=== PATIENT | female | born 1955 | race Caucasian/White ===

== ENCOUNTER → 2017-03-09 | Outpatient (CLI) | payer OTHER ==
--- NOTE | 2017-03-13 09:18 | MM ---
Reason for exam: screening (asymptomatic). Last mammogram was performed 8 years and 9 months ago. History: Patient is postmenopausal and has history of other cancer at age 49. Took estrogen for 2 years 2 months. Physical Findings: A clinical breast exam by your physician is recommended on an annual basis and results should be correlated with mammographic findings. MG Screening Mammo w CAD Bilateral CC and MLO view(s) were taken. Prior study comparison: May 29, 2008, bilateral digital screening mammogram. October 10, 2003, bilateral screening mammogram. There are scattered fibroglandular densities. Asymmetric breast tissue right inner lower quadrant, stable. There is no discrete abnormality. ASSESSMENT: Benign, BI-RAD 2 RECOMMENDATION: Routine screening mammogram of both breasts in 1 year.
== END | disposition home or self-care (01) ==
LOC: RADMAMWWP 15:31
PROVIDERS: ATTEND Family Medicine
DX: Z12.31 Encounter for screening mammogram for malignant neoplasm of breast (principal)

== ENCOUNTER 2017-03-13 09:16 | Day surgery (SDC) | payer OTHER ==
[2017-03-11 16:26] VITALS: BMI 28.2
[~2017-03-13 09:16] MED LIST: LACTATED RINGERS 1,000 ML IV SCH
[2017-03-13 09:38] VITALS: TEMP 98
[2017-03-13] MEDS ORDERED: LACTATED RINGERS 1,000 ML IV ONE (09:38)
[2017-03-13] MEDS ORDERED: LIDOCAINE 1% 20 ML VIAL (10MG/ML) FOR IV START INTRADERMA ONE (09:39)
[2017-03-13 09:48] LABS: Glucose,Whole Blood 92 mg/dL (75-99)
[2017-03-13] MEDS ORDERED: PROPOFOL 10 MG/ML 20 ML VIAL IV ONE (09:53)
[2017-03-13] MEDS ORDERED: LIDOCAINE 1% INJ 10MG/ML (20 ML MDV) ONE (09:53)
[2017-03-13 10:17] VITALS: RESP 16
--- NOTE | 2017-03-13 10:31 | P.OP ---
Date of Procedure: 03/13/17 Preoperative Diagnosis: History of Crohn's disease Surveillance colonoscopy Postoperative Diagnosis: Sigmoid diverticulosis Internal hemorrhoids Procedure(s) Performed: Colonoscopy Implants: NA Anesthesia: MAC Surgeon: Natasha Clifford Pathology: none sent Condition: stable Disposition: PACU Indications for Procedure: 61 years old female presents for screening colonoscopy. Known history of Crohn' s disease for more than 10 years. Her Crohn's is well controlled. On consent obtained and she elected to undergo colonoscopy with possible biopsy Operative Findings: Sigmoid diverticulosis Internal hemorrhoids Description of Procedure: The patient was brought to the endoscopy suite and placed in lateral decubitus position. IV sedation was given as per anesthesia team. Patient was on continuous vitals and pulse oximetry monitoring throughout the procedure. A timeout was performed to verify correct patient and correct procedure. Perianal examination did not show any external hemorrhoids. Digital rectal examination was performed. No masses or gross blood. A well-lubricated Olympus colonoscope was passed per rectally and was gradually advanced beyond the sigmoid colon, splenic flexure, transverse colon, hepatic flexure and cecum. The ileocecal valve was visualized as well as the appendiceal orifice . The colonoscope was gradually withdrawn inspecting all the mucosal surfaces. Bowel prep was good. No polyps, masses, AV malformations noted. Sigmoid diverticulosis noted without any evidence of acute diverticulitis. The scope was gradually withdrawn and retroflexed in the rectum . Grade 1 internal hemorrhoids seen. Total withdrawal time was greater than 6 minutes . Patient tolerated the procedure well and was taken to post anesthesia care unit in stable condition. Recommend repeat colonoscopy in 10 years .
[2017-03-13 10:32] VITALS: BP 145/91; PULSE 59
== END 2017-03-13 10:51 | disposition home or self-care (01) ==
LOC: ORWHC2ENDO 09:16
PROVIDERS: ATTEND Surgery
DX: Z12.11 Encounter for screening for malignant neoplasm of colon (principal); K57.30 Diverticulosis of large intestine without perforation or abscess without bleeding; K64.8 Other hemorrhoids; K50.90 Crohn's disease, unspecified, without complications; Z90.49 Acquired absence of other specified parts of digestive tract; K21.9 Gastro-esophageal reflux disease without esophagitis; Z79.52 Long term (current) use of systemic steroids; Z79.899 Other long term (current) drug therapy; F17.200 Nicotine dependence, unspecified, uncomplicated
CPT/HCPCS: J2001; J2704; G0105

== ENCOUNTER 2017-08-31 15:09 | Inpatient (IN) | payer OTHER ==
[2017-08-31] MEDS ORDERED: PANTOPRAZOLE 40 MG/10 ML VIAL IVP STA (16:42)
[2017-08-31 17:01] LABS: Anisocytosis Slight; Hypochromasia Marked; MCH 16.5 pg (25.0-35.0); MCHC 24.8 g/dL (31.0-37.0); MCV 66.6 fL (80.0-100.0); Mean Platelet Volume 6.4; Microcytosis Marked; Platelet Count 676 k/uL (150-450); Poikilocytosis Slight; RBC 2.43 m/uL (3.80-5.40); RDW 17.4 % (11.5-15.5); WBC 4.2 k/uL (3.8-10.6)
--- NOTE | 2017-08-31 17:01 | ED ---
Recheck HPI - General Chief Complaint: Recheck/Abnormal Lab/Rx Stated Complaint: SOB Time Seen by Provider: 08/31/17 16:15 Source: patient, RN notes reviewed Mode of arrival: ambulatory Limitations: no limitations - History of Present Illness Initial Comments: This is a 62-year-old female with a history of Crohn's disease who states she has had for the past week some dark brown colored stools some shortness of breath and some weakness. She also states she's had burning mid epigastric pain that she thought was her reflux. She had labs done in her doctor's office and she was told her hemoglobin was low and she needed to come the emergency department. She currently denies any fevers chills nausea vomiting sweats she has some mild right lower quadrant pain she states no dysuria no hematuria. She has no prior history of GI bleed. She has not had a colonoscopy for some period of time. MD Complaint: abnormal lab - Related Data Home Medications Medication Instructions Recorded Confirmed Cefuroxime Axetil [Ceftin] 500 mg PO Q12H 08/31/17 08/31/17 Meclizine [Antivert] 25 mg PO TID PRN 08/31/17 08/31/17 Ondansetron [Zofran] 4 mg PO Q8HR PRN 08/31/17 08/31/17 Allergies Allergy/AdvReac Type Severity Reaction Status Date / Time No Known Allergies Allergy Verified 08/31/17 16:29 Review of Systems ROS Statement: Those systems with pertinent positive or pertinent negative responses have been documented in the HPI. ROS Other: All systems not noted in ROS Statement are negative. Past Medical History Additional Past Medical History / Comment(s): CROHNS History of Any Multi-Drug Resistant Organisms: None Reported Past Surgical History: Bowel Resection, Cholecystectomy, Hernia Repair, Hysterectomy, Tonsillectomy Additional Past Surgical History / Comment(s): COLONOSCOPY Past Anesthesia/Blood Transfusion Reactions: No Reported Reaction Past Psychological History: No Psychological Hx Reported Smoking Status: Former smoker Past Alcohol Use History: None Reported Past Drug Use History: None Reported - Past Family History Father Family Medical History: Cancer Additional Family Medical History / Comment(s): lung Mother Family Medical History: Cancer Additional Family Medical History / Comment(s): brain General Exam - General Exam Comments Initial Comments: This is a well-developed well-nourished awake alert oriented 3 female she does appear pale Limitations: no limitations General appearance: alert, in no apparent distress Head exam: Present: atraumatic, normocephalic, normal inspection Eye exam: Present: PERRL, EOMI, other (Pale conjunctiva). Absent: scleral icterus, conjunctival injection, periorbital swelling ENT exam: Present: mucous membranes moist, other (Pale oral mucosa) Neck exam: Present: normal inspection. Absent: tenderness, meningismus, lymphadenopathy Respiratory exam: Present: normal lung sounds bilaterally. Absent: respiratory distress, wheezes, rales, rhonchi, stridor Cardiovascular Exam: Present: regular rate, normal rhythm, normal heart sounds. Absent: systolic murmur, diastolic murmur, rubs, gallop, clicks GI/Abdominal exam: Present: soft, tenderness (Very mild right lower quadrant discomfort to palpation no guarding or rebound), normal bowel sounds. Absent: distended, guarding, rebound, rigid Rectal exam: Present: normal inspection Extremities exam: Present: normal inspection, full ROM, normal capillary refill. Absent: tenderness, pedal edema, joint swelling, calf tenderness Back exam: Present: normal inspection Neurological exam: Present: alert, oriented X3, CN II-XII intact Psychiatric exam: Present: normal affect, normal mood Skin exam: Present: warm, dry, intact, pallor. Absent: rash Course Vital Signs 08/31/17 15:21 Temperature 99.0 F Pulse Rate 97 Respiratory 18 Rate Blood Pressure 144/64 O2 Sat by Pulse 100 Oximetry - Reevaluation(s) Reevaluation #1: 08/31/17 17:34 Reevaluation patient reveals no change in her status. She maintains her vital signs. No symptoms at rest. I did discuss findings with the patient and her . Patient be admitted I also did discuss the case with Dr. Narayanan. Patient will be admitted for units of blood will be ordered GI consultation. Medical Decision Making - Lab Data Result diagrams: 08/31/17 16:10 08/31/17 16:10 Lab Results 08/31/17 08/31/17 08/31/17 Range/Units 16:10 16:10 16:10 WBC 4.2 (3.8-10.6) k/uL RBC 2.43 L (3.80-5.40) m/uL Hgb 4.0 L* (11.4-16.0) gm/dL Hct 16.2 L* (34.0-46.0) % MCV 66.6 L (80.0-100.0) fL MCH 16.5 L (25.0-35.0) pg MCHC 24.8 L (31.0-37.0) g/dL RDW 17.4 H (11.5-15.5) % Plt Count 676 H (150-450) k/uL PT (9.0-12.0) sec INR (<1.2) APTT (22.0-30.0) sec Sodium 141 (137-145) mmol/L Potassium 4.2 (3.5-5.1) mmol/L Chloride 105 (98-107) mmol/L Carbon Dioxide 26 (22-30) mmol/L Anion Gap 10 mmol/L BUN 14 (7-17) mg/dL Creatinine 0.82 (0.52-1.04) mg/dL Est GFR (MDRD) Af Amer >60 (>60 ml/min/1.73 sqM) Est GFR (MDRD) Non-Af >60 (>60 ml/min/1.73 sqM) Glucose 84 (74-99) mg/dL Calcium 9.7 (8.4-10.2) mg/dL Magnesium 2.2 (1.6-2.3) mg/dL Total Bilirubin 0.3 (0.2-1.3) mg/dL AST 24 (14-36) U/L ALT 18 (9-52) U/L Alkaline Phosphatase 108 (38-126) U/L Total Creatine Kinase 53 (30-135) U/L CK-MB (CK-2) 0.5 (0.0-2.4) ng/mL CK-MB (CK-2) Rel Index 0.9 Troponin I <0.012 (0.000-0.034) ng/mL Total Protein 6.5 (6.3-8.2) g/dL Albumin 3.8 (3.5-5.0) g/dL Stool Occult Blood (Negative) Blood Type Blood Type Recheck Antibody Screen Spec Expiration Date 08/31/17 08/31/17 08/31/17 Range/Units 16:10 16:10 16:10 WBC (3.8-10.6) k/uL RBC (3.80-5.40) m/uL Hgb (11.4-16.0) gm/dL Hct (34.0-46.0) % MCV (80.0-100.0) fL MCH (25.0-35.0) pg MCHC (31.0-37.0) g/dL RDW (11.5-15.5) % Plt Count (150-450) k/uL PT 9.6 (9.0-12.0) sec INR 1.0 (<1.2) APTT 18.7 L (22.0-30.0) sec Sodium (137-145) mmol/L Potassium (3.5-5.1) mmol/L Chloride (98-107) mmol/L Carbon Dioxide (22-30) mmol/L Anion Gap mmol/L BUN (7-17) mg/dL Creatinine (0.52-1.04) mg/dL Est GFR (MDRD) Af Amer (>60 ml/min/1.73 sqM) Est GFR (MDRD) Non-Af (>60 ml/min/1.73 sqM) Glucose (74-99) mg/dL Calcium (8.4-10.2) mg/dL Magnesium (1.6-2.3) mg/dL Total Bilirubin (0.2-1.3) mg/dL AST (14-36) U/L ALT (9-52) U/L Alkaline Phosphatase (38-126) U/L Total Creatine Kinase (30-135) U/L CK-MB (CK-2) (0.0-2.4) ng/mL CK-MB (CK-2) Rel Index Troponin I (0.000-0.034) ng/mL Total Protein (6.3-8.2) g/dL Albumin (3.5-5.0) g/dL Stool Occult Blood Negative (Negative) Blood Type A Positive Blood Type Recheck CABO Indicated Antibody Screen NEGATIVE Spec Expiration Date 09/03/2017 - 2309 - EKG Data -: EKG Interpreted by Tx EKG shows normal: sinus rhythm (Sinus rhythm rate of 85 CT interval 174 QRS 94 QT since QTC 380/452 this is a normal-appearing EKG.) Critical Care Time Critical Care Time: Yes Critical Care Time: 31 minutes of critical care time which includes initial presentation with history physical labs x-rays several reevaluation the patient. Discussion with the patient family regarding findings discussion with the admitting physician documentation of the above. Disposition Clinical Impression: Symptomatic anemia, GI bleed Disposition: ADMITTED IP TO THIS [facility] Condition: Stable Referrals: Avelino Mendoza MD [Primary Care Provider] - 1-2 days
[2017-08-31 17:07] LABS: ALT 18 U/L (9-52); AST 24 U/L (14-36); Albumin 3.8 g/dL (3.5-5.0); Alkaline Phosphatase 108 U/L (38-126); Anion Gap 10 mmol/L; Blood Urea Nitrogen 14 mg/dL (7-17); Calcium 9.7 mg/dL (8.4-10.2); Carbon Dioxide 26 mmol/L (22-30); Chloride 105 mmol/L (98-107); Glucose 84 mg/dL (74-99); Magnesium 2.2 mg/dL (1.6-2.3); Potassium 4.2 mmol/L (3.5-5.1); Sodium 141 mmol/L (137-145); Total Bilirubin 0.3 mg/dL (0.2-1.3); Total Protein 6.5 g/dL (6.3-8.2)
[2017-08-31 17:08] LABS: Prothrombin Time 9.6 sec (9.0-12.0)
[2017-08-31 17:15] LABS: HCT 16.2 % (34.0-46.0)
[2017-08-31 17:18] LABS: Creatine Kinase 53 U/L (30-135)
[2017-08-31 17:26] LABS: Partial Thromboplastin Time 18.7 sec (22.0-30.0)
[2017-08-31 17:31] LABS: Creatine Kinase MB 0.5 ng/mL (0.0-2.4); Troponin I <0.012 ng/mL (0.000-0.034)
[2017-08-31] MEDS ORDERED: NALOXONE 0.4 MG/ML 1 ML VIAL IV PRN (17:36)
[2017-08-31] MEDS ORDERED: ONDANSETRON 4 MG TAB PO PRN (17:39)
[2017-08-31] MEDS ORDERED: MECLIZINE 25 MG TAB PO PRN (17:39)
[2017-08-31 17:44] LABS: Eosinophils # (M) 0.13 k/uL (0-0.7); Lymphocytes # (M) 1.05 k/uL (1.0-4.8); Monocytes # (M) 0.38 k/uL (0-1.0); Neutrophils # (M) 2.65 k/uL (1.3-7.7); Neutrophils % (M) 63 %; Nucleated Red Blood Cells 0 /100 WBC (0-0); Total Cells Counted 100
[2017-08-31 17:45] LABS: Polychromasia Present; RBC Fragments Present
--- NOTE | 2017-08-31 18:27 | XR ---
EXAMINATION TYPE: XR abdomen acute w cxr DATE OF EXAM: 08/31/2017 COMPARISON: NONE HISTORY: Follow-up obstruction. Abdominal pain. TECHNIQUE: 3 views FINDINGS: Heart is normal. Lungs are clear of consolidation. There are no hilar masses. There is a hiatal herni a. Thoracic aorta is atheromatous. There are chest leads. The bowel gas pattern is normal. There is no sign of intestinal obstruction or pneumoperitoneum. Feca l pattern is normal. There are no pathologic calcifications over the right kidney. There are several calcifications over the left kidney that measure up to 1 cm. The bony structures are intact. There is no evidence of a mass. IMPRESSION: Hiatal hernia. No active cardiopulmonary disease. There are probably left renal calculi. Nonacute abd omen. No evidence of bowel obstruction.
[2017-08-31] MEDS: SODIUM CHLORIDE 0.9% 1,000 ML IV SCH (18:34)
[2017-08-31] MEDS: CEFUROXIME 250 MG TAB PO SCH (21:05)
[2017-08-31] MEDS: PANTOPRAZOLE 40 MG/10 ML VIAL IV SCH (21:05)
--- NOTE | 2017-09-01 05:35 | HP ---
HISTORY AND PHYSICAL DATE OF SERVICE: 08/31/2017 Chief complaints are shortness of breath and as well as anemia. HISTORY OF PRESENT ILLNESS: This 62-year-old woman with a past medical history of multiple medical problems including history of Crohn's, history of GERD, history of adenoidectomy, bowel resection being followed by Dr. Mendoza in the outpatient setting progressively becoming shortness of breath and as well as weak. The patient has some dark brown stools and the patient also has some epigastric pain also. Patient thought the patient was having reflux and hemoglobin was checked in the doctor's office and subsequent hemoglobin was found to be very low and the patient taken to [facility] and admitted for further evaluation and treatment. Hemoglobin was found to be 4. Multiple transfusions are at this time. There is no history of any fever or rigors. No history of headache, loss of consciousness, seizures. PAST MEDICAL HISTORY: History of GERD, Crohn's disease, adenoidectomy, bowel resection. MEDICATIONS: Medications prior to admission include: 1. Zofran 4 mg q.8 p.r.n. 2. Antivert 25 mg t.i.d. p.r.n. 3. Ceftin 500 mg p.o. b.i.d. ALLERGIES: Allergies are none. FAMILY HISTORY: History of lung cancer in the family. SOCIAL HISTORY: Previous history of smoking. No history of current smoking. No alcohol intake. REVIEW OF SYSTEMS: ENT: No diminished hearing or diminished vision. CARDIOVASCULAR: No angina. RESPIRATORY: No cough or hemoptysis. GI: As mentioned earlier. : No dysuria. NERVOUS SYSTEM: No numbness or weakness. ALLERGY/IMMUNOLOGY: No history of asthma. MUSCULOSKELETAL: As mentioned earlier. HEMATOLOGY/ONCOLOGY: As mentioned earlier. ENDOCRINE: No history of diabetes or hypothyroidism. CONSTITUTIONAL: As mentioned earlier. DERMATOLOGY: Negative. RHEUMATOLOGY: Negative. PSYCHIATRY: As mentioned earlier. PHYSICAL EXAMINATION: The patient is alert and oriented x3. Pulse is 75, blood pressure is 133/69, respirations 16, temperature 97.9, pulse ox 97% on room air. HEENT: Conjunctivae pale. Oral mucosa moist. Neck is no jugular venous distention. No carotid bruit. No lymph node enlargement. CARDIOVASCULAR: S1 and S2 muffled. No S3 or S4. Ejection systolic murmur. RESPIRATORY: Breath sounds diminished at the bases. A few scattered rhonchi. No crackles. ABDOMEN: Soft, nontender. No mass palpable. LEGS: Minimal bilateral leg edema. NERVOUS SYSTEM: Higher functions as mentioned earlier. Moves all 4 limbs. No focal motor or sensory deficits LYMPHATICS: No lymphadenopathy of the neck, axillae or groin. SKIN: No ulcer, rash or bleeding. LABS: Labs are at this time shows WBC 4.2, hemoglobin is 4, MCV 66.6. ASSESSMENT: 1. Acute on chronic microcytic anemia possibly acute on chronic blood-loss anemia. 2. History of Crohn disease. 3. History of gastroesophageal reflux disease. 4. Rule out peptic ulcer disease. 5. History of bowel resection. 6. History of hernia surgery. RECOMMENDATIONS AND DISCUSSION: In this 62-year-old woman who presented with multiple complex medical issues, will monitor the patient closely, continue the current medications and symptomatic treatment. Recommend proton pump inhibitors, transfusions cautiously. Otherwise resume the home medications. Gastroenterology evaluation. The patient may need full endoscopy workup including possibly upper and lower endoscopic studies. The prognosis guarded because of multiple complex medical issues and will arrange for repeat labs tomorrow. Discussed with the patient. The patient understands and agrees. Further recommendations to follow. A copy of dictation being forwarded to Dr. Mendoza who is the primary physician. MMODL / IJN: [id number] / MTDD
[2017-09-01] MEDS ORDERED: FUROSEMIDE 10 MG/ML 2 ML VIAL IV ONE (07:34)
[2017-09-01] MEDS: CEFUROXIME 250 MG TAB PO SCH ×2 (07:55→20:46)
--- NOTE | 2017-09-01 10:44 | P.CONS ---
History of Present Illness - Reason for Consult Consult date: 09/01/17 Anemia Requesting physician: [place] Narayanan - History of Present Illness 62-year-old female patient Dr. Mendoza past medical history of Crohn's disease diagnosed at 16 years of age with no maintenance therapy, ileocecectomy, bowel resection for diverticulitis complications, GERD, and cholecystectomy. Admitted with fatigue 1 month without chest pain or shortness of breath. Denies overt bleeding such as hematemesis hematochezia melena hematuria or vaginal bleeding. Admission hemoglobin 4. MCV 66. Platelets 676. INR 1.0. White count 4.2. BUN 14. Creatinine 0.8. Received 3 units of blood with additional unit pending. Last colonoscopy several years ago. No EGD. She's been experiencing increased indigestion without relief from over-the- counter antacids for more than 6 months. Denies aspirin or NSAID usage. No alcohol. History of anemia during her pregnancies. Takes vitamin B and occasional multivitamin daily as needed. Denies abdominal pain or weight loss. Acute abdominal series no evidence of bowel obstruction. Review of Systems Constitutional: Denies fever, chills, sweats, weight gain, or loss. HEENT: Negative for migraines, blurred vision or loss, earaches, drainage, tinnitus, oral mucosal lesions, dysphagia, or odynophagia. CARDIAC: Negative for chest pain, arrhythmias, or palpitation. RESPIRATORY: Negative for shortness of breath, hemoptysis, cough, or sputum production. GI: See HPI for pertinent findings. : Negative for hematuria, urgency, frequency, polyuria, or dysuria. GYNc: Negative vaginal discharge. MUSCULOSKELETAL: Negative for muscle aches, swelling, arthritis, and arthralgias. NEUROLOGIC: Negative for stroke or TIA. ENDOCRINE: Negative for thyroid problems. SKIN: Negative for rash or itching. PSYCHIATRIC: Negative history for depression and anxiety Past Medical History Past Medical History: Cancer, GERD/Reflux Additional Past Medical History / Comment(s): CROHNS ,past sbo-no sx,abd hernia( sx), past cluster headaches, bronchitis,sinus pbs, diverticulitis, skin cancer. History of Any Multi-Drug Resistant Organisms: None Reported Past Surgical History: Adenoidectomy, Bowel Resection, Cholecystectomy, Hernia Repair, Hysterectomy, Tonsillectomy Additional Past Surgical History / Comment(s): COLONOSCOPY,per mph "cecum repair " done 20 years ago Past Anesthesia/Blood Transfusion Reactions: Motion Sickness Smoking Status: Former smoker - Past Family History Father Family Medical History: Cancer Additional Family Medical History / Comment(s): lung Mother Family Medical History: Cancer Additional Family Medical History / Comment(s): brain Medications and Allergies Home Medications Medication Instructions Recorded Confirmed Type Cefuroxime Axetil [Ceftin] 500 mg PO Q12H 08/31/17 08/31/17 History Meclizine [Antivert] 25 mg PO TID PRN 08/31/17 08/31/17 History Ondansetron [Zofran] 4 mg PO Q8HR PRN 08/31/17 08/31/17 History Allergies Allergy/AdvReac Type Severity Reaction Status Date / Time No Known Allergies Allergy Verified 08/31/17 16:29 Physical Exam Vitals: Vital Signs Temp Pulse Pulse Resp BP BP Pulse Ox 09/01/17 07:47 98.5 F 87 18 143/77 98 09/01/17 07:17 98.1 F 72 18 137/75 95 09/01/17 07:07 98.9 F 74 18 141/67 95 09/01/17 05:49 98.4 F 78 16 136/82 09/01/17 03:38 98.4 F 84 16 139/51 96 09/01/17 03:37 98.4 F 84 18 139/51 96 09/01/17 03:08 98.5 F 75 16 141/70 94 L 09/01/17 02:58 98.1 F 75 18 138/73 98 09/01/17 01:07 98.5 F 75 16 141/70 94 L 09/01/17 00:00 98.0 F 78 16 134/68 98 08/31/17 23:32 98.0 F 78 16 134/68 98 08/31/17 23:02 97.9 F 75 16 133/69 97 08/31/17 22:52 97.8 F 77 16 137/80 96 08/31/17 22:23 97.8 F 77 18 137/80 08/31/17 20:33 98.1 F 86 16 131/79 96 08/31/17 20:03 98.0 F 85 16 128/68 98 08/31/17 20:00 98.0 F 85 16 128/68 98 08/31/17 19:53 97.7 F 93 16 153/71 99 08/31/17 18:34 97 F L 87 18 161/69 100 08/31/17 18:00 98.1 F 97 20 125/60 98 08/31/17 15:21 99.0 F 97 18 144/64 100 Intake and Output 08/31/17 09/01/17 09/01/17 22:59 06:59 14:59 Intake Total 310 870 480 Balance 310 870 480 Intake: Intake, IV Titration 100 Amount Sodium Chloride 0.9% 1, 100 000 ml @ 20 mls/hr IV . Q24H [facility] Rx#:[id number] Oral 150 480 Blood Product 310 620 0 Rc As-1 Unit 0 310 [id number] Rc As-3 Unit 310 [id number] Rc As-3 Unit 0 [id number] Rc As-3 Unit 310 [id number] Other: Voiding Method Toilet Toilet Toilet # Voids 3 1 Weight 81.647 kg 84.7 kg General appearance: The patient is alert, oriented, in no acute distress. HET: Head is normocephalic and atraumatic. Pupils are equal and reactive. Oropharynx is clear without lesions. Neck: Supple without lymphadenopathy. Trachea midline. Heart: S1 S2. Regular rate and rhythm. Lungs: No crackles or wheezes are heard. Abdomen: Soft, nontender, nondistended with bowel sounds. No peritoneal signs. No palpable organomegaly or masses. Extremities: Normal skin color and turgor. No cyanosis, rash, ulceration, clubbing, or edema. Radial and pedal pulses are 2/4 bilaterally. Neurological: No focal deficits. Strength and sensation are grossly intact. Results CBC & Chem 7: 08/31/17 16:10 08/31/17 16:10 Labs: Abnormal Lab Results - Last 24 Hours (Table) 08/31/17 08/31/17 08/31/17 Range/Units 16:10 16:10 16:10 RBC 2.43 L (3.80-5.40) m/uL Hgb 4.0 L* (11.4-16.0) gm/dL Hct 16.2 L* (34.0-46.0) % MCV 66.6 L (80.0-100.0) fL MCH 16.5 L (25.0-35.0) pg MCHC 24.8 L (31.0-37.0) g/dL RDW 17.4 H (11.5-15.5) % Plt Count 676 H (150-450) k/uL APTT 18.7 L (22.0-30.0) sec Crossmatch See Detail Abdominal x-ray: report reviewed (Dr. Trejo) Assessment and Plan (1) Symptomatic anemia Narrative/Plan: 62-year-old female admitted with symptomatic anemia with a history of Crohn's disease, ileocecectomy, diagnosed at 16 years of age without overt bleeding such as hematemesis hematochezia melena. Possible anemia of chronic disease possible occult GI loss. Current Visit: Yes Status: Acute Code(s): D64.9 - ANEMIA, UNSPECIFIED SNOMED Code(s): 941025324 (2) History of Crohn's disease Current Visit: Yes Status: Chronic Code(s): Z87.19 - PERSONAL HISTORY OF OTHER DISEASES OF THE DIGESTIVE SYSTEM SNOMED Code(s): 401343683899788 (3) GERD (gastroesophageal reflux disease) Current Visit: Yes Status: Chronic Code(s): K21.9 - GASTRO-ESOPHAGEAL REFLUX DISEASE WITHOUT ESOPHAGITIS SNOMED Code(s): 238301740 Plan: 1. Iron indices. MVI daily. 2. Blood transfusions. CBC monitoring. 3. EGD colonoscopy evaluation scheduled tomorrow afternoon. The as400 consultant has discussed the risks, benefits and alternative therapies for the above-mentioned procedure and for both sedation/analgesia as well as necessary blood product administration, if indicated, as they pertain to this patient. The patient has indicated understanding and acceptance of the risks and procedures discussed. Thank you for this kind referral and the opportunity to participate in the care of your patient. This consultation was discussed with Dr. Trejo. The impression and plan of care have been directed as dictated.
[2017-09-01] MEDS: PANTOPRAZOLE 40 MG/10 ML VIAL IV SCH ×2 (10:52→20:46)
[2017-09-01] MEDS: SODIUM CHLORIDE 0.9% 1,000 ML IV SCH (10:53)
[2017-09-01] MEDS: MULTIVITAMINS, THERA 1 EACH TAB PO SCH (11:25)
[2017-09-01] MEDS ORDERED: FOLIC ACID 1 MG TAB PO SCH (12:00)
[2017-09-01 13:36] LABS: Anisocytosis Slight; Basophils % (A) 0 %; Eosinophils # (A) 0.2 k/uL (0-0.7); Eosinophils % (A) 5 %; HCT 30.2 % (34.0-46.0); Hypochromasia Marked; Lymphocytes % (A) 22 %; MCH 22.9 pg (25.0-35.0); MCHC 29.7 g/dL (31.0-37.0); Mean Platelet Volume 6.1; Microcytosis Moderate; Monocytes # (A) 0.3 k/uL (0-1.0); Monocytes % (A) 7 %; Neutrophils # (A) 2.8 k/uL (1.3-7.7); Neutrophils % (A) 64 %; Platelet Count 565 k/uL (150-450); Poikilocytosis Marked; RBC 3.92 m/uL (3.80-5.40); RDW 19.6 % (11.5-15.5); WBC 4.4 k/uL (3.8-10.6)
[2017-09-01 13:46] LABS: Anion Gap 12 mmol/L; Blood Urea Nitrogen 9 mg/dL (7-17); Calcium 9.4 mg/dL (8.4-10.2); Carbon Dioxide 26 mmol/L (22-30); Chloride 104 mmol/L (98-107); Glucose 144 mg/dL (74-99); Potassium 4.2 mmol/L (3.5-5.1); Sodium 142 mmol/L (137-145)
[2017-09-01] MEDS ORDERED: PEG 3350-NA SULF,BICARB,CL/KCL 4,000 ML BOTTLE PO ONE (16:00)
--- NOTE | 2017-09-01 18:12 | PN ---
PROGRESS NOTE DATE OF SERVICE: 09/01/2017 This 62-year-old woman who was admitted with significant anemia, possibly acute on chronic GI bleed, had a hemoglobin of 4. After 4 units of transfusion, hemoglobin is 9 at this time. No chest pain. No palpitations. No fever. Gastroenterology is following the patient and recommended EGD and colonoscopy tomorrow. On exam, alert and oriented x3. Pulse 79, blood pressure 144/73, respiration 18, temperature 98.8, pulse ox 99% on room air. HEENT: Conjunctivae normal. Oral mucosa moist. NECK: No jugular venous distention. No carotid bruit. No lymph node enlargement. CARDIOVASCULAR SYSTEM: S1, S2 muffled. Ejection systolic murmur. No S3. No S4. RESPIRATORY SYSTEM: Breath sounds diminished at the bases. No rhonchi. No crackles. ABDOMEN: Soft, nontender. No mass palpable. LEGS: Minimal edema. NERVOUS SYSTEM: No focal deficit. LABS: WBC 4.5. Hemoglobin is 9. MCV is 77. ASSESSMENT: 1. Acute on chronic microcytic anemia, possibly acute on chronic gastrointestinal blood loss anemia. 2. History of Crohn's disease. 3. History of gastroesophageal reflux disease. 4. Rule out peptic ulcer disease. 5. History of bowel resection. 6. History of hernia surgery. RECOMMENDATIONS AND DISCUSSION: I recommend to continue current medication, continue symptomatic treatment. Hemoglobin is improved after transfusion; however, we will proceed with EGD and colonoscopy as recommended by Gastroenterology. Possibility of peptic ulcer disease needs to be ruled out because the patient had upper GI symptoms also. The prognosis is guarded because of the multiple complex medical issues. Further recommendations to follow. MMODL / IJN: [id number] /
[2017-09-01 19:37] LABS: Iron Saturation 8.66 (12.00-45.00)
[2017-09-01] MEDS ORDERED: ACETAMINOPHEN TAB 325 MG TAB PO PRN (20:38)
[2017-09-01 22:42] VITALS: RESP 16
[2017-09-02 06:11] LABS: Anisocytosis Moderate; Basophils % (A) 1 %; Eosinophils # (A) 0.3 k/uL (0-0.7); Eosinophils % (A) 7 %; HCT 29.3 % (34.0-46.0); HGB 8.7 gm/dL (11.4-16.0); Hypochromasia Marked; Lymphocytes # (A) 1.3 k/uL (1.0-4.8); Lymphocytes % (A) 28 %; MCHC 29.8 g/dL (31.0-37.0); MCV 77.1 fL (80.0-100.0); Mean Platelet Volume 6.6; Microcytosis Moderate; Monocytes # (A) 0.3 k/uL (0-1.0); Monocytes % (A) 7 %; Neutrophils # (A) 2.6 k/uL (1.3-7.7); Neutrophils % (A) 55 %; Platelet Count 553 k/uL (150-450); Poikilocytosis Marked; RDW 20.2 % (11.5-15.5); WBC 4.7 k/uL (3.8-10.6)
[2017-09-02 06:21] LABS: Anion Gap 8 mmol/L; Blood Urea Nitrogen 7 mg/dL (7-17); Calcium 9.4 mg/dL (8.4-10.2); Carbon Dioxide 28 mmol/L (22-30); Chloride 103 mmol/L (98-107); Glucose 85 mg/dL (74-99); Potassium 4.2 mmol/L (3.5-5.1); Sodium 139 mmol/L (137-145)
[2017-09-02] MEDS ORDERED: LACTATED RINGERS 1,000 ML IV SCH (07:21)
[2017-09-02] MEDS: CEFUROXIME 250 MG TAB PO SCH (09:33)
[2017-09-02] MEDS: PANTOPRAZOLE 40 MG/10 ML VIAL IV SCH (09:33)
[2017-09-02] MEDS: MULTIVITAMINS, THERA 1 EACH TAB PO SCH (11:27)
[2017-09-02 11:39] VITALS: TEMP 97.6
[2017-09-02] MEDS ORDERED: PROPOFOL 10 MG/ML 20 ML VIAL IV ONE (13:03)
[2017-09-02] MEDS ORDERED: LIDOCAINE 1% INJ 10MG/ML (20 ML MDV) ONE (13:03)
[2017-09-02] MEDS ORDERED: IV FLUID CONTINUATION 900 ML IV ONE (13:07)
--- NOTE | 2017-09-02 14:01 | P.PCN ---
Date of Procedure: 09/02/17 Procedure(s) Performed: Procedures: 1. Esophagogastroduodenoscopy and biopsy. 2. Colonoscopy and biopsy. Preoperative diagnosis: Symptomatic iron deficiency anemia and history of Crohn' s disease. Postoperative diagnosis: 1. Hiatal hernia with no obvious esophagitis or complicated reflux disease. 2. Mild antral gastritis. 3. Colon diverticulosis with no evidence of inflammatory bowel disease. 4. Biopsies obtained from the duodenum, antrum, esophagus and random colon. Preparation: GoLYTELY prep. Sedation: Was provided by anesthesia. Brief clinical history: The patient is a 62-year-old female with past medical history of Crohn's disease diagnosed at age 16 years on no maintenance therapy, with prior ileocecectomy, bowel resection for diverticulitis complications, GERD , and cholecystectomy, was admitted with fatigue 1 month without chest pain or shortness of breath. Denies overt bleeding. Admission hemoglobin 4. MCV 66. Platelets 676. INR 1.0. White count 4.2. BUN 14. Creatinine 0.8. Received 4 units of packed cells. Her last colonoscopy was several years ago, no prior EGD. She's been experiencing increased indigestion without relief from over-the- counter antacids for more than 6 months. Denies aspirin or NSAID usage. No alcohol. History of anemia during her pregnancies. Takes vitamin B and occasional multivitamin daily as needed. Denies abdominal pain or weight loss. Acute abdominal series no evidence of bowel obstruction. The details are summarized in the history and physical and dictated consultations and progress notes. This evaluation is to assess for a possible source of GI bleeding and anemia. Procedure: With the patient on her left lateral decubitus position and after informed consent and adequate sedation, I passed the Olympus-GIF 160 video upper endoscope through the cricopharyngeus down the esophagus. GE junction was around 33 cm from the incisors and there was a moderately sized hiatal hernia but no obvious esophagitis or complicated reflux disease. The endoscope was then passed into the stomach which was insufflated with air and inspected in detail including the retroflex view in the cardia. There was minimal mottling and erythema in the antrum but no ulcers or erosions. Pyloric channel , duodenal bulb, post bulbar area and descending duodenum appeared within normal limits. Because of her history, I obtained biopsies from the duodenum, antrum and esophagus then the endoscope was withdrawn and I proceeded with the colonoscopy. Perianal area did not show any fissures or fistulas. There were no masses felt on digital rectal examination. The Olympus CFQ 160L video colonoscope was then inserted in the rectum in the usual fashion and advanced to the right colon and what appeared to be the last compartment on the right side, but I could not see an anastomosis with the small bowel and I was not able to identify and intubate the small intestine. In the areas examined, the mucosa appeared healthy. Multiple diverticular orifices were seen scattered mostly on the left side with no evidence of acute diverticulitis or strictures. No polyps or tumors were seen. Because of her history, I obtained biopsies randomly from the colon then I retroflexed the endoscope in the rectum before the endoscope was withdrawn. The patient tolerated the procedure well. Plan: I summarized the findings to the patient. Because of her profound anemia , consideration will be given for a small bowel study based on her course and biopsy results. We will continue to follow with you with interest.
[2017-09-02 15:47] VITALS: BP 148/77; PULSE 74
--- NOTE | 2017-09-03 07:02 | DS ---
DISCHARGE SUMMARY DATE OF SERVICE: 09/02/2017 FINAL DIAGNOSES: 1. Acute on chronic microcytic anemia possibly acute on chronic gastrointestinal blood loss secondary to Crohn disease. 2. Status post EGD and colonoscopy showing hiatal hernia with no esophagitis or reflux disease; mild antral gastritis and diverticulosis with no evidence of inflammatory bowel disease. 3. History of Crohn disease. 4. History of gastroesophageal reflux disease. 5. History of bowel resection. 6. History of hernia surgery. DISCHARGE DISPOSITION: The patient will be discharged in stable condition with guarded prognosis. HISTORY OF PRESENT ILLNESS: This 62-year-old woman with a past medical history of multiple medical problems admitted with symptomatic anemia. Hemoglobin was 4. Four units of transfusion were given. Hemoglobin improved to 8.7, stable. Patient is feeling much better. Dr. Trejo performed endoscopies as mentioned earlier. Biopsies are pending at this time. On exam, vitals are stable. CARDIOVASCULAR: S1 and S2 muffled. ABDOMEN: Soft. NERVOUS SYSTEM: No focal deficits. DISCHARGE ADVICE: 1. Diet is cardiac. 2. Activity limited until followup. 3. Follow up with Dr. Mendoza in 2 to 3 days. 4. Follow up with Dr. Trejo as advised. Medications will be: 1. Ceftin 500 mg p.o. b.i.d. for 6 days. 2. Antivert 25 mg t.i.d. p.r.n. 3. Multivitamins 1 p.o. daily. 4. Zofran 4 mg q.8 p.r.n. 5. Protonix 40 mg p.o. b.i.d. Follow-up labs on a periodic basis in the outpatient setting. Ceftin to finish the home dose. MMODL / IJN: [id number] /
== END 2017-09-02 16:49 | disposition home or self-care (01) | DRG 386 ==
LOC: EC 15:09 → 6SEL 17:36
PROVIDERS: ADMIT Hospitalist; ATTEND Hospitalist
PROC: 30233N1 Transfusion of Nonautologous Red Blood Cells into Peripheral Vein, Percutaneous Approach (ICD-10-PCS; 2017-08-31)
PROC: 0DB58ZX Excision of Esophagus, Via Natural or Artificial Opening Endoscopic, Diagnostic (ICD-10-PCS; 2017-09-02)
PROC: 0DBE8ZX Excision of Large Intestine, Via Natural or Artificial Opening Endoscopic, Diagnostic (ICD-10-PCS; 2017-09-02)
PROC: 0DB98ZX Excision of Duodenum, Via Natural or Artificial Opening Endoscopic, Diagnostic (ICD-10-PCS; principal; 2017-09-02 13:00)
PROC: 0DB68ZX Excision of Stomach, Via Natural or Artificial Opening Endoscopic, Diagnostic (ICD-10-PCS; 2017-09-02 13:00)
DX: K50.918 Crohn's disease, unspecified, with other complication (principal); D62 Acute posthemorrhagic anemia; K92.2 Gastrointestinal hemorrhage, unspecified; K21.9 Gastro-esophageal reflux disease without esophagitis; K29.60 Other gastritis without bleeding; K44.9 Diaphragmatic hernia without obstruction or gangrene; K57.30 Diverticulosis of large intestine without perforation or abscess without bleeding; R01.1 Cardiac murmur, unspecified; Z87.891 Personal history of nicotine dependence; Z90.710 Acquired absence of both cervix and uterus; Z90.49 Acquired absence of other specified parts of digestive tract
CPT/HCPCS: 36415; 43239; 45380; 74022; 80048; 80053; 82272; 82550; 82553; 82728; 83540; 83550; 83735; 84484; 85025; 85610; 85730; 86850; 86900; 86901; 86920; 88305; 93005; 96374; 99291

== ENCOUNTER → 2017-11-19 | Outpatient (CLI) | payer OTHER ==
[2017-11-19 17:34] LABS: Appearance,Urine Clear (Clear); Bilirubin,Urine Negative (Negative); Blood,Urine Moderate (Negative); Calcium Oxalate Crystals,Urine Occasional /hpf; Color,Urine Yellow; Glucose,Urine (UA) Negative (Negative); Hyaline Casts,Urine 1 /lpf (0-2); Ketones,Urine Negative (Negative); Leukocyte Esterase,Urine Moderate (Negative); Mucus,Urine Rare /hpf; Nitrite,Urine Negative (Negative); PH, Urine 6.5 (5.0-8.0); Protein,Urine Negative (Negative); RBC,Urine >182 /hpf (0-5); Specific Gravity,Urine 1.014 (1.001-1.035); Squamous Epithelial Cell,Urine <1 /hpf (0-4); Urobilinogen,Urine <2.0 mg/dL (<2.0); WBC,Urine 10 /hpf (0-5)
--- NOTE | 2017-11-20 08:54 | CT ---
EXAMINATION TYPE: CT abdomen pelvis wo/w con DATE OF EXAM: 11/19/2017 HISTORY: LLQ abd pain. CT DLP: 2180mGycm Automated Exposure Control for Dose Reduction was Utilized. CONTRAST: CT scan of the abdomen and pelvis is performed without and with IV Contrast, patient injected with 10 0ml mL of Isovue M300. COMPARISON: 12/21/2015. FINDINGS: LUNG BASES: No significant abnormality is appreciated. LIVER/GB: Gallbladder surgically absent. Too small to accurately characterize segment 7 5 mm hypoatte nuated hepatic lesion is identified.. PANCREAS: No significant abnormality is seen. SPLEEN: No significant abnormality is seen. ADRENALS: There is slight thickening of the left adrenal gland although it maintains a normal adrenif orm shape without discrete measurable nodule. Right adrenal gland is unremarkable. KIDNEYS: Right lower pole hyperdense 1.6 x 1.4 cm lesion is not appreciated on the prior exam of 2015 . This could represent a hyperdense hemorrhagic/proteinaceous renal cyst as there is no enhancement o n delayed imaging although ultrasound is recommended to ensure some increased through transmission. O ther right midpole renal cysts measure up to 1.4 cm. Within the left kidney there are 2 partial obstr ucting left renal pelvic calculi measuring 7 mm and 5 mm with blunting of the superior calyces and pe ripelvic subtle fat stranding. Additional nonobstructing calculi within the left mid pole and lower p ole are seen (3 in number) measuring up to 5 mm. There is a exophytic 8mm left renal cyst BOWEL: There is a moderate hiatal hernia containing residual or reflux contrast. There is long segmen t thickening of the distal ileum and terminal ileum extending from the pelvis on series 3 image 65 op portunity terminal ileum on series 3 image 46. Valvulae conniventes a are poorly defined within the d istal ileum. Scattered prominent right lower quadrant lymph nodes are also seen although nonenlarged. Additionally there is diffuse thickening of the sigmoid colon with surrounding vasa recta engorgement although no pericolonic fat stranding is seen. Other scattered colonic diverticula are noted. Mild b owel wall thickening is also appreciated of the hepatic flexure and transverse colon. Note is made of a fat filled small right inguinal hernia. Subcentimeter tiny fat filled umbilical hernia is also see n. LYMPH NODES: No greater than 1cm abdominal or pelvic lymph nodes are appreciated. OSSEOUS STRUCTURES: Mild multilevel degenerative changes of the visualized thoracolumbar spine are no anuel. IMPRESSION: 1. Findings suggesting chronic a recently resolved sigmoid diverticulitis as there is bowel wall thic kening and vasa recta engorgement without pericolonic fat stranding. 2. Multifocal bowel wall thickening within the hepatic flexure, transverse colon, and distal ileum in cluding the terminal ileum. Findings raise suspicion for inflammatory bowel disease although these fi ndings could also be infectious in etiology. 3. Moderate hiatal hernia with residual contrast that could relate to delayed propulsion or gastroeso phageal reflux. 4. Hyperdense right renal lesion with no appreciable enhancement although this was not present on the prior exam of 2016 and renal ultrasound is recommended to ensure some increased through transmission as this may represent a hemorrhagic/proteinaceous renal cyst or renal mass. 5. Partially obstructing left renal sinus calculi creating surrounding inflammatory fat stranding and minimal left-sided hydronephrosis. Additional nonobstructing calculi are seen on the left.
== END | disposition home or self-care (01) ==
LOC: RADCTMAIN 16:00
PROVIDERS: ATTEND Surgery
DX: N13.2 Hydronephrosis with renal and ureteral calculous obstruction (principal); K44.9 Diaphragmatic hernia without obstruction or gangrene; K21.9 Gastro-esophageal reflux disease without esophagitis; N28.9 Disorder of kidney and ureter, unspecified
CPT/HCPCS: 81001; 74178; Q9967

== ENCOUNTER → 2018-03-23 | Outpatient (CLI) | payer OTHER ==
[2018-03-23 09:52] LABS: Appearance,Urine Cloudy (Clear); Bilirubin,Urine Negative (Negative); Blood,Urine Small (Negative); Color,Urine Yellow; Glucose,Urine (UA) Negative (Negative); Ketones,Urine Negative (Negative); Leukocyte Esterase,Urine Large (Negative); Mucus,Urine Moderate /hpf; Nitrite,Urine Negative (Negative); PH, Urine 6.5 (5.0-8.0); Protein,Urine 1+ (Negative); RBC,Urine 25 /hpf (0-5); Specific Gravity,Urine 1.017 (1.001-1.035); Squamous Epithelial Cell,Urine 2 /hpf (0-4); Urobilinogen,Urine <2.0 mg/dL (<2.0); WBC,Urine 60 /hpf (0-5)
[2018-03-23 10:03] LABS: Anion Gap 5 mmol/L; Blood Urea Nitrogen 18 mg/dL (7-17); Calcium 9.5 mg/dL (8.4-10.2); Carbon Dioxide 29 mmol/L (22-30); Chloride 108 mmol/L (98-107); Glucose 90 mg/dL (74-99); Sodium 142 mmol/L (137-145)
[2018-03-23 10:15] LABS: Basophils % (A) 1 %; Eosinophils # (A) 0.2 k/uL (0-0.7); Eosinophils % (A) 5 %; HCT 39.1 % (34.0-46.0); HGB 12.1 gm/dL (11.4-16.0); Hypochromasia Slight; Lymphocytes % (A) 30 %; MCH 28.7 pg (25.0-35.0); MCV 92.4 fL (80.0-100.0); Mean Platelet Volume 6.3; Monocytes # (A) 0.3 k/uL (0-1.0); Monocytes % (A) 8 %; Neutrophils # (A) 1.8 k/uL (1.3-7.7); Neutrophils % (A) 55 %; Platelet Count 262 k/uL (150-450); RBC 4.23 m/uL (3.80-5.40); RDW 14.1 % (11.5-15.5); WBC 3.3 k/uL (3.8-10.6)
== END | disposition home or self-care (01) ==
LOC: LABPAT 09:06
PROVIDERS: ATTEND Urology
DX: Z01.812 Encounter for preprocedural laboratory examination (principal); N20.0 Calculus of kidney; R35.0 Frequency of micturition; R31.29 Other microscopic hematuria; Z51.81 Encounter for therapeutic drug level monitoring; Z79.01 Long term (current) use of anticoagulants
CPT/HCPCS: 36415; 80048; 81001; 85025; 86850; 86900; 86901; 87086

== ENCOUNTER 2018-03-31 06:19 | Observation (INO) | payer OTHER ==
[2018-03-25 13:16] VITALS: BMI 28.3
--- NOTE | 2018-03-30 19:31 | P.GSHP ---
History of Present Illness H&P Date: 03/30/18 The patient is a pleasant 62 yo female that comes for a pcnl left due to a large volume of kidney stones THe alternatives have been discussed. The risks and complications of a PCNL including infection, bleeding , pain , injury to the kidney or adjacent organs, transfusion, loss of kidney among others have been explained understood and accepted. - Constitutional Constitutional: Denies chills, Denies fever - Genitourinary (Female) Genitourinary: Reports as per HPI Past Medical History Past Medical History: Cancer, GERD/Reflux Additional Past Medical History / Comment(s): CROHNS, past cluster headaches, bronchitis,sinus, diverticulitis, skin cancer History of Any Multi-Drug Resistant Organisms: None Reported Past Surgical History: Adenoidectomy, Bowel Resection, Cholecystectomy, Hernia Repair, Hysterectomy, Tonsillectomy Additional Past Surgical History / Comment(s): COLONOSCOPY,per mph "cecum repair " done 20 years ago, abd. hernia repair with mesh Past Anesthesia/Blood Transfusion Reactions: Motion Sickness Smoking Status: Former smoker - Past Family History Father Family Medical History: Cancer Additional Family Medical History / Comment(s): lung Mother Family Medical History: Cancer Additional Family Medical History / Comment(s): brain Medications and Allergies Home Medications Medication Instructions Recorded Confirmed Type Multivitamins, Thera [Multivitamin 1 each PO DAILY@1200 #30 tab 09/02/17 Rx (formulary)] Acetaminophen [Tylenol Extra 500 mg PO DAILY PRN 03/25/18 03/25/18 History Strength] Ferrous Sulfate [Feosol] 325 mg PO DAILY 03/25/18 03/25/18 History Omeprazole [PriLOSEC] 20 mg PO AC-BRKFST 03/25/18 03/25/18 History Allergies Allergy/AdvReac Type Severity Reaction Status Date / Time No Known Allergies Allergy Verified 03/25/18 13:07 Surgical - Exam - General well developed, well nourished, no distress - Eyes PERRL - ENT no hearing loss - Neck trachea midline - Respiratory normal expansion, normal respiratory effort - Cardiovascular Rhythm: regular - Abdomen Abdomen: soft, non tender - Neurologic normal coordination, normal sensation - Musculoskeletal normal gait, normal posture - Psychiatric oriented to time, oriented to person, oriented to place, speech is normal, memory intact Results - Imaging CT scan - abdomen: report reviewed, image reviewed CT scan - pelvis: report reviewed, image reviewed Assessment and Plan Assessment: Impression: Left renal calculi large. Plan: PCNL left
[~2018-03-31 06:19] MED LIST changes: -LACTATED RINGERS 1,000 ML IV SCH; +ceFAZolin 1,000 MG in DEXTROSE/WATER 1 50ML.BAG IVPB ONE
[2018-03-31] MEDS ORDERED: MIDAZOLAM 2 MG/2 ML VIAL IV PRN (06:26)
[2018-03-31] MEDS ORDERED: ONDANSETRON 4 MG/2 ML VIAL IVP ONE (06:26)
[2018-03-31] MEDS ORDERED: SCOPOLAMINE 1.5MG/72HR PATCH TRANSDERM ONE (06:26)
[2018-03-31] MEDS ORDERED: LIDOCAINE 1% 20 ML VIAL (10MG/ML) FOR IV START INTRADERMA PRN (06:26)
[2018-03-31] MEDS ORDERED: DEXAMETHASONE SOD PHOSPHATE 10 MG/ML 1 ML VIAL IV ONE (06:26)
[2018-03-31] MEDS ORDERED: LIDOCAINE 1% 20 ML VIAL (10MG/ML) FOR IV START INTRADERMA ONE (07:10)
[2018-03-31] MEDS: LACTATED RINGERS 1,000 ML IV SCH (07:19)
--- NOTE | 2018-03-31 07:49 | XR ---
EXAMINATION TYPE: XR KUB DATE OF EXAM: 03/31/2018 6:43 AM CLINICAL HISTORY: Left-sided kidney stones. TECHNIQUE: Single supine KUB image of the abdomen is obtained. COMPARISON: CT abdomen and pelvis November 19, 2017 FINDINGS: There is redemonstration of 5-6 left-sided renal calculi with largest measuring 13 mm long axis centrally likely in the renal pelvis. This is perhaps slightly changed position from CT as is no w most superior position calculus. There is punctate 3 mm calculus lower pole level right kidney felt identified on radiograph correlating with CT. There are few pelvic phleboliths and left-sided vascul ar pelvic calcifications. Oval density right pelvis is presumed overlying or ingested nonbroken down pill. Cholecystectomy clips are redemonstrated. There is overall nonobstructive bowel gas pattern. Visualiz ed osseous structures are intact. IMPRESSION: Stable significant left-sided renal nephrolithiasis.
[2018-03-31] MEDS ORDERED: MIDAZOLAM 2 MG/2 ML VIAL ONE (08:26)
[2018-03-31] MEDS ORDERED: PROPOFOL 10 MG/ML 20 ML VIAL IV ONE (08:26)
[2018-03-31] MEDS ORDERED: fentaNYL (PF) 50 MCG/ML 2 ML AMP ONE (08:26)
[2018-03-31] MEDS ORDERED: ePHEDrine SULFATE/0.9% NACL/PF 50 MG/5 ML SYRINGE IV ONE (08:26)
[2018-03-31] MEDS ORDERED: SUCCINYLCHOLINE CHLORIDE 100 MG/5 ML SYR IV ONE (08:26)
[2018-03-31] MEDS ORDERED: LIDOCAINE 1% INJ 10MG/ML (20 ML MDV) ONE (08:26)
[2018-03-31] MEDS ORDERED: SODIUM CHLORIDE 0.9% IRRIGATION ONE ×2 (09:02)
[2018-03-31] MEDS ORDERED: IOHEXOL IRRIGATION ONE ×2 (09:02)
[2018-03-31] MEDS ORDERED: LACTATED RINGERS 1,000 ML IV ONE (09:53)
[2018-03-31] MEDS: HYDROmorphone 0.5 MG/0.5 ML SYRINGE IVP PRN ×4 (10:16→10:33)
[2018-03-31] MEDS ORDERED: ONDANSETRON 4 MG/2 ML VIAL IVP PRN (10:20)
[2018-03-31] MEDS ORDERED: ACETAMINOPHEN TAB 500 MG TAB PO PRN (10:20)
[2018-03-31] MEDS ORDERED: MAG HYDROX/AL HYDROX/SIMETH 30 ML CUP PO PRN (10:20)
[2018-03-31] MEDS ORDERED: HYDROmorphone PCA 5 MG/25 ML SYRINGE IV PRN (10:22)
[2018-03-31] MEDS ORDERED: NALOXONE 0.4 MG/ML 1 ML VIAL IV PRN (10:22)
--- NOTE | 2018-03-31 10:26 | P.OP ---
Date of Procedure: 03/31/18 Preoperative Diagnosis: Left renal stone, large Postoperative Diagnosis: Same Procedure(s) Performed: Cystoscopy, placement of occluding balloon catheter left, 5-Dutch, percutaneous nephrostomy (Dr. Wilson) percutaneous nephrostolithotomy at ultrasound, placement of 10 J nephrostomy Anesthesia: ROBERTH Surgeon: Timur Cohen Estimated Blood Loss (ml): 200 Pathology: other (Stone) Condition: stable Disposition: PACU Indications for Procedure: The patient is 62. She has large left renal calculi that are painful. She comes for percutaneous nephrostolithotomy. The stone volumes greater than 2 cm Description of Procedure: The patient is brought to the operating suite. She is given a successful general endotracheal anesthesia. She's placed in a frog position on the transport gurney with a sterile prep and drape. Cystoscopy with a Foroblique lens and 22-Dutch sheath identifies normal ureteral orifice. The left ureteral orifice is identified and intubated with a 5-Dutch occluding balloon catheter. It is secured to a 16-Dutch Thao. The patient's placed in prone position with care to airways and extremities. Dr. Maldonado of radiology performed percutaneous nephrostomy access to the left lower pole calyx. I then dilate the tract to 30-Dutch. Introduced the rigid scope into the collecting system and remove clot. We first identify lower pole calyceal stone which is removed with graspers it is about a centimeter. We then identify a large left renal pelvic stone that is origin requires ultrasonic lithotripsy. I then grasped the larger segments. Looked throughout the collecting system and do an intraoperative nephrostogram see no remaining calyceal stones. An Dutch J nephrostomy tube was placed. The patient is awake and returned recovery room good condition. Blood loss about 200 mL. She' ll be placed in the hospital postoperatively.
[2018-03-31] MEDS: KETOROLAC 30 MG/ML 1 ML VIAL IVP PRN ×3 (10:33→21:46)
[2018-03-31] MEDS ORDERED: fentaNYL (PF) 50 MCG/ML 2 ML AMP IVP ONE (10:35)
[2018-03-31] MEDS: DEXTROSE 5%-0.45% NACL 1,000 ML IV SCH ×2 (11:45→20:10)
[2018-03-31] MEDS: ACETAMINOPHEN TAB 325 MG TAB PO PRN ×2 (13:30→23:10)
--- NOTE | 2018-03-31 14:24 | FL ---
EXAMINATION TYPE: FL Perc Nephrostomy New Access DATE OF EXAM: 03/31/2018 COMPARISON: NONE HISTORY: Left renal stone. PROCEDURE: Maximal barrier technique was utilized. The skin overlying the left kidney was localized using fluor oscopy and the overlying skin prepped and draped. Lidocaine used for local anesthesia. Skin angel wa s made with a scalpel. Access was gained under fluoroscopy, following placement of a ureteral occlus ion balloon by the referring clinician and instillation of air in the renal collecting system with a 21-gauge needle to the kidney. A suitable posterior calyx was chosen. A 0.018 inch wire was advanc ed. The access site was dilated and subsequently a sheath was advanced into the renal pelvis followi ng dilation with balloon along the tract. Urine returned in the hub of the catheter. The patient unde rwent nephrolithotomy by the referring clinician. The patient remained in stable condition without complication. The patient was discharged to observation. 11 minutes 1 second fluoroscopy time, 1 int raoperative image obtained. IMPRESSION: STATUS POST NEPHROSTOMY PLACEMENT FOR NEPHROLITHOTOMY WITH FLUOROSCOPIC GUIDANCE. THIS PROCEDURE PER FORMED BY THE UNDERSIGNED.
[2018-04-01] MEDS: KETOROLAC 30 MG/ML 1 ML VIAL IVP PRN (04:09)
--- NOTE | 2018-04-01 06:27 | P.DS ---
Providers Date of admission: 04/01/18 00:15 Attending physician: Timur Cohen Primary care physician: [facility] Course: The patient was admitted to the hospital yesterday 03/31/2018 for a left percutaneous nephrostolithotomy of a large volume of kidney stones. These were removed using percutaneous access and ultrasound technique. She did well overnight. Her urine is cleared. Her nephrostomy urine is clear. She is not having pain other than what is required by Toradol. Her abdomen is soft. She is tolerating a regular diet. She'll be discharged home this morning. She'll go home with a nephrostomy tube. She will follow-up Thursday to have her nephrostomy tube removal. Postoperative instructions been given. She's given a prescription for Toradol. She will resume her home medications. She's been instructed and nephrostomy tube care. If she has any problem she'll contact us. Condition is good. Patient Condition at Discharge: Good Plan - Discharge Summary New Discharge Prescriptions: New Ketorolac [Toradol] 10 mg PO Q6HR PRN #20 tab PRN Reason: Pain No Action RX: Multivitamins, Thera [Multivitamin (formulary)] 1 each PO DAILY@1200 #30 tab Ferrous Sulfate [Feosol] 325 mg PO DAILY Omeprazole [PriLOSEC] 20 mg PO AC-BRKFST Acetaminophen [Tylenol Extra Strength] 500 mg PO DAILY PRN PRN Reason: Pain Discharge Medication List RX: Multivitamins, Thera [Multivitamin (formulary)] 1 each PO DAILY@1200 #30 tab 09/02/17 [Rx] Acetaminophen [Tylenol Extra Strength] 500 mg PO DAILY PRN 03/25/18 [History] Ferrous Sulfate [Feosol] 325 mg PO DAILY 03/25/18 [History] Omeprazole [PriLOSEC] 20 mg PO AC-BRKFST 03/25/18 [History] Ketorolac [Toradol] 10 mg PO Q6HR PRN #20 tab 04/01/18 [Rx] Follow up Appointment(s)/Referral(s): Timur Cohen MD [STAFF PHYSICIAN] - 04/05/18 Activity/Diet/Wound Care/Special Instructions: With nephrostomy tube, instructed may shower if she covers or changes the dressing
[2018-04-01] MEDS: DEXTROSE 5%-0.45% NACL 1,000 ML IV SCH (07:19)
[2018-04-01] MEDS ORDERED: PANTOPRAZOLE 40 MG TABLET PO SCH (07:30)
[2018-04-01] MEDS: LACTATED RINGERS 1,000 ML IV SCH (08:32)
[2018-04-01 09:09] VITALS: BP 147/68; PULSE 67; RESP 20; TEMP 97.6
== END 2018-04-01 10:16 | disposition home or self-care (01) ==
LOC: OR 06:19 → 6PED 11:19 → OR 04-01 00:14 → 6PED 04-01 00:15
PROVIDERS: ADMIT Urology; ATTEND Urology
DX: N20.0 Calculus of kidney (principal); K21.9 Gastro-esophageal reflux disease without esophagitis; K50.90 Crohn's disease, unspecified, without complications; Z85.828 Personal history of other malignant neoplasm of skin; Z90.49 Acquired absence of other specified parts of digestive tract; Z90.710 Acquired absence of both cervix and uterus; F17.210 Nicotine dependence, cigarettes, uncomplicated; Z79.899 Other long term (current) drug therapy
CPT/HCPCS: 96374; 96375; 82365; 50432; 74018; G0378; C1769 ×4; C2628; C1894; C1729; J2250; J1100; J2405; J2001; J3010; J1885 ×2; J0690; J0330; J2704; Q9967; J1170

== ENCOUNTER 2018-09-02 06:09 | Inpatient (IN) | payer OTHER ==
[2018-09-02] MEDS ORDERED: SODIUM CHLORIDE 0.9% 500 ML 500 ML IV STA (06:24)
[2018-09-02] MEDS ORDERED: MORPHINE SULFATE 4 MG/ML SYRINGE IV STA (06:24)
[2018-09-02 06:39] LABS: Basophils % (A) 0 %; Eosinophils # (A) 0.2 k/uL (0-0.7); Eosinophils % (A) 2 %; HCT 39.8 % (34.0-46.0); HGB 12.5 gm/dL (11.4-16.0); Hypochromasia Slight; Lymphocytes # (A) 0.4 k/uL (1.0-4.8); Lymphocytes % (A) 3 %; MCH 27.8 pg (25.0-35.0); MCHC 31.3 g/dL (31.0-37.0); MCV 88.7 fL (80.0-100.0); Mean Platelet Volume 6.7; Monocytes # (A) 0.2 k/uL (0-1.0); Monocytes % (A) 2 %; Neutrophils # (A) 9.9 k/uL (1.3-7.7); Neutrophils % (A) 93 %; Platelet Count 322 k/uL (150-450); RBC 4.48 m/uL (3.80-5.40); WBC 10.7 k/uL (3.8-10.6)
[2018-09-02 06:47] LABS: Amorphous Sediment,Urine Rare /hpf; Appearance,Urine Cloudy (Clear); Bacteria,Urine Rare /hpf; Bilirubin,Urine Negative (Negative); Blood,Urine Trace (Negative); Color,Urine Yellow; Glucose,Urine (UA) Negative (Negative); Ketones,Urine 1+ (Negative); Leukocyte Esterase,Urine Small (Negative); Mucus,Urine Many /hpf; Nitrite,Urine Negative (Negative); Protein,Urine 1+ (Negative); RBC,Urine 12 /hpf (0-5); Specific Gravity,Urine 1.017 (1.001-1.035); Urobilinogen,Urine <2.0 mg/dL (<2.0); WBC,Urine 5 /hpf (0-5)
[2018-09-02 06:48] LABS: ALT 29 U/L (9-52); AST 28 U/L (14-36); Albumin 4.3 g/dL (3.5-5.0); Alkaline Phosphatase 122 U/L (38-126); Amylase 61 U/L (30-110); Anion Gap 8 mmol/L; Blood Urea Nitrogen 22 mg/dL (7-17); Calcium 9.9 mg/dL (8.4-10.2); Carbon Dioxide 23 mmol/L (22-30); Chloride 109 mmol/L (98-107); Glucose 159 mg/dL (74-99); Lipase 96 U/L (23-300); Potassium 4.3 mmol/L (3.5-5.1); Sodium 140 mmol/L (137-145); Total Bilirubin 0.6 mg/dL (0.2-1.3); Total Protein 7.3 g/dL (6.3-8.2)
[2018-09-02] MEDS ORDERED: HYDROmorphone 1 MG/ML 1 ML SYRINGE IVP STA (07:11)
[2018-09-02] MEDS ORDERED: ONDANSETRON 4 MG/2 ML VIAL IVP STA (07:11)
[2018-09-02 07:13] LABS: C Reactive Protein 11.3 mg/L (<10.0)
--- NOTE | 2018-09-02 07:15 | ED ---
General Adult HPI - General Chief complaint: Abdominal Pain Stated complaint: Abdominal Pain Time Seen by Provider: 09/02/18 07:00 Source: patient, EMS, RN notes reviewed Mode of arrival: EMS Limitations: no limitations - History of Present Illness Initial comments: This is a 63-year-old female presents emergency Department with a past medical history significant for Crohn's disease acid reflux and a cholecystectomy appendectomy hysterectomy. Patient states she started having abdominal pain this afternoon is worsening epigastric region. Patient states she's been nauseated and vomiting. Patient states she's also had diarrhea. Patient states this does not feel typical of her Crohn's pain. Patient denies any fever chills per patient denies any chest pain difficulty breathing shortness of breath. Patient denies any black or bloody stools or any black or bloody vomitus. Patient denies any back pain. Patient denies any dysuria hematuria urinary frequency. Patient denies any leg swelling or calf tenderness. - Related Data Home Medications Medication Instructions Recorded Confirmed Omeprazole [PriLOSEC] 20 mg PO BID PRN 03/25/18 09/02/18 Multivitamins, Thera [Multivitamin 1 tab PO DAILY 09/02/18 09/02/18 (formulary)] Vitamin B Complex 1 cap PO DAILY 09/02/18 09/02/18 Allergies Allergy/AdvReac Type Severity Reaction Status Date / Time No Known Allergies Allergy Verified 09/02/18 06:51 Review of Systems ROS Statement: Those systems with pertinent positive or pertinent negative responses have been documented in the HPI. ROS Other: All systems not noted in ROS Statement are negative. Past Medical History Past Medical History: Cancer, GERD/Reflux Additional Past Medical History / Comment(s): CROHNS, past cluster headaches, bronchitis,sinus, diverticulitis, skin cancer History of Any Multi-Drug Resistant Organisms: None Reported Past Surgical History: Adenoidectomy, Bowel Resection, Cholecystectomy, Hernia Repair, Hysterectomy, Tonsillectomy Additional Past Surgical History / Comment(s): COLONOSCOPY,per mph "cecum repair " done 20 years ago, abd. hernia repair with mesh Past Anesthesia/Blood Transfusion Reactions: Motion Sickness Past Psychological History: No Psychological Hx Reported Smoking Status: Current every day smoker - Past Family History Father Family Medical History: Cancer Additional Family Medical History / Comment(s): lung Mother Family Medical History: Cancer Additional Family Medical History / Comment(s): brain General Exam - General Exam Comments Initial Comments: nGENERAL: Patient is well-developed and well-nourished. Patient is nontoxic and well- hydrated and is in moderate distress. ENT: Neck is soft and supple. No significant lymphadenopathy is noted. Oropharynx is clear. Moist mucous membranes. Neck has full range of motion without eliciting any pain. EYES: The sclera were anicteric and conjunctiva were pink and moist. Extraocular movements were intact and pupils were equal round and reactive to light. Eyelids were unremarkable. PULMONARY: Unlabored respirations. Good breath sounds bilaterally. No audible rales rhonchi or wheezing was noted. CARDIOVASCULAR: There is a regular rate and rhythm without any murmurs gallops or rubs. ABDOMEN: Patient has diffuse abdominal pain. Patient has some rebound tenderness in the left side. SKIN: Skin is clear with no lesions or rashes and otherwise unremarkable. NEUROLOGIC: Patient is alert and oriented x3. Cranial nerves II through XII are grossly intact. Motor and sensory are also intact. Normal speech, volume and content. Symmetrical smile. MUSCULOSKELETAL: Normal extremities with adequate strength and full range of motion. No lower extremity swelling or edema. No calf tenderness. LYMPHATICS: No significant lymphadenopathy is noted PSYCHIATRIC: Normal psychiatric evaluation. Limitations: no limitations Course Vital Signs 09/02/18 09/02/18 09/02/18 06:10 07:24 07:25 Temperature 99.4 F Pulse Rate 91 72 72 Respiratory 16 16 19 Rate Blood Pressure 149/76 134/76 134/76 O2 Sat by Pulse 95 99 99 Oximetry 09/02/18 07:28 Temperature 97.8 F Pulse Rate Respiratory Rate Blood Pressure O2 Sat by Pulse Oximetry Medical Decision Making - Medical Decision Making Computed tomography scan shows ileitis or possible Crohn's. Patient states she was diagnosed Crohn's for years ago but hasn't taken anything in decades. I spoke with [facility] hospitalist agreed to admit the patient admitted the patient I consulted GI. - Lab Data Result diagrams: 09/02/18 06:25 09/02/18 06:25 Lab Results 09/02/18 09/02/18 09/02/18 Range/Units 06:25 06:25 06:36 WBC 10.7 H (3.8-10.6) k/uL RBC 4.48 (3.80-5.40) m/uL Hgb 12.5 (11.4-16.0) gm/dL Hct 39.8 (34.0-46.0) % MCV 88.7 (80.0-100.0) fL MCH 27.8 (25.0-35.0) pg MCHC 31.3 (31.0-37.0) g/dL RDW 14.0 (11.5-15.5) % Plt Count 322 (150-450) k/uL Neutrophils % 93 % Lymphocytes % 3 % Monocytes % 2 % Eosinophils % 2 % Basophils % 0 % Neutrophils # 9.9 H (1.3-7.7) k/uL Lymphocytes # 0.4 L (1.0-4.8) k/uL Monocytes # 0.2 (0-1.0) k/uL Eosinophils # 0.2 (0-0.7) k/uL Basophils # 0.0 (0-0.2) k/uL Hypochromasia Slight Sodium 140 (137-145) mmol/L Potassium 4.3 (3.5-5.1) mmol/L Chloride 109 H (98-107) mmol/L Carbon Dioxide 23 (22-30) mmol/L Anion Gap 8 mmol/L BUN 22 H (7-17) mg/dL Creatinine 0.79 (0.52-1.04) mg/dL Est GFR (CKD-EPI)AfAm >90 (>60 ml/min/1.73 sqM) Est GFR (CKD-EPI)NonAf 81 (>60 ml/min/1.73 sqM) Glucose 159 H (74-99) mg/dL Calcium 9.9 (8.4-10.2) mg/dL Total Bilirubin 0.6 (0.2-1.3) mg/dL AST 28 (14-36) U/L ALT 29 (9-52) U/L Alkaline Phosphatase 122 (38-126) U/L C-Reactive Protein 11.3 H (<10.0) mg/L Total Protein 7.3 (6.3-8.2) g/dL Albumin 4.3 (3.5-5.0) g/dL Amylase 61 (30-110) U/L Lipase 96 (23-300) U/L Urine Color Yellow Urine Appearance Cloudy H (Clear) Urine pH 7.0 (5.0-8.0) Ur Specific [place] 1.017 (1.001-1.035) Urine Protein 1+ H (Negative) Urine Glucose (UA) Negative (Negative) Urine Ketones 1+ H (Negative) Urine Blood Trace H (Negative) Urine Nitrite Negative (Negative) Urine Bilirubin Negative (Negative) Urine Urobilinogen <2.0 (<2.0) mg/dL Ur Leukocyte Esterase Small H (Negative) Urine RBC 12 H (0-5) /hpf Urine WBC 5 (0-5) /hpf Amorphous Sediment Rare H (None) /hpf Urine Bacteria Rare H (None) /hpf Urine Mucus Many H (None) /hpf Disposition Clinical Impression: Ileitis, History of Crohn's disease Disposition: ADMITTED IP TO THIS [facility] Referrals: Avelino Mendoza MD [Primary Care Provider] - 1-2 days Time of Disposition: 08:45
--- NOTE | 2018-09-02 08:33 | CT ---
EXAMINATION TYPE: CT abdomen pelvis w con DATE OF EXAM: 09/02/2018 COMPARISON: 11/19/2017 HISTORY: Abdominal pain CT DLP: 1143 mGycm CONTRAST: CT scan of the abdomen and pelvis is performed without Oral Contrast and with IV Contrast, patient in jected with 100 mL of Isovue 300. FINDINGS: LUNG BASES-: No visible nodule. No infiltrate. Moderate fixed hiatal hernia. LIVER/GB: Cholecystectomy clips noted. No space occupying hepatic lesion. Biliary tree is of sincere l caliber. PANCREAS: No inflammation. No distinct mass. SPLEEN: No splenic enlargement. No lesion seen. ADRENALS: No nodule. No thickening. KIDNEYS/BLADDER: No hydronephrosis. Nonobstructing left-sided nephrolithiasis. Renal cystic changes noted. No distinct solid renal mass. Urinary bladder grossly unremarkable. BOWEL: Dilated small bowel measuring up to 3.3 cm with caliber change noted within the distal ileum. Distal ileum demonstrates wall thickening which may reflect ileitis or Crohn's disease. GENITAL ORGANS: No gross abnormality. LYMPH NODES: No greater than 1cm abdominal or pelvic lymph nodes are appreciated. AORTA: No significant abnormality. OSSEOUS STRUCTURES: No significant abnormality is seen. OTHER: No significant additional abnormality is seen. IMPRESSION: 1. Dilated small bowel measuring up to 3.3 cm with caliber change noted within the distal ileum. Dist al ileum demonstrates wall thickening which may reflect ileitis or Crohn's disease.
[2018-09-02] MEDS ORDERED: SODIUM CHLORIDE 0.9% 1,000 ML IV ONE (08:45)
[2018-09-02] MEDS: HYDROmorphone 0.5 MG/0.5 ML SYRINGE IVP PRN ×2 (08:57→12:51)
[2018-09-02] MEDS: ONDANSETRON 4 MG/2 ML VIAL IVP PRN ×3 (08:57→22:08)
[2018-09-02 10:35] VITALS: BMI 30.9
[2018-09-02] MEDS ORDERED: HYDROmorphone 0.5 MG/0.5 ML SYRINGE IVP STA ×3 (13:30→16:02)
--- NOTE | 2018-09-02 16:11 | P.HPIM ---
History of Present Illness This is a pleasant 63 years old female with past medical history of GERD, Crohn' s disease, diverticulitis, cluster headache, kidney stones, who presents because of abdominal pain in the right middle abdomen close to the umbilicus., Feels like burning, dull quite severe of 1-2 days's duration, associated with frequent nausea vomiting, patient vomited about 10 times. She had loose bowel movement twice last night last one was earlier this morning at 5:00. Since then she is passing gases. Vitas looks stable, mild leukocytosis at 10.7 K. Rest of CBC and CMP were unremarkable. Liver enzymes not elevated. She has CT of the abdomen and pelvis with contrast: Dilated small bowel, with caliber change within the ileum , and there is distal ileum wall thickening suspicious for ileitis or Crohn's disease. Review of Systems CONSTITUTIONAL: No fever, no malaise, no fatigue. HEENT: No recent visual problems or hearing problems. Denied any sore throat. CARDIOVASCULAR: No orthopnea, PND, no palpitations, no syncope. PULMONARY: No shortness of breath, no cough, no hemoptysis. GASTROINTESTINAL: No diarrhea, no nausea, no vomiting, no abdominal pain. Normoactive bowel sounds. NEUROLOGICAL: No headaches, no weakness, no numbness. HEMATOLOGICAL: Denies any bleeding or petechiae. GENITOURINARY: Denies any burning micturition, frequency, or urgency. MUSCULOSKELETAL/RHEUMATOLOGICAL: Denies any joint pain, swelling, or any muscle pain. ENDOCRINE: Denies any polyuria or polydipsia. Past Medical History Past Medical History: Cancer, GERD/Reflux, Renal Disease Additional Past Medical History / Comment(s): Chron's, diverticulitis, cluster headaches, bronchitis, sinus problems, nephrolithiasis with surgery, skin cancer with removal, anemia. History of Any Multi-Drug Resistant Organisms: None Reported Past Surgical History: Adenoidectomy, Appendectomy, Bowel Resection, Cholecystectomy, Heart Catheterization, Hernia Repair, Hysterectomy, Tonsillectomy Additional Past Surgical History / Comment(s): Colonoscopies, EGD, cecum repair , L percutaneous nephrostolithotomy/cystoscopy, abdominal hernia repair with mesh, R foot fracture d/t fracture, skin cancer removals. Past Anesthesia/Blood Transfusion Reactions: Motion Sickness Additional Past Anesthesia/Blood Transfusion Reaction / Comment(s): Pt has received blood in past without reaction. Past Psychological History: No Psychological Hx Reported Additional Psychological History / Comment(s): Pt resides with her spouse. She is independent. She states she recently retired. Smoking Status: Current some day smoker Past Alcohol Use History: Occasional Additional Past Alcohol Use History / Comment(s): Pt states she has smoked on and off since 1982. When she smokes it is not frequent and it is very lightly. She last smoked 3 months ago. Past Drug Use History: None Reported - Past Family History Father Family Medical History: Cancer Additional Family Medical History / Comment(s): lung Mother Family Medical History: Cancer Additional Family Medical History / Comment(s): brain Medications and Allergies Home Medications Medication Instructions Recorded Confirmed Type Omeprazole [PriLOSEC] 20 mg PO BID PRN 03/25/18 09/02/18 History Multivitamins, Thera [Multivitamin 1 tab PO DAILY 09/02/18 09/02/18 History (formulary)] Vitamin B Complex 1 cap PO DAILY 09/02/18 09/02/18 History Allergies Allergy/AdvReac Type Severity Reaction Status Date / Time No Known Allergies Allergy Verified 09/02/18 06:51 Physical Exam Vitals: Vital Signs Temp Pulse Pulse Resp BP BP Pulse Ox 09/02/18 12:52 98.1 F 96 18 166/94 96 09/02/18 09:55 98.1 F 96 24 166/90 96 09/02/18 09:17 97.9 F 85 16 168/85 95 09/02/18 07:28 97.8 F 09/02/18 07:25 72 19 134/76 99 09/02/18 07:24 72 16 134/76 99 09/02/18 06:10 99.4 F 91 16 149/76 95 Intake and Output 09/02/18 09/02/18 09/02/18 06:59 14:59 22:59 Output Total 250 Balance -250 Output: Urine 200 Emesis 50 Other: Weight 79.379 kg GENERAL: The patient is alert and oriented x3, not in any acute distress. Well developed, well nourished. HEENT: Pupils are round and equally reacting to light. EOMI. No scleral icterus. No conjunctival pallor. Normocephalic, atraumatic. No pharyngeal erythema. No thyromegaly. CARDIOVASCULAR: S1 and S2 present. No murmurs, rubs, or gallops. PULMONARY: Chest is clear to auscultation, no wheezing or crackles. -ABDOMEN: Soft, right periumbilical tenderness, no rebound tenderness or guarding nondistended, normoactive bowel sounds. No palpable organomegaly. MUSCULOSKELETAL: No joint swelling or deformity. EXTREMITIES: No cyanosis, clubbing, or pedal edema. NEUROLOGICAL: Gross neurological examination did not reveal any focal deficits. SKIN: No rashes. Results CBC & Chem 7: 09/02/18 06:25 09/02/18 06:25 Labs: Abnormal Lab Results - Last 24 Hours (Table) 09/02/18 09/02/18 09/02/18 Range/Units 06:25 06:25 06:36 WBC 10.7 H (3.8-10.6) k/uL Neutrophils # 9.9 H (1.3-7.7) k/uL Lymphocytes # 0.4 L (1.0-4.8) k/uL Chloride 109 H (98-107) mmol/L BUN 22 H (7-17) mg/dL Glucose 159 H (74-99) mg/dL C-Reactive Protein 11.3 H (<10.0) mg/L Urine Appearance Cloudy H (Clear) Urine Protein 1+ H (Negative) Urine Ketones 1+ H (Negative) Urine Blood Trace H (Negative) Ur Leukocyte Esterase Small H (Negative) Urine RBC 12 H (0-5) /hpf Amorphous Sediment Rare H (None) /hpf Urine Bacteria Rare H (None) /hpf Urine Mucus Many H (None) /hpf Thrombosis Risk Factor Assmnt - Choose All That Apply Each Factor Represents 1 point: Obesity (BMI >25) Other Risk Factors: Yes Each Risk Factor Represents 2 Points: Age 61-74 years Other congenital or acquired thrombophilia - If yes, enter type in comment: No Thrombosis Risk Factor Assessment Total Risk Factor Score: 3 Thrombosis Risk Factor Assessment Level: Moderate Risk Assessment and Plan Assessment: Neurologic small bowel, rule out bowel obstruction ileitis versus acute Crohn's disease exacerbation History of GERD History of diverticulitis History of cluster headache History of nephrolithiasis Plan: This is a pleasant 63 years old female who presents with ileitis and dilated small bowel. We'll continue with IV hydration, keep nothing by mouth, start antibiotics. Also consult gastroenterology and general surgery. Start pt on zosyn , GI and DVT prophylaxis, we'll keep monitoring the patient. Further recommendation based on the clinical course of her disease. DVT prophylaxis: Heparin GI prophylaxis Protonix Prognosis is guarded
[2018-09-02] MEDS: PANTOPRAZOLE 40 MG/10 ML VIAL IVP SCH (16:28)
[2018-09-02] MEDS: DEXTROSE 5%-0.9% NACL 1,000 ML IV SCH (16:29)
[2018-09-02] MEDS: PIPERACILLIN-TAZOBACTAM 3.375 GM in SODIUM CHLORIDE 0.9% 100 ML IVPB SCH (17:46)
--- NOTE | 2018-09-02 18:13 | P.GSCN ---
History of Present Illness Consult date: 09/02/18 Reason for Consult: Abdominal pain History of present illness: The patient is a 63-year-old female that presented to the emergency this morning with abdominal pain. The pain started yesterday. She noticed a lot of bloating in the abdomen yesterday evening. She went to get dressed for a on the clothing was very tight across drain abdomen. Today the pain worsened and she had frequent vomiting along with diarrhea and a couple of episodes of fecal incontinence. She does have known Crohn's disease. Currently not on any medication for the Crohn's. Denies blood in the stool or dark tarry stool. Denies weight loss. Denies fevers, she may have had some chills. Feeling better this evening. Last colonoscopy was done in August 2017. At that time the terminal ileum was not intubated. In 2016 a colonoscopy also was performed, the terminal ileum was not intubated at that time. Review of Systems All systems: negative Past Medical History Past Medical History: Cancer, GERD/Reflux, Renal Disease Additional Past Medical History / Comment(s): Chron's, diverticulitis, cluster headaches, bronchitis, sinus problems, nephrolithiasis with surgery, skin cancer with removal, anemia. History of Any Multi-Drug Resistant Organisms: None Reported Past Surgical History: Adenoidectomy, Appendectomy, Bowel Resection, Cholecystectomy, Heart Catheterization, Hernia Repair, Hysterectomy, Tonsillectomy Additional Past Surgical History / Comment(s): Colonoscopies, EGD, cecum repair , L percutaneous nephrostolithotomy/cystoscopy, abdominal hernia repair with mesh, R foot fracture d/t fracture, skin cancer removals. Past Anesthesia/Blood Transfusion Reactions: Motion Sickness Additional Past Anesthesia/Blood Transfusion Reaction / Comm: Pt has received blood in past without reaction. Past Psychological History: No Psychological Hx Reported Additional Psychological History / Comment(s): Pt resides with her spouse. She is independent. She states she recently retired. Smoking Status: Current some day smoker Past Alcohol Use History: Occasional Additional Past Alcohol Use History / Comment(s): Pt states she has smoked on and off since 1982. When she smokes it is not frequent and it is very lightly. She last smoked 3 months ago. Past Drug Use History: None Reported - Past Family History Father Family Medical History: Cancer Additional Family Medical History / Comment(s): lung Mother Family Medical History: Cancer Additional Family Medical History / Comment(s): brain Medications and Allergies Home Medications Medication Instructions Recorded Confirmed Type Omeprazole [PriLOSEC] 20 mg PO BID PRN 03/25/18 09/02/18 History Multivitamins, Thera [Multivitamin 1 tab PO DAILY 09/02/18 09/02/18 History (formulary)] Vitamin B Complex 1 cap PO DAILY 09/02/18 09/02/18 History Allergies Allergy/AdvReac Type Severity Reaction Status Date / Time No Known Allergies Allergy Verified 09/02/18 06:51 Surgical - Exam Osteopathic Statement: *. No significant issues noted on an osteopathic structural exam other than those noted in the History and Physical/Consult. Vital Signs Temp Pulse Resp BP Pulse Ox 99.4 F 91 16 149/76 95 09/02/18 06:10 09/02/18 06:10 09/02/18 06:10 09/02/18 06:10 09/02/18 06:10 - General well developed, well nourished, no distress - Eyes normal ocular movement - Neck trachea midline, no lymphadectomy - Respiratory normal expansion, normal respiratory effort, clear to auscultation - Cardiovascular Rhythm: regular - Abdomen Abdomen: soft, tender (Mild diffuse tenderness), bowel sounds, no guarding, no rebound, distended - Psychiatric oriented to time, oriented to person, oriented to place, speech is normal, memory intact Results - Labs 09/02/18 06:25 09/02/18 06:25 Abnormal Lab Results - Last 24 Hours (Table) 09/02/18 09/02/18 09/02/18 Range/Units 06:25 06:25 06:36 WBC 10.7 H (3.8-10.6) k/uL Neutrophils # 9.9 H (1.3-7.7) k/uL Lymphocytes # 0.4 L (1.0-4.8) k/uL Chloride 109 H (98-107) mmol/L BUN 22 H (7-17) mg/dL Glucose 159 H (74-99) mg/dL C-Reactive Protein 11.3 H (<10.0) mg/L Urine Appearance Cloudy H (Clear) Urine Protein 1+ H (Negative) Urine Ketones 1+ H (Negative) Urine Blood Trace H (Negative) Ur Leukocyte Esterase Small H (Negative) Urine RBC 12 H (0-5) /hpf Amorphous Sediment Rare H (None) /hpf Urine Bacteria Rare H (None) /hpf Urine Mucus Many H (None) /hpf Diabetes panel 09/02/18 Range/Units 06:25 Sodium 140 (137-145) mmol/L Potassium 4.3 (3.5-5.1) mmol/L Chloride 109 H (98-107) mmol/L Carbon Dioxide 23 (22-30) mmol/L BUN 22 H (7-17) mg/dL Creatinine 0.79 (0.52-1.04) mg/dL Glucose 159 H (74-99) mg/dL Calcium 9.9 (8.4-10.2) mg/dL AST 28 (14-36) U/L ALT 29 (9-52) U/L Alkaline Phosphatase 122 (38-126) U/L Total Protein 7.3 (6.3-8.2) g/dL Albumin 4.3 (3.5-5.0) g/dL Calcium panel 09/02/18 Range/Units 06:25 Calcium 9.9 (8.4-10.2) mg/dL Albumin 4.3 (3.5-5.0) g/dL Pituitary panel 09/02/18 Range/Units 06:25 Sodium 140 (137-145) mmol/L Potassium 4.3 (3.5-5.1) mmol/L Chloride 109 H (98-107) mmol/L Carbon Dioxide 23 (22-30) mmol/L BUN 22 H (7-17) mg/dL Creatinine 0.79 (0.52-1.04) mg/dL Glucose 159 H (74-99) mg/dL Calcium 9.9 (8.4-10.2) mg/dL Adrenal panel 09/02/18 Range/Units 06:25 Sodium 140 (137-145) mmol/L Potassium 4.3 (3.5-5.1) mmol/L Chloride 109 H (98-107) mmol/L Carbon Dioxide 23 (22-30) mmol/L BUN 22 H (7-17) mg/dL Creatinine 0.79 (0.52-1.04) mg/dL Glucose 159 H (74-99) mg/dL Calcium 9.9 (8.4-10.2) mg/dL Total Bilirubin 0.6 (0.2-1.3) mg/dL AST 28 (14-36) U/L ALT 29 (9-52) U/L Alkaline Phosphatase 122 (38-126) U/L Total Protein 7.3 (6.3-8.2) g/dL Albumin 4.3 (3.5-5.0) g/dL - Imaging CT scan - abdomen: report reviewed, image reviewed (I also reviewed the CT from November 2017. The current CT shows a long segment of significant swelling in the terminal ileum along with fluid-filled, dilated loops of small bowel proximally. She has a large hiatal hernia and there is some of the stomach in the thoracic position containing fluid. Prior CT had minimal changes in the terminal ileum. Current CT looks significantly different.) Assessment and Plan (1) Crohns disease Current Visit: Yes Status: Acute Code(s): K50.90 - CROHN'S DISEASE, UNSPECIFIED, WITHOUT COMPLICATIONS SNOMED Code(s): 58626518 (2) Abdominal pain Current Visit: No Status: Acute Code(s): R10.9 - UNSPECIFIED ABDOMINAL PAIN SNOMED Code(s): 44321194 Plan: This appears to be an acute exacerbation of Crohn's disease. There is significant change in the CT from November 2017. I recommend she be made nothing by mouth. If she has persistent vomiting a NG tube can be placed. GI consultation. Antibiotics. Possibly steroids, that will be determined by GI. I'll follow with you but this will likely respond to medical therapy. Further recommendations to follow.
[2018-09-02] MEDS: HYDROmorphone 1 MG/ML 1 ML SYRINGE IVP PRN ×2 (18:43→22:08)
--- NOTE | 2018-09-02 19:29 | P.CONS ---
History of Present Illness - Reason for Consult Consult date: 09/02/18 Abdominal pain, history Crohn's Requesting physician: Sammy E Sheet - Chief Complaint Abdominal pain, nausea and vomiting - History of Present Illness Patient is a pleasant 63-year-old female with a medical history significant for nephrolithiasis, diverticulitis and Crohn's disease who presented to the hospital with complaints of abdominal pain, nausea and vomiting. The patient reports that the symptoms had been present for approximately 24 hours prior to presentation. She reports waking up feeling pain in her abdomen. She reports the pain is periumbilical and sharp in nature. No radiation of pain. The patient reports approximately 10 episodes of vomiting in association with the pain. She reports bringing up yellow vomitus with no hematemesis or coffee- ground emesis. The patient reports a history of Crohn's disease since she was 16 years well. She denies any prior steroid therapy. She reports requiring surgery approximately 37 years ago after the of her child when her disease flared. She denies bowel resection at that time and reports that the surgery was for repair. She reports at baseline she does not take any medications for her Crohn's disease. She denies any complications with fistulas or abscess in the past. She reports that at baseline she will have 2 nonbloody bowel movements daily with no chronic pain. She reports episodes of loose stool every few months which she reports was normal. Her last colonoscopy was in 2018 and the terminal ileum was not intubated at that time. She reports her last EGD was approximately 10 years ago. The patient was seen and evaluated in her room. She reports that her last bowel movement was today at 10 AM and she has had no further flatus or bowel movement since that time. The patient has further episodes of vomiting during her interview. Review of Systems REVIEW OF SYSTEMS: CONSTITUTIONAL: Denies any fevers, chills, weight change or fatigue. CARDIOVASCULAR: Denies any chest pain, palpitations high or low blood pressures RESPIRATORY: Denies any shortness of breath, hemoptysis or cough. GENITOURINARY: No dysuria or hematuria. MUSCULOSKELETAL: No weakness reported. SKIN: Denies any new rashes or lesions, jaundice or pallor. PSYCHIATRIC: Denies any depression or anxiety. NEUROLOGY: Denies headache, denies any new focal deficits. EARS/NOSE/THROAT: No recent hearing change, congestion, nasal discharge or sore throat. EYES: No pain in eyes, discharge or change in vision. GASTROINTESTINAL: As per HPI. Past Medical History Past Medical History: Cancer, GERD/Reflux, Renal Disease Additional Past Medical History / Comment(s): Chron's, diverticulitis, cluster headaches, bronchitis, sinus problems, nephrolithiasis with surgery, skin cancer with removal, anemia. History of Any Multi-Drug Resistant Organisms: None Reported Past Surgical History: Adenoidectomy, Appendectomy, Bowel Resection, Cholecystectomy, Heart Catheterization, Hernia Repair, Hysterectomy, Tonsillectomy Additional Past Surgical History / Comment(s): Colonoscopies, EGD, cecum repair , L percutaneous nephrostolithotomy/cystoscopy, abdominal hernia repair with mesh, R foot fracture d/t fracture, skin cancer removals. Past Anesthesia/Blood Transfusion Reactions: Motion Sickness Additional Past Anesthesia/Blood Transfusion Reaction / Comm: Pt has received blood in past without reaction. Past Psychological History: No Psychological Hx Reported Additional Psychological History / Comment(s): Pt resides with her spouse. She is independent. She states she recently retired. Smoking Status: Current some day smoker Past Alcohol Use History: Occasional Additional Past Alcohol Use History / Comment(s): Pt states she has smoked on and off since 1982. When she smokes it is not frequent and it is very lightly. She last smoked 3 months ago. Past Drug Use History: None Reported - Past Family History Father Family Medical History: Cancer Additional Family Medical History / Comment(s): lung Mother Family Medical History: Cancer Additional Family Medical History / Comment(s): brain Medications and Allergies Home Medications Medication Instructions Recorded Confirmed Type Omeprazole [PriLOSEC] 20 mg PO BID PRN 03/25/18 09/02/18 History Multivitamins, Thera [Multivitamin 1 tab PO DAILY 09/02/18 09/02/18 History (formulary)] Vitamin B Complex 1 cap PO DAILY 09/02/18 09/02/18 History Allergies Allergy/AdvReac Type Severity Reaction Status Date / Time No Known Allergies Allergy Verified 09/02/18 06:51 Physical Exam Vitals: Vital Signs Temp Pulse Pulse Pulse Resp BP BP 09/02/18 18:54 96 16 164/90 09/02/18 16:19 92 16 09/02/18 15:47 98.2 F 96 18 172/104 09/02/18 12:52 98.1 F 96 18 166/94 09/02/18 09:55 98.1 F 96 24 166/90 09/02/18 09:17 97.9 F 85 16 168/85 09/02/18 07:28 97.8 F 09/02/18 07:25 72 19 134/76 09/02/18 07:24 72 16 134/76 09/02/18 06:10 99.4 F 91 16 149/76 Pulse Ox 09/02/18 18:54 94 L 09/02/18 16:19 95 09/02/18 15:47 92 L 09/02/18 12:52 96 09/02/18 09:55 96 09/02/18 09:17 95 09/02/18 07:28 09/02/18 07:25 99 09/02/18 07:24 99 09/02/18 06:10 95 Intake and Output 09/02/18 09/02/18 09/02/18 06:59 14:59 22:59 Intake Total 10 Output Total 250 325 Balance -240 -325 Intake: Oral 10 Output: Urine 200 275 Emesis 50 50 Other: Weight 79.379 kg On physical examination, patient appears comfortable in no apparent distress. HEAD: Normocephalic, atraumatic. EYES: No scleral icterus. No conjunctival injection. MOUTH: No lesions, tongue midline. NECK: Trachea midline, no gross abnormalities. CHEST: Clear to auscultation with no wheezing or rhonchi appreciated. HEART: Regular rate and rhythm. ABDOMEN: Soft, obese. Bowel sounds are hypoactive. No organomegaly. No guarding or rigidity. EXTREMITIES: No pedal edema. SKIN: No rashes, no jaundice. NEUROLOGIC: Alert and oriented x3. No focal deficits. Results CBC & Chem 7: 09/02/18 06:25 09/02/18 06:25 Labs: Abnormal Lab Results - Last 24 Hours (Table) 09/02/18 09/02/18 09/02/18 Range/Units 06:25 06:25 06:36 WBC 10.7 H (3.8-10.6) k/uL Neutrophils # 9.9 H (1.3-7.7) k/uL Lymphocytes # 0.4 L (1.0-4.8) k/uL Chloride 109 H (98-107) mmol/L BUN 22 H (7-17) mg/dL Glucose 159 H (74-99) mg/dL C-Reactive Protein 11.3 H (<10.0) mg/L Urine Appearance Cloudy H (Clear) Urine Protein 1+ H (Negative) Urine Ketones 1+ H (Negative) Urine Blood Trace H (Negative) Ur Leukocyte Esterase Small H (Negative) Urine RBC 12 H (0-5) /hpf Amorphous Sediment Rare H (None) /hpf Urine Bacteria Rare H (None) /hpf Urine Mucus Many H (None) /hpf CT scan - abdomen: report reviewed (Computed tomography scan of the abdomen with findings of dilated small bowel measuring up to 3.3 cm with caliber changes noted within the distal ileum, distal ileum demonstrates wall thickening which may reflect ileitis or Crohn's disease.) Assessment and Plan (1) Ileitis Narrative/Plan: 63-year-old female with a history of Crohn's disease for over 40 years which she denies any prior complications, surgeries, steroid therapy in the past who presents with complaints of abdominal pain, nausea and vomiting. The patient was found to have ileal inflammation as well as small bowel dilation on computed tomography scan concerning for active Crohn's disease with possible bowel obstruction. CRP was found to be mildly elevated greater than 10. Currently she is denying any flatus or bowel movements since 10 AM. Current Visit: Yes Status: Acute Code(s): K52.9 - NONINFECTIVE GASTROENTERITIS AND COLITIS, UNSPECIFIED SNOMED Code(s): 42589414 (2) Crohns disease Current Visit: Yes Status: Acute Code(s): K50.90 - CROHN'S DISEASE, UNSPECIFIED, WITHOUT COMPLICATIONS SNOMED Code(s): 77667505 (3) Abdominal pain Current Visit: No Status: Acute Code(s): R10.9 - UNSPECIFIED ABDOMINAL PAIN SNOMED Code(s): 96460485 (4) GERD (gastroesophageal reflux disease) Current Visit: No Status: Chronic Code(s): K21.9 - GASTRO-ESOPHAGEAL REFLUX DISEASE WITHOUT ESOPHAGITIS SNOMED Code(s): 334841677 Plan: Supportive care Will repeat ESR and CRP Continue antibiotic therapy, currently on Zosyn and Flagyl We'll add Solu-Medrol 20 mg every 8 hours Surgical service has seen the patient, appreciate the recommendations Consideration is for NG tube placement given continued nausea and vomiting Nothing by mouth Continue to follow symptomatically Thank you for allowing us to participate in the care of the patient we will continue to follow
[2018-09-02] MEDS: methylPREDNISolone SOD SUCCI 40 MG/ML 1 ML VIAL IV SCH (20:36)
[2018-09-02] MEDS: HEPARIN SODIUM,PORCINE 5,000 UNIT/ML 1 ML VIAL SQ SCH (20:36)
[2018-09-02] MEDS: metroNIDAZOLE-NS PMX 500 MG in SALINE 1 100ML.BAG IVPB SCH ×2 (22:29→23:41)
[2018-09-03] MEDS: PIPERACILLIN-TAZOBACTAM 3.375 GM in SODIUM CHLORIDE 0.9% 100 ML IVPB SCH ×3 (00:54→16:58)
[2018-09-03] MEDS: DEXTROSE 5%-0.9% NACL 1,000 ML IV SCH ×3 (02:42→23:21)
[2018-09-03] MEDS: methylPREDNISolone SOD SUCCI 40 MG/ML 1 ML VIAL IV SCH ×3 (05:08→20:38)
[2018-09-03] MEDS ORDERED: ACETAMINOPHEN TAB 325 MG TAB PO PRN (07:29)
[2018-09-03] MEDS: metroNIDAZOLE-NS PMX 500 MG in SALINE 1 100ML.BAG IVPB SCH ×3 (07:41→23:22)
[2018-09-03] MEDS: PANTOPRAZOLE 40 MG/10 ML VIAL IVP SCH (09:01)
[2018-09-03] MEDS: HEPARIN SODIUM,PORCINE 5,000 UNIT/ML 1 ML VIAL SQ SCH ×2 (09:02→20:37)
--- NOTE | 2018-09-03 09:19 | P.PN ---
Subjective Progress Note Date: 09/03/18 Principal diagnosis: Abdominal pain, nausea and vomiting The patient is seen on rounds. She states she is feeling much better today. Pain is improved. No nausea or vomiting. Started having watery stools. Objective - Vital Signs Vital signs: Vital Signs Temp 98.2 F 09/03/18 08:01 Pulse 83 09/03/18 08:01 Resp 20 09/03/18 08:01 BP 136/75 09/03/18 08:01 Pulse Ox 95 09/03/18 08:01 Intake & Output 09/02/18 09/03/18 09/03/18 18:59 06:59 18:59 Intake Total 10 Output Total 575 200 Balance -565 -200 Intake: Oral 10 Output: Urine 475 200 Emesis 100 Other: Voiding Method Toilet # Voids 200 # Bowel Movements 1 1 # Emeses 1 - Constitutional General appearance: Present: cooperative, no acute distress - Respiratory Respiratory: bilateral: CTA - Gastrointestinal General gastrointestinal: Present: distended (But much less so than yesterday), soft, tenderness (Minimal tenderness without guarding or rebound) - Labs CBC & Chem 7: 09/02/18 06:25 09/02/18 06:25 Labs: Abnormal Lab Results - Last 24 Hours (Table) 09/03/18 Range/Units 07:20 C-Reactive Protein 32.2 H (<10.0) mg/L Assessment and Plan (1) Crohns disease Current Visit: Yes Status: Acute Code(s): K50.90 - CROHN'S DISEASE, UNSPECIFIED, WITHOUT COMPLICATIONS SNOMED Code(s): 09479299 (2) Abdominal pain Current Visit: No Status: Acute Code(s): R10.9 - UNSPECIFIED ABDOMINAL PAIN SNOMED Code(s): 05543560 Plan: Clinically the patient is improving. She's being followed by GI. Her nausea and vomiting have resolved. I will follow her but at this point she does not appear to need any surgical intervention.
--- NOTE | 2018-09-03 11:33 | P.PN ---
Subjective Progress Note Date: 09/03/18 Principal diagnosis: abdominal pain crohns ileitis Passing flatus stool. Abefrile. AP improved. SR 29. CRP 32.2. Objective - Vital Signs Vital signs: Vital Signs Temp 98.2 F 09/03/18 08:01 Pulse 83 09/03/18 08:01 Resp 20 09/03/18 08:01 BP 136/75 09/03/18 08:01 Pulse Ox 95 09/03/18 08:01 Intake & Output 09/02/18 09/03/18 09/03/18 18:59 06:59 18:59 Intake Total 10 240 Output Total 575 200 Balance -565 -200 240 Intake: Oral 10 240 Output: Urine 475 200 Emesis 100 Other: Voiding Method Toilet # Voids 200 1 # Bowel Movements 1 1 # Emeses 1 - Constitutional General appearance: Present: obese - EENT Eyes: Present: normal appearance Ears: bilateral: normal - Neck Neck: Present: normal ROM - Respiratory Respiratory: bilateral: CTA - Cardiovascular Rhythm: regular Heart sounds: normal: S1, S2 - Gastrointestinal General gastrointestinal: Present: normal bowel sounds, soft - Neurologic Neurologic: Present: CNII-XII intact - Psychiatric Psychiatric: Present: A&O x's 3, appropriate affect - Labs CBC & Chem 7: 09/02/18 06:25 09/02/18 06:25 Labs: Abnormal Lab Results - Last 24 Hours (Table) 09/03/18 09/03/18 Range/Units 07:20 07:20 ESR 29 H (0-20) mm/hr C-Reactive Protein 32.2 H (<10.0) mg/L Assessment and Plan (1) Ileitis Current Visit: Yes Status: Acute Code(s): K52.9 - NONINFECTIVE GASTROENTERITIS AND COLITIS, UNSPECIFIED SNOMED Code(s): 35862569 (2) History of Crohn's disease Current Visit: Yes Status: Chronic Code(s): Z87.19 - PERSONAL HISTORY OF OTHER DISEASES OF THE DIGESTIVE SYSTEM SNOMED Code(s): 717515931722771 (3) Abdominal pain Current Visit: No Status: Acute Code(s): R10.9 - UNSPECIFIED ABDOMINAL PAIN SNOMED Code(s): 77489141 Plan: 1. IV steroids wean tomorrow. 2. Diet per surgery. 3. RTO 2-3 weeks after DC. Assessment and plan of care discussed with Dr. Horvath
[2018-09-04] MEDS: PIPERACILLIN-TAZOBACTAM 3.375 GM in SODIUM CHLORIDE 0.9% 100 ML IVPB SCH ×3 (00:16→16:11)
[2018-09-04] MEDS: MAG HYDROX/AL HYDROX/SIMETH 30 ML CUP PO PRN ×4 (01:00→23:08)
[2018-09-04] MEDS: methylPREDNISolone SOD SUCCI 40 MG/ML 1 ML VIAL IV SCH ×3 (04:11→19:43)
[2018-09-04] MEDS: PANTOPRAZOLE 40 MG/10 ML VIAL IVP SCH (07:17)
[2018-09-04] MEDS: DEXTROSE 5%-0.9% NACL 1,000 ML IV SCH ×2 (08:41→16:00)
[2018-09-04] MEDS: HEPARIN SODIUM,PORCINE 5,000 UNIT/ML 1 ML VIAL SQ SCH ×2 (08:41→19:42)
[2018-09-04] MEDS: metroNIDAZOLE-NS PMX 500 MG in SALINE 1 100ML.BAG IVPB SCH ×3 (08:41→22:59)
--- NOTE | 2018-09-04 14:25 | P.PN ---
Subjective Progress Note Date: 09/04/18 Principal diagnosis: Abdominal pain, nausea and vomiting The patient is seen on rounds. Feeling much better. No nausea or vomiting. Tolerating a diet. Still having watery stools. Objective - Vital Signs Vital signs: Vital Signs Temp 97.7 F 09/04/18 07:26 Pulse 62 09/04/18 07:26 Resp 18 09/04/18 07:26 BP 131/76 09/04/18 07:26 Pulse Ox 94 L 09/04/18 07:26 Intake & Output 09/03/18 09/04/18 09/04/18 18:59 06:59 18:59 Intake Total 240 1020 Balance 240 1020 Intake: Oral 240 1020 Other: # Voids 1 1 # Bowel Movements 1 1 - Constitutional General appearance: Present: cooperative, no acute distress - Gastrointestinal General gastrointestinal: Present: normal bowel sounds, soft. Absent: tenderness - Labs CBC & Chem 7: 09/02/18 06:25 09/02/18 06:25 Assessment and Plan (1) Crohns disease Current Visit: Yes Status: Acute Code(s): K50.90 - CROHN'S DISEASE, UNSPECIFIED, WITHOUT COMPLICATIONS SNOMED Code(s): 69925398 (2) Abdominal pain Current Visit: No Status: Acute Code(s): R10.9 - UNSPECIFIED ABDOMINAL PAIN SNOMED Code(s): 42513432 Plan: The patient is responding well to medical treatment. No surgical intervention is needed. Will follow up as needed. Encouraged patient to make sure she is drinking enough fluids after dischage so she doesn't become dehydrated.
--- NOTE | 2018-09-04 14:47 | P.PN ---
Subjective Progress Note Date: 09/04/18 Principal diagnosis: Exacerbation of Crohn's disease 63 years old female with past medical history of GERD, Crohn's disease, diverticulitis, cluster headache, kidney stones, who presents because of abdominal pain in the right middle abdomen close to the umbilicus., Feels like burning, dull quite severe of 1-2 days's duration, associated with frequent nausea vomiting, patient vomited about 10 times. She had loose bowel movement twice last night last one was earlier this morning at 5:00. Since then she is passing gases. Vitas looks stable, mild leukocytosis at 10.7 K. Rest of CBC and CMP were unremarkable. Liver enzymes not elevated. She has CT of the abdomen and pelvis with contrast: Dilated small bowel, with caliber change within the ileum , and there is distal ileum wall thickening suspicious for ileitis or Crohn's disease. 09/04/2018 Patient is seen and evaluated in the room at bedside; patient relates her diet has been advanced and she's been tolerating it well; reports improving abdominal pain but continuing to have watery diarrhea Plan is to continue to advance diet as tolerated and possible discharge home on tapered dose of steroids and had Objective - Vital Signs Vital signs: Vital Signs Temp 97.7 F 09/04/18 07:26 Pulse 62 09/04/18 07:26 Resp 18 09/04/18 07:26 BP 131/76 09/04/18 07:26 Pulse Ox 94 L 09/04/18 07:26 Intake & Output 09/03/18 09/04/18 09/04/18 18:59 06:59 18:59 Intake Total 240 1020 Balance 240 1020 Intake: Oral 240 1020 Other: # Voids 1 1 # Bowel Movements 1 1 - Exam GENERAL: The patient is alert and oriented x3, not in any acute distress. Well developed, well nourished. HEENT: Pupils are round and equally reacting to light. EOMI. No scleral icterus. No conjunctival pallor. Normocephalic, atraumatic. No pharyngeal erythema. No thyromegaly. CARDIOVASCULAR: S1 and S2 present. No murmurs, rubs, or gallops. PULMONARY: Chest is clear to auscultation, no wheezing or crackles. -ABDOMEN: Soft, right periumbilical tenderness, no rebound tenderness or guarding nondistended, normoactive bowel sounds. No palpable organomegaly. MUSCULOSKELETAL: No joint swelling or deformity. EXTREMITIES: No cyanosis, clubbing, or pedal edema. NEUROLOGICAL: Gross neurological examination did not reveal any focal deficits. SKIN: No rashes. - Labs CBC & Chem 7: 09/02/18 06:25 09/02/18 06:25 Assessment and Plan Assessment: 1. Acute gastroenteritis and colitis - IV fluid hydration; advance diet as tolerated 2. Possible exacerbation of Crohn's disease - Patient started on IV Solu-Medrol per GI recommendations - Continue with IV fluid hydration and continue to advance diet as tolerated - Gen. surgery on board; no surgeries recommended at this time 3. History of cluster headaches; stable 4. Gastroesophageal reflux disease; Protonix 40 mg daily 5. DVT prophylaxis; subcu heparin CODE STATUS; full code Time with Patient: Greater than 30
--- NOTE | 2018-09-04 20:54 | P.PN ---
Subjective Progress Note Date: 09/04/18 Principal diagnosis: Abdominal pain, Crohn's disease Patient lying in bed reporting that her abdominal pain is much improved. No further nausea or vomiting. She is tolerating her diet. Objective - Vital Signs Vital signs: Vital Signs Temp 98.3 F 09/04/18 19:00 Pulse 54 L 09/04/18 19:00 Resp 18 09/04/18 19:00 BP 118/65 09/04/18 19:00 Pulse Ox 95 09/04/18 19:00 Intake & Output 09/04/18 09/04/18 09/05/18 06:59 18:59 06:59 Intake Total 1020 Balance 1020 Intake: Oral 1020 Other: # Voids 1 # Bowel Movements 1 - Exam On physical examination, patient appears comfortable in no apparent distress. HEAD: Normocephalic, atraumatic. EYES: No scleral icterus. No conjunctival injection. MOUTH: No lesions, tongue midline. NECK: Trachea midline, no gross abnormalities. CHEST: Clear to auscultation with no wheezing or rhonchi appreciated. HEART: Regular rate and rhythm. ABDOMEN: Soft, obese. Bowel sounds are positive. No organomegaly. No guarding or rigidity. EXTREMITIES: No pedal edema. SKIN: No rashes, no jaundice. NEUROLOGIC: Alert and oriented x3. No focal deficits. - Labs CBC & Chem 7: 09/02/18 06:25 09/02/18 06:25 Assessment and Plan (1) Ileitis Narrative/Plan: 63-year-old female with a history of Crohn's disease for over 40 years which she denies any prior complications, surgeries, steroid therapy in the past who presents with complaints of abdominal pain, nausea and vomiting. The patient was found to have ileal inflammation as well as small bowel dilation on computed tomography scan concerning for active Crohn's disease with possible bowel obstruction. Symptomatically improved on steroid therapy, now tolerating diet and having bowel movements. Current Visit: Yes Status: Acute Code(s): K52.9 - NONINFECTIVE GASTROENTERITIS AND COLITIS, UNSPECIFIED SNOMED Code(s): 34222923 (2) Crohns disease Current Visit: Yes Status: Acute Code(s): K50.90 - CROHN'S DISEASE, UNSPECIFIED, WITHOUT COMPLICATIONS SNOMED Code(s): 66491021 (3) Abdominal pain Current Visit: No Status: Acute Code(s): R10.9 - UNSPECIFIED ABDOMINAL PAIN SNOMED Code(s): 89717655 (4) GERD (gastroesophageal reflux disease) Current Visit: No Status: Chronic Code(s): K21.9 - GASTRO-ESOPHAGEAL REFLUX DISEASE WITHOUT ESOPHAGITIS SNOMED Code(s): 977491920 Plan: Supportive care Will repeat ESR and CRP Continue antibiotic therapy, currently on Zosyn and Flagyl We will change to oral steroids, with prednisone 40 mg daily, the patient should then be discharged to taper 5 mg per week Surgical service has seen the patient, appreciate the recommendations Diet was advanced by surgery today Continue to follow symptomatically Thank you for allowing us to participate in the care of the patient we will continue to follow
[2018-09-05] MEDS: PIPERACILLIN-TAZOBACTAM 3.375 GM in SODIUM CHLORIDE 0.9% 100 ML IVPB SCH ×3 (00:28→15:44)
[2018-09-05] MEDS: DEXTROSE 5%-0.9% NACL 1,000 ML IV SCH ×2 (04:50→13:01)
[2018-09-05] MEDS: MAG HYDROX/AL HYDROX/SIMETH 30 ML CUP PO PRN ×2 (04:52→08:58)
[2018-09-05] MEDS: metroNIDAZOLE-NS PMX 500 MG in SALINE 1 100ML.BAG IVPB SCH ×2 (07:42→14:55)
[2018-09-05 07:49] VITALS: BP 145/78; PULSE 50; RESP 16; TEMP 98
[2018-09-05] MEDS: PANTOPRAZOLE 40 MG/10 ML VIAL IVP SCH (08:58)
[2018-09-05] MEDS: HEPARIN SODIUM,PORCINE 5,000 UNIT/ML 1 ML VIAL SQ SCH (08:58)
[2018-09-05] MEDS ORDERED: predniSONE 20 MG TAB PO SCH (09:00)
--- NOTE | 2018-09-05 16:13 | P.PN ---
Subjective Progress Note Date: 09/05/18 Principal diagnosis: Abdominal pain, Crohn's disease Patient seen and examined standing bedside. No further abdominal pain, nausea or vomiting. Tolerating her diet. Objective - Vital Signs Vital signs: Vital Signs Temp 98.0 F 09/05/18 07:00 Pulse 50 L 09/05/18 07:00 Resp 16 09/05/18 07:00 BP 145/78 09/05/18 07:00 Pulse Ox 95 09/05/18 07:00 Intake & Output 09/04/18 09/05/18 09/05/18 18:59 06:59 18:59 Intake Total 480 Balance 480 Intake: Oral 480 Other: # Voids 1 # Bowel Movements 1 1 1 - Exam On physical examination, patient appears comfortable in no apparent distress. HEAD: Normocephalic, atraumatic. EYES: No scleral icterus. No conjunctival injection. MOUTH: No lesions, tongue midline. NECK: Trachea midline, no gross abnormalities. CHEST: Clear to auscultation with no wheezing or rhonchi appreciated. HEART: Regular rate and rhythm. ABDOMEN: Soft, obese. Bowel sounds are positive. No organomegaly. No guarding or rigidity. EXTREMITIES: No pedal edema. SKIN: No rashes, no jaundice. NEUROLOGIC: Alert and oriented x3. No focal deficits. - Labs CBC & Chem 7: 09/02/18 06:25 09/02/18 06:25 Assessment and Plan (1) Ileitis Narrative/Plan: 63-year-old female with a history of Crohn's disease for over 40 years which she denies any prior complications, surgeries, steroid therapy in the past who presents with complaints of abdominal pain, nausea and vomiting. The patient was found to have ileal inflammation as well as small bowel dilation on computed tomography scan concerning for active Crohn's disease with possible bowel obstruction. Symptomatically improved on steroid therapy, now tolerating diet and having bowel movements. Current Visit: Yes Status: Acute Code(s): K52.9 - NONINFECTIVE GASTROENTERITIS AND COLITIS, UNSPECIFIED SNOMED Code(s): 31046383 (2) Crohns disease Current Visit: Yes Status: Acute Code(s): K50.90 - CROHN'S DISEASE, UNSPECIFIED, WITHOUT COMPLICATIONS SNOMED Code(s): 47117255 (3) Abdominal pain Current Visit: No Status: Acute Code(s): R10.9 - UNSPECIFIED ABDOMINAL PAIN SNOMED Code(s): 19287799 (4) GERD (gastroesophageal reflux disease) Current Visit: No Status: Chronic Code(s): K21.9 - GASTRO-ESOPHAGEAL REFLUX DISEASE WITHOUT ESOPHAGITIS SNOMED Code(s): 739511005 Plan: Supportive care ESR and CRP improved on steroid therapy Continue antibiotic therapy, currently on Zosyn and Flagyl We will change to oral steroids, with prednisone 40 mg daily, the patient should then be discharged to taper 5 mg per week Surgical service has seen the patient, appreciate the recommendations Diet was advanced Patient will need follow-up with gastroenterology after discharge Continue to follow symptomatically Thank you for allowing us to participate in the care of the patient we will continue to follow
--- NOTE | 2018-09-07 23:24 | P.DS ---
Providers Date of admission: 09/03/18 15:08 Expected date of discharge: 09/05/18 Attending physician: India Narayanan Consults: 09/02/18 08:45 Consult Physician Urgent Consulting Provider: Kya Garcia Consult Reason/Comments: Ileitis, history of Crohn's Do you want consulting provider notified?: Yes 09/02/18 16:17 Consult Physician Urgent Consulting Provider: Leigh Velez Consult Reason/Comments: crohns, abd pain Do you want consulting provider notified?: Yes Primary care physician: [facility] Course: 63 years old female with past medical history of GERD, Crohn's disease, diverticulitis, cluster headache, kidney stones, who presents because of abdominal pain in the right middle abdomen close to the umbilicus., Feels like burning, dull quite severe of 1-2 days's duration, associated with frequent nausea vomiting, patient vomited about 10 times. She had loose bowel movement twice last night last one was earlier this morning at 5:00. Since then she is passing gases. Vitas looks stable, mild leukocytosis at 10.7 K. Rest of CBC and CMP were unremarkable. Liver enzymes not elevated. She has CT of the abdomen and pelvis with contrast: Dilated small bowel, with caliber change within the ileum , and there is distal ileum wall thickening suspicious for ileitis or Crohn's disease. 09/04/2018 Patient is seen and evaluated in the room at bedside; patient relates her diet has been advanced and she's been tolerating it well; reports improving abdominal pain but continuing to have watery diarrhea Plan is to continue to advance diet as tolerated and possible discharge home on tapered dose of steroids Patient Condition at Discharge: Good Plan - Discharge Summary Discharge Rx Participant: Yes New Discharge Prescriptions: New predniSONE 40 mg PO DAILY #14 tab predniSONE 30 mg PO DAILY #14 tab predniSONE 20 mg PO DAILY #14 tab Levofloxacin [Levaquin] 750 mg PO DAILY #7 tab metroNIDAZOLE [Flagyl] 500 mg PO Q8HR #21 tab Continue Omeprazole [PriLOSEC] 20 mg PO BID PRN PRN Reason: GERD Multivitamins, Thera [Multivitamin (formulary)] 1 tab PO DAILY Vitamin B Complex 1 cap PO DAILY Discharge Medication List Omeprazole [PriLOSEC] 20 mg PO BID PRN 03/25/18 [History] Multivitamins, Thera [Multivitamin (formulary)] 1 tab PO DAILY 09/02/18 [History ] Vitamin B Complex 1 cap PO DAILY 09/02/18 [History] Levofloxacin [Levaquin] 750 mg PO DAILY #7 tab 09/05/18 [Rx] metroNIDAZOLE [Flagyl] 500 mg PO Q8HR #21 tab 09/05/18 [Rx] predniSONE 20 mg PO DAILY #14 tab 09/05/18 [Rx] predniSONE 30 mg PO DAILY #14 tab 09/05/18 [Rx] predniSONE 40 mg PO DAILY #14 tab 09/05/18 [Rx] Follow up Appointment(s)/Referral(s): Avelino Mendoza MD [Primary Care Provider] - 1-2 days Jagjit Horvath MD [STAFF PHYSICIAN] - 3 Weeks Activity/Diet/Wound Care/Special Instructions: Continue low fiber diet as tolerated. fluids are always encouraged. practice good hand washing. Continue antibiotics in their entirety as directed by physician. You may start them this evening. Continue the prednisone tomorrow and continue the taper as directed by physician. Follow up with physicians as directed. Call physician with any worsening returning symptoms, fever 101.1 or higher, not tolerating diet or fluids, pain not controlled by recommendations. Discharge Disposition: HOME SELF-CARE
== END 2018-09-05 16:10 | disposition home or self-care (01) | DRG 387 ==
LOC: EC 06:09 → 6PED 08:59 → OBSVTOIN 09-03 15:08
PROVIDERS: ADMIT Hospitalist; ATTEND Hospitalist
DX: K50.012 Crohn's disease of small intestine with intestinal obstruction (principal); K21.9 Gastro-esophageal reflux disease without esophagitis; G44.009 Cluster headache syndrome, unspecified, not intractable; F17.200 Nicotine dependence, unspecified, uncomplicated; E66.9 Obesity, unspecified; N28.9 Disorder of kidney and ureter, unspecified; Z68.28 Body mass index [BMI] 28.0-28.9, adult; K52.9 Noninfective gastroenteritis and colitis, unspecified; Z79.899 Other long term (current) drug therapy; Z90.710 Acquired absence of both cervix and uterus; Z85.828 Personal history of other malignant neoplasm of skin; Z90.49 Acquired absence of other specified parts of digestive tract; Z87.442 Personal history of urinary calculi; Z80.9 Family history of malignant neoplasm, unspecified
CPT/HCPCS: 36415; 74177; 80053; 81001; 82150; 83690; 85025; 85652; 86140; 87324; 96361; 96374; 96375; 96376; 99285

== ENCOUNTER → 2018-11-22 | Day surgery (SDC) | payer OTHER ==
[~2018-11-22] MED LIST changes: +GLUCAGON 1 MG/ML VIAL IM STA; -ceFAZolin 1,000 MG in DEXTROSE/WATER 1 50ML.BAG IVPB ONE
[2018-11-22 08:26] VITALS: BP 135/64; PULSE 77; RESP 20; TEMP 98.1
--- NOTE | 2018-11-22 21:25 | MR ---
EXAMINATION TYPE: MR Enterography DATE OF EXAM: 11/22/2018 COMPARISON: CT abdomen and pelvis September 02, 2018 HISTORY: Crohn's disease CONTRAST: Standard multiplanar, multisequence imaging of the abdomen is performed without and with IV contrast, patient is injected with 7.5 mL intravenous Gadavist gadolinium contrast. Oral Volumen and Water was given as per enterography protocol. FINDINGS: Bowel: There is satisfactory distention of the stomach below diaphragm without suspicious eccentric e nhancement or wall thickening. At least moderate size fixed hiatal hernia is partially imaged on MRI. Duodenal sweep shows suboptimal distention without suspicious eccentric wall thickening or mural enh ancement. Jejunal loops in the left abdomen show no suspicious vasa engorgement or mucosal enhancemen t. Ileal loops show fairly satisfactory fluid distention without suspicious eccentric mural thickenin g or enhancement. Terminal ileum is felt within normal limits satisfactorily distended and fluid-fill ed without suspicious enhancement. Marked improvement from prior CT. Colon shows fairly satisfactory fluid-filled distention with some scattered diverticula in the left and sigmoid colon. There is area of mild to moderate wall thickening and mucosal enhancement in the left pelvis suspicious for acute d iverticulitis seen best postcontrast axial image 47. No well-formed fluid collection or abscess is pr esent. Other: Lung bases are clear. Gallbladder is surgically absent. The liver, spleen, pancreas, and both adrenal glands are normal in size. There are several simple-appearing thin-walled cysts scattered throughout both kidneys, right more nu merous than left. The lower pole right kidney there is focal cortical thinning with a T1 hyperintense T2 hypointense nonenhancing 1.5 cm lesion felt to reflect proteinaceous cyst. Uterus is surgically absent. Visualized portion of the bladder is unremarkable. Visualized osseous st ructures are intact. No suspicious greater than 1 cm abdominal adenopathy is present. IMPRESSION: 1. Marked interval improvement in long segment acute inflammation involving the distal and terminal i leum on MR enterography versus comparison CT. Marked improvement in small bowel obstruction related t o inflammatory change. There is suspicion for focal uncomplicated mild to moderate acute diverticulit is involving proximal to mid sigmoid colon in the left pelvis on current study. Correlate clinically.
== END ==
LOC: RADMRIMAIN 08:12
DX: K50.90 Crohn's disease, unspecified, without complications (principal)
CPT/HCPCS: 96372; 72197; 74183; J1610; A9585

== ENCOUNTER 2018-12-26 14:00 | Emergency (ER) | payer OTHER ==
[2018-12-26 14:05] VITALS: BP 140/74; PULSE 78; RESP 18; TEMP 97.9
[2018-12-26] MEDS ORDERED: ACETAMINOPHEN TAB 325 MG TAB PO STA (14:15)
--- NOTE | 2018-12-26 14:37 | XR ---
EXAMINATION TYPE: XR forearm RT, XR wrist complete RT DATE OF EXAM: 12/26/2018 CLINICAL HISTORY: Follow injury today with pain. TECHNIQUE: Two views of the right forearm are obtained. 4 views right wrist. COMPARISON: None. FINDINGS: There is acute comminuted displaced intra-articular fracture distal radial meta-epiphysis. There is a 1.6 x 0.9 cm triangular-shaped fracture fragment ulnar aspect. There is additional acute avulsion type fracture from the ulnar aspect ulnar styloid with 5 to 6 mm tiny wedge-shaped fracture fragment. Carpal joint spaces are maintained. There is no additional proximal fracture or dislocation in the right forearm. Visualized portion of r ight elbow joint is within normal limits. IMPRESSION: There is acute comminuted slightly displaced intra-articular articular distal radial met a-epiphysis and acute avulsion type fracture through the ulnar styloid. (Initial encounter closed type posttraumatic fracture)
--- NOTE | 2018-12-26 14:37 | ED ---
Fall HPI - General Chief Complaint: Fall Stated Complaint: Wrist injury Time Seen by Provider: 12/26/18 14:06 Source: patient Mode of arrival: ambulatory - History of Present Illness Initial Comments: Patient is 63-year-old female presented to emergency department with right forearm and wrist pain. Patient reports incident occurred 1 hour ago she was walking around the house and slipped on mode falling on the right side of her body with her arm under it. Patient reports pain is located along the distal forearm and wrist. Patient reports pain is exacerbated with pronation and supination of the forearm and flexion and extension of the wrist. Patient reports the pain is alleviated with rest. Patient reports taking 2 doses of naproxen to alleviate the pain. Patient denies any numbness or tingling. Patient also reports having her head when she fell but denies loss of consciousness. Patient denies blurry vision, headache, nausea, vomiting, chest pain chest tightness, dizziness or lightheadedness. Patient is not on blood thinners. - Related Data Home Medications Medication Instructions Recorded Confirmed Omeprazole [PriLOSEC] 20 mg PO BID PRN 03/25/18 11/22/18 Multivitamins, Thera [Multivitamin 1 tab PO DAILY 09/02/18 11/22/18 (formulary)] Vitamin B Complex 1 cap PO DAILY 09/02/18 11/22/18 Previous Rx's Medication Instructions Recorded Levofloxacin [Levaquin] 750 mg PO DAILY #7 tab 09/05/18 metroNIDAZOLE [Flagyl] 500 mg PO Q8HR #21 tab 09/05/18 predniSONE 20 mg PO DAILY #14 tab 09/05/18 predniSONE 30 mg PO DAILY #14 tab 09/05/18 predniSONE 40 mg PO DAILY #14 tab 09/05/18 Allergies Allergy/AdvReac Type Severity Reaction Status Date / Time No Known Allergies Allergy Verified 11/22/18 08:31 Review of Systems ROS Statement: Those systems with pertinent positive or pertinent negative responses have been documented in the HPI. ROS Other: All systems not noted in ROS Statement are negative. Past Medical History Past Medical History: Cancer, GERD/Reflux, Renal Disease Additional Past Medical History / Comment(s): Chron's, diverticulitis, cluster headaches, bronchitis, sinus problems, nephrolithiasis with surgery, skin cancer with removal, anemia. History of Any Multi-Drug Resistant Organisms: None Reported Past Surgical History: Adenoidectomy, Appendectomy, Bowel Resection, Cholecystectomy, Heart Catheterization, Hernia Repair, Hysterectomy, Tonsillectomy Additional Past Surgical History / Comment(s): Colonoscopies, EGD, cecum repair, L percutaneous nephrostolithotomy/cystoscopy, abdominal hernia repair with mesh, R foot fracture d/t fracture, skin cancer removals. Past Anesthesia/Blood Transfusion Reactions: Motion Sickness Additional Past Anesthesia/Blood Transfusion Reaction / Comment(s): Pt has received blood in past without reaction. Past Psychological History: No Psychological Hx Reported Smoking Status: Current some day smoker Past Alcohol Use History: Occasional Past Drug Use History: None Reported - Past Family History Father Family Medical History: Cancer Additional Family Medical History / Comment(s): lung Mother Family Medical History: Cancer Additional Family Medical History / Comment(s): brain General Exam Limitations: no limitations General appearance: alert, in no apparent distress Head exam: Present: normocephalic, normal inspection (Negative cope sign, negative raccoon eyes or hemotympanum.). Absent: atraumatic (1 cm abrasion on the frontal region of the head.) Eye exam: Present: normal appearance, PERRL, EOMI. Absent: periorbital swelling, periorbital tenderness Pupils: Present: normal accommodation ENT exam: Present: normal exam, mucous membranes moist Neck exam: Present: normal inspection Respiratory exam: Present: normal lung sounds bilaterally. Absent: respiratory distress Cardiovascular Exam: Present: regular rate, normal rhythm, normal heart sounds GI/Abdominal exam: Present: soft Extremities exam: Present: normal inspection, tenderness (Tenderness along the posterior and anterior aspect of the distal forearm.), normal capillary refill, other (+2 radial and ulnar pulses, bilaterally. Mild swelling on the right distal forearm but no erythema.). Absent: full ROM (Range of motion limited due to pain. Pain with pronation, supination, flexion, extension.) Back exam: Present: normal inspection, full ROM Neurological exam: Present: alert, oriented X3 Psychiatric exam: Present: normal affect, normal mood Skin exam: Present: warm, intact, normal color Course Vital Signs 12/26/18 14:01 Temperature 97.9 F Pulse Rate 78 Respiratory 18 Rate Blood Pressure 140/74 O2 Sat by Pulse 97 Oximetry Procedures - Orthopedic Splinting/Casting Injury #1 Side: right Upper Extremity Injury Location: wrist Upper Extremity Immobilizer: volar splint Medical Decision Making - Medical Decision Making Patient is 63-year-old male presents emergency department after fall. Patient was given Tylenol to alleviate the pain. X-ray of the right forearm and wrist were obtained. X-ray suggestive of a distal ulnar styloid fracture and distal radius fracture. Volar splint was applied at site of injury. Patient advised to apply ice to minimize swelling. Patient advised to alternate between Tylenol and ibuprofen for pain control. Patient advised to follow-up with orthopedics. Patient advised to return to emergency department if symptoms worsen. Case discussed physician. Disposition Clinical Impression: Right distal ulnar fracture, Distal radius fracture, right Disposition: HOME SELF-CARE Condition: Stable Instructions (If sedation given, give patient instructions): Wrist Fracture in Adults (ED) Additional Instructions: Please follow-up with orthopedics. Please use ice to minimize swelling. Alternate between Tylenol and ibuprofen for pain control. Please return to emergency department if symptoms worsen. Is patient prescribed a controlled substance at d/c from ED?: No Referrals: Avelino Mendoza MD [Primary Care Provider] - 1-2 days Tanner Soalno DO [Medical Doctor] - 1-2 days Time of Disposition: 14:56
== END 2018-12-26 15:10 | disposition home or self-care (01) ==
LOC: EC 14:00
DX: S52.501A Unspecified fracture of the lower end of right radius, initial encounter for closed fracture (principal); S52.611A Displaced fracture of right ulna styloid process, initial encounter for closed fracture; S00.91XA Abrasion of unspecified part of head, initial encounter; F17.200 Nicotine dependence, unspecified, uncomplicated; Z85.828 Personal history of other malignant neoplasm of skin; Z87.19 Personal history of other diseases of the digestive system; Z87.442 Personal history of urinary calculi; Z86.2 Personal history of diseases of the blood and blood-forming organs and certain disorders involving the immune mechanism; Z90.49 Acquired absence of other specified parts of digestive tract; Z98.890 Other specified postprocedural states; W01.198A Fall on same level from slipping, tripping and stumbling with subsequent striking against other object, initial encounter; Y93.01 Activity, walking, marching and hiking
CPT/HCPCS: 29125; 99283

== ENCOUNTER → 2019-02-01 | Outpatient (CLI) | payer OTHER ==
--- NOTE | 2019-02-01 16:10 | CT ---
EXAMINATION TYPE: CT lumbar spine wo con DATE OF EXAM: 02/01/2019 3:49 PM COMPARISON: CT abdomen pelvis dated 09/02/2018 HISTORY: Spondylosis w/out myelopathy or radiculopathy. PT fell 4 weeks ago, now having pain, radiati ng down RT leg and a clicking sensation when she lifts her leg CT DLP: 896.30 mGycm Automated exposure control for dose reduction was used. TECHNIQUE: Unenhanced CT of the lumbar spine was performed. Bone and soft tissue window settings are submitted as well as coronal and sagittal reconstructions. FINDINGS: There is a partially intrathoracic stomach. Left renal pelvic cyst although incompletely ch aracterized without contrast measures approximately 1.3 cm. There are multiple nonobstructing left re nal calculi measuring 6 and 3 mm as well as a dystrophic calcification of the cortex on the left. Pun ctate 1 to 2 mm nonobstructing calculus of the right kidney is also seen. Within the inferior pole th e right kidney there is a hyperdense lesion measuring 1.3 cm with cortical retraction and peripheral calcification. Correlate with any history of cryotherapy or radiofrequency ablation given the cortica l retraction. This does appear stable from the prior exams dating back to 11/19/2017. Therefore this m ay represent a hyperdense renal cyst at the site of prior cortical injury. Cholecystectomy clips are partially seen. Very minimal levoscoliosis of the lumbar spine. Mild multilevel degenerative disc disease is seen as intervertebral disc space narrowing and small anterior osteophytes with vacuum disc disease at L5-S1 and multilevel facet arthropathy. Evaluation of the spinal canal is limited on CT. The terminal ileum does demonstrate deposition of submucosal fat that can be seen in chronic inflamma tory bowel disease. This is marked on series 5 image 74. No current concerns stranding to indicate ac tive inflammatory process. L1-L2: Intervertebral disc desiccation and intervertebral disc space narrowing is seen. There is a le ft lateral disc herniation evident and posterior projecting osteophytes creating moderate left neural foraminal narrowing. Right neuroforamen and spinal canal appear patent. L2-L3: Small broad-based disc bulge is present without spinal canal stenosis. This results in mild bi lateral neural foraminal narrowing. L3-L4: Small broad-based disc bulge and minimal facet arthropathy creates mild bilateral neural tawana inal narrowing, right slightly greater than left. No spinal canal stenosis. L4-L5: There is a questioned left paracentral disc herniation superimposed upon a broad-based disc bu lge with mild facet arthropathy creating mild bilateral neural foraminal narrowing and probable mild spinal canal stenosis. This is marked in series 5 image 61. L5-S1: Disc desiccation and intervertebral disc space narrowing are present. Posterior projecting ost eophytes create mild bilateral neural foraminal narrowing. No spinal canal stenosis. IMPRESSION: 1. Suspected left paracentral disc herniation at L4-L5 and left lateral disc herniation at L1-L2. MRI lumbar spine could confirm these findings. There appears to be mild spinal canal stenosis at L4-L5 a nd variable degrees of neural foraminal narrowing as detailed above. 2. Nonobstructing bilateral renal calculi and similar-appearing right lower pole hyperdense renal les ion with cortical retraction stable dating back to 11/29/2017. 3. Partial intrathoracic stomach. 4. Deposition of fat within the terminal ileum can be seen in chronic inflammatory bowel disease.
== END | disposition home or self-care (01) ==
LOC: RADCTMAIN 15:27
PROVIDERS: ATTEND Physical Medicine & Rehabilitation
DX: M54.16 Radiculopathy, lumbar region (principal); M25.551 Pain in right hip
CPT/HCPCS: 72131

== ENCOUNTER 2020-02-20 07:43 | Day surgery (SDC) | payer OTHER ==
[2020-02-16 12:42] VITALS: BMI 30.9
[2020-02-20 08:11] VITALS: RESP 16; TEMP 98.1
[2020-02-20] MEDS ORDERED: LACTATED RINGERS 1,000 ML IV ONE (08:26)
[2020-02-20] MEDS ORDERED: PROPOFOL 10 MG/ML 20 ML VIAL IV ONE (09:06)
[2020-02-20] MEDS ORDERED: MIDAZOLAM 2 MG/2 ML VIAL ONE (09:06)
--- NOTE | 2020-02-20 09:27 | P.PCN ---
Date of Procedure: 02/20/20 Description of Procedure: BRIEF HISTORY: Patient is a 64-year-old female presenting for evaluation with EGD for Jeronimo's esophagus. Patient on PPI therapy with omeprazole 40 mg daily. PROCEDURE PERFORMED: Esophagogastroduodenoscopy with biopsy. PREOPERATIVE DIAGNOSIS: Jeronimo's esophagus. ESTIMATED BLOOD LOSS: Minimal. IV sedation per anesthesia. PROCEDURE: After informed consent was obtained, the patient was brought into the endoscopy unit. IV sedation was administered by Anesthesia under continuous monitoring. Initially the Olympus GIF-190 video endoscope was inserted into the mouth. Esophagus intubated without any difficulty. It was gradually advanced into the stomach and duodenum and carefully examined. The bulb and the second part of the duodenum appeared normal, with biopsies taken. The scope at this time was withdrawn to the stomach, adequately insufflated with air, and upon careful examination, mucosa of the antrum, body, cardia and the fundus appeared normal, with biopsies of antrum and body taken to rule out Helicobacter pylori. The scope was then withdrawn into the esophagus. The GE junction was located at 31 cm from the incisors, with 5 cm hiatal hernia noted. The esophagus appeared normal, with biopsies of the GE junction taken due to history of Jeronimo's esophagus. There were no erosions or ulcerations seen and the patient tolerated the procedure well. IMPRESSION: 1. Large hiatal hernia. 2. Biopsies of the GE junction, no obvious salmon-colored mucosa or Jeronimo's noted. 3. Biopsies of the duodenum, as well as the antrum body RECOMMENDATIONS: The findings of this examination were discussed with the patient. Okay to resume diet. Okay to resume medications. Await pathology from biopsies. Follow up in the gastrology clinic as previously scheduled for results of biopsies.
[2020-02-20 09:54] VITALS: BP 128/77; PULSE 68
== END 2020-02-20 10:15 | disposition home or self-care (01) ==
LOC: ORWHC2ENDO 07:43
PROVIDERS: ATTEND Internal Medicine
DX: K22.70 Barrett's esophagus without dysplasia (principal); K29.50 Unspecified chronic gastritis without bleeding; K44.9 Diaphragmatic hernia without obstruction or gangrene; K21.9 Gastro-esophageal reflux disease without esophagitis; I10 Essential (primary) hypertension; K50.90 Crohn's disease, unspecified, without complications; D64.9 Anemia, unspecified; Z87.19 Personal history of other diseases of the digestive system; Z79.899 Other long term (current) drug therapy; Z85.828 Personal history of other malignant neoplasm of skin; Z90.49 Acquired absence of other specified parts of digestive tract; Z90.710 Acquired absence of both cervix and uterus; Z98.890 Other specified postprocedural states; Z72.0 Tobacco use
CPT/HCPCS: 88305; 43239; J2250; J2704

== ENCOUNTER → 2022-02-10 | Outpatient (CLI) | payer MEDICARE ==
--- NOTE | 2022-02-10 09:22 | CTL ---
EXAMINATION TYPE: CT Low Dose Lung DATE OF EXAM ORDERED: 02/10/2022 HISTORY: Long-term tobacco use. Lung cancer screening CT DLP: [address] CTDI: 2.4 mGy Automated exposure control for dose reduction was used. SCREENING VISIT: Baseline COMPARISON: None TECHNIQUE: Low dose computed tomography scan was performed through the chest at 1 mm thick sections a nd reconstructed images in multiple planes at 1 mm and [address] DIAGNOSTIC QUALITY: Satisfactory FINDINGS: LUNG NODULES: None. LUNGS: COPD: Severity: None Fibrosis: Severity: Minimal bibasilar Lymph nodes: None Other findings: None RIGHT PLEURAL SPACE: Effusion: None Calcification: None Thickening: None Pneumothorax: None LEFT PLEURAL SPACE: Effusion: None Calcification: None Thickening: None Pneumothorax: None HEART: Heart Size: Normal Coronary Calcification: Mild Pericardial Effusion: None OTHER FINDINGS: Upper abdomen: Cholecystectomy clips. There is a nonobstructing 4 mm calculus right kidney upper pole level coronal image 172. Bony thorax: [id number] multilevel spurring in the midthoracic spine Supraclavicular region: None Other: Ascending aorta measures up to 4.0 cm in diameter axial image 113 IMPRESSION: No suspicious nodules. CT LUNG RAD AND CT CHEST RECOMMENDATION: Lung-Rad 1 Negative: Continue annual screening with LDCT in 12 months. S Modifier (other clinically significant findings): S Borderline 4.0 cm ascending aortic aneurysm.
--- NOTE | 2022-02-10 18:29 | BD ---
EXAMINATION TYPE: Axial Bone Density DATE OF EXAM: 02/10/2022 COMPARISON: NEW TO DEXA STUDIES, AT [facility]....BASELINE STUDY CLINICAL HISTORY: 66 years year old Female. ICD-10 CODE: M89.9 BONE DISORDER,Z87.891 Height: 63 Weight: 186 FRAX RISK QUESTIONS: Family History (Parent hip fracture): YES History of Fracture in Adulthood: YES Current Tobacco Use: YES RISK FACTORS HISTORY OF: HX OF RT WRIST FX 2018 History of Wrist Fracture: YES, RT, 2019 Family History of Osteoporosis: YES, WITH HIP FXs Active: YES Postmenopausal woman: YES, AT 56 YRS OLD Hyperparathyroidism: NO Adrenal Insufficiency: NO MEDICATIONS: Additional Medications: BP MEDS, REFLUX MEDS, VIT D AND CALCIUM Additional History: HYPERTENSION, REFLUX, EXAM MEASUREMENTS: Bone mineral densitometry was performed using the [facility]. Bone mineral density as measured about the Lumbar spine is: ----- L1-L4(G/cm2): 0.946 T Score Values are as follows: ----- L1: -1.9 ----- L2: -2.6 ----- L3: -1.7 ----- L4: -1.9 ----- L1-L4: -2.0 Bone mineral density BASELINE DEXA STUDY Bone mineral density about the R hip (g/cm2): 0.822 Bone mineral density about the L hip (g/cm2): 0.835 T Score values are as follows: -----R Neck: -1.9 -----L Neck: -2.4 -----R Total: -1.5 -----L Total: -1.4 Bone mineral density BASELINE STUDY FRAX%s: The graph provided illustrates a 34.2% chance for a major osteoporotic fx and a 7.3% chance f or the hips probability for fx in 10 years time. IMPRESSION: Osteopenia (T Score between -2.5 and -1). Note that measurements are bordering on osteoporosis at the left hip. There is slightly increased risk of fracture and the patient may be considered for treatment. Re-Screen 2-5 years. NOTE: T-SCORE=SD OF THE YOUNG ADULT MEAN.
--- NOTE | 2022-02-11 08:28 | MM ---
Reason for Exam: Screening (asymptomatic). Last mammogram was performed 5 year(s) and 0 month(s) ago. Patient History: Menarche at age 13. First Full-Term at age 20. Left ovary removed at age 39. Hysterectomy at age 39. Postmenopausal. Other cancer, age 49. Estrogen for 2 years, 2 months. Risk Values: Lisa 5 year model risk: 1.2%. NCI Lifetime model risk: 4.6%. Prior Study Comparison: 10/10/2003 Bilateral Screening Mammogram, [facility]. 05/29/2008 Bilateral Screening Mammogram, [facility]. 03/09/2017 Bilateral Screening Mammogram, [facility]. Tissue Density: There are scattered fibroglandular densities. Findings: Analyzed By CAD. There is no suspicious group of microcalcifications or new suspicious mass in either breast. Overall Assessment: Negative, BI-RAD 1 Management: Screening Mammogram of both breasts in 1 year. A clinical breast exam by your physician is recommended on an annual basis and results should be correlated with mammographic findings. Electronically signed and approved by: Gerard Roper DO
== END | disposition home or self-care (01) ==
LOC: RADMAMWWP 06:51
PROVIDERS: ATTEND Internal Medicine
DX: Z12.31 Encounter for screening mammogram for malignant neoplasm of breast (principal); Z12.2 Encounter for screening for malignant neoplasm of respiratory organs; M85.89 Other specified disorders of bone density and structure, multiple sites; Z87.891 Personal history of nicotine dependence
CPT/HCPCS: 71271; 77067; 77080

== ENCOUNTER 2023-05-05 06:11 | Day surgery (SDC) | payer MEDICARE ==
[2023-04-30 14:54] VITALS: BMI 30.2
[~2023-05-05 06:11] MED LIST changes: -GLUCAGON 1 MG/ML VIAL IM STA; +LACTATED RINGERS 1,000 ML IV SCH; +LIDOCAINE 1% (10MG/ML) FOR IV START INTRADERMA PRN
[2023-05-05] MEDS ORDERED: LACTATED RINGERS 1,000 ML IV ONE (07:01)
[2023-05-05 07:18] VITALS: TEMP 97.3
[2023-05-05] MEDS ORDERED: LIDOCAINE 2% (PF) 20 MG/ML 5 ML VIAL ONE (07:22)
[2023-05-05] MEDS ORDERED: PROPOFOL 10 MG/ML 20 ML VIAL IV ONE (07:22)
--- NOTE | 2023-05-05 07:49 | P.PCN ---
Date of Procedure: 05/05/23 Procedure(s) Performed: Brief history: Patient is a pleasant 67-year-old white female scheduled for an elective upper endoscopy as well as colonoscopy as a part of evaluation of admitted dysphagia to solids and long-standing history of GERD. She also has long-standing history of Crohn's disease diagnosed 20 years ago and is status post terminal ileal resection 35 years ago. Procedure performed: Esophagogastroduodenoscopy with biopsy and balloon dilation Colonoscopy and snare polypectomy Preoperative diagnosis: Intermittent dysphagia to solids and long-standing history of GERD History of Crohn's disease Anesthesia: MAC Procedure: After informed consent was obtained from the patient was brought into the endoscopy unit and IV sedation was administered by anesthesia under continuous monitoring. Initially upper endoscopy was done. The Olympus GF 160 video endoscope was inserted inserted into the mouth and esophagus intubated without any difficulty and was gradually advanced into the stomach and duodenum and carefully examined. The bulb and second part of the duodenum appeared normal. The scope was then withdrawn into the stomach adequately insufflated with air and upon careful examination the antrum had mild gastritis and biopsies were done from this area. Mucosa body, cardia and fundus appeared normal. The scope was then withdrawn into the esophagus. Under size hiatal hernia noted. The GE junction was located at 30 cm to the incisors. At the GE junction there was a widely patent distal esophageal Schatzki's ring identified. This was dilated using 18-20 mm TTS balloon in a sequential fashion for 60 seconds. The GE junction appeared regular with no erythema erosions or ulcerations. Rest of the esophagus appeared normal. Patient tolerated the procedure well. At this time the patient continued to remain sedation. Initial digital rectal examination was normal. Olympus CF 160 video colonoscope was then inserted into the rectum and gradually advanced to the the right colon with anastomosis was partially visualized and appeared normal. The anastomosis was located at an acute angle and the scope could not be advanced to the anastomosis into the ileum. Mucosa of the transverse colon, descending coloappeared normal. In the distal sigmoid colon at 30 cm from the anal verge there was a 1 cm polyp that was removed by snare polypectomy. Scattered sigmoid diverticulosis seen. Rectum appeared normal. Retroflexion was performed in the rectum and no lesions were noted and the patient tolerated the procedure well. mpression: 1. Upper endoscopy revealed mild antral gastritis, moderate size hiatal hernia, distal esophageal Schatzki's ring status post balloon dilation using 18-20 mm TTS balloon as mentioned above 2. Colonoscopy revealed 1 cm distal sigmoid colon polyp status post-polypectomy and scattered sigmoid diverticulosis. Recommendations: Findings of this examination were discussed with the patient as well as her family. She was advised to follow with the biopsy results. She'll remain on clear liquids for 2 hours.. Continue with omeprazole 20 mg daily and follow antireflux measures. If the biopsy of the colon polyp reveals adenoma she can have a repeat colonoscopy in 3 years.
[2023-05-05 07:57] VITALS: BP 133/74; RESP 16
[2023-05-05 08:17] VITALS: PULSE 73
== END 2023-05-05 08:28 | disposition home or self-care (01) ==
LOC: ORWHC2ENDO 06:11
PROVIDERS: ATTEND Internal Medicine Gastroenterology
DX: K29.50 Unspecified chronic gastritis without bleeding (principal); D12.5 Benign neoplasm of sigmoid colon; K50.90 Crohn's disease, unspecified, without complications; K21.9 Gastro-esophageal reflux disease without esophagitis; I10 Essential (primary) hypertension; F17.200 Nicotine dependence, unspecified, uncomplicated; Z79.811 Long term (current) use of aromatase inhibitors; Z79.899 Other long term (current) drug therapy
CPT/HCPCS: 88305; 45385; 43239; 43249; J2704; J2001; C1726

== ENCOUNTER → 2023-08-04 | Outpatient (CLI) | payer MEDICARE ==
--- NOTE | 2023-08-05 11:05 | MM ---
Reason for Exam: Screening (asymptomatic). Last mammogram was performed 1 year(s) and 5 month(s) ago. Patient History: Menarche at age 13. First Full-Term at age 20. Left ovary removed at age 39. Hysterectomy at age 39. Postmenopausal. Patient has history of breast feeding. Estrogen for 2 years, 2 months. Risk Values: Lisa 5 year model risk: 1.2%. NCI Lifetime model risk: 4.2%. Prior Study Comparison: 05/29/2008 Bilateral Screening Mammogram, [facility]. 03/09/2017 Bilateral Screening Mammogram, [facility]. 02/10/2022 Bilateral MG screening mammo w CAD, [facility]. Tissue Density: The breast tissue is heterogeneously dense. This may lower the sensitivity of mammography. Findings: Analyzed By CAD. There is no suspicious group of microcalcifications or new suspicious mass. Overall Assessment: Negative, BI-RAD 1 Management: Screening Mammogram of both breasts in [address] [facility] will attempt to contact patient to return for supplemental views and ultrasound if indicated. Patient should continue monthly self-breast exams. A clinical breast exam by your physician is recommended on an annual basis. This exam should not preclude additional follow-up of suspicious palpable abnormalities. Note on Lisa scores and lifetime risk: 1. A Lisa score greater than 3% is considered moderate risk. If this is the case, consider specialist referral to assess eligibility for a risk reducing agent. 2. If overall lifetime risk for the development of breast cancer is 20% or higher, the patient may qualify for future screening with alternating mammogram and breast MRI. Electronically signed and approved by: Gerard Roper DO
== END | disposition home or self-care (01) ==
LOC: RADMAMWWP 08:42
PROVIDERS: ATTEND Family Medicine
DX: Z12.31 Encounter for screening mammogram for malignant neoplasm of breast (principal); Z78.0 Asymptomatic menopausal state
CPT/HCPCS: 77063; 77067

== ENCOUNTER → 2023-08-27 | Outpatient (CLI) | payer MEDICARE ==
[2023-08-27 12:35] LABS: African American GFR (CKD) 83 (>60 ml/min/1.73 sqM); Blood Urea Nitrogen 21 mg/dL (7-17); Non-African American GFR(CKD) 72 (>60 ml/min/1.73 sqM)
--- NOTE | 2023-08-27 14:44 | CT ---
Exam: CT Angiography of the Chest. Date: 08/27/2023. Comparison: 09/01/2022. History: Thoracic aortic aneurysm follow-up. Technique: CT examination of the chest was performed without and following the intravenous administra tion of 100 mL of Isovue-370. CT dose lowering techniques were used, to include: automated exposure c ontrol, adjustment for patient size, and/or use of iterative reconstruction. FINDINGS: Mediastinum and Gracia: There is no axillary, mediastinal or hilar lymphadenopathy. Pleural and Pericardial spaces: There are no pleural or pericardial effusions. Upper Abdomen: Partially visualized kidneys show bilateral nonobstructing renal stones which are part ially included. There is a large hiatal hernia. The visualized upper abdomen otherwise appears unrema rkable. Cardiovascular: The ascending thoracic aorta only measures up to approximately 3.6 cm in diameter. Th ere is no evidence of aortic dissection. Pulmonary Artery: There are no filling defects in the pulmonary arteries. Lung Parenchyma and Airways: The lungs are clear. Bones: No fracture or aggressive osseous lesion. IMPRESSION: 1. Ascending aorta only measures up to approximately 3.6 cm in diameter with no significant dilation. 2. No evidence of aortic dissection. 3. No evidence of pulmonary embolism. 4. Large hiatal hernia. 5. Nonobstructing bilateral renal stones.
== END | disposition home or self-care (01) ==
LOC: RADCTMAIN 11:59
PROVIDERS: ATTEND Surgery
DX: I71.20 Thoracic aortic aneurysm, without rupture, unspecified (principal); N20.0 Calculus of kidney; K44.9 Diaphragmatic hernia without obstruction or gangrene
CPT/HCPCS: 82565; 84520; 71275; 36415; Q9967

== ENCOUNTER 2024-11-01 05:03 | Inpatient (IN) | payer MEDICARE ==
--- NOTE | 2024-11-01 05:19 | ED ---
General Adult HPI - General Source: patient Mode of arrival: wheelchair Limitations: no limitations <Manuel Marie - Last Filed: 11/01/24 06:40> <Avelino Burnette - Last Filed: 11/01/24 07:37> - General Chief complaint: Nausea/Vomiting/Diarrhea Stated complaint: Left Side Abdominal Pain, Vomiting - History of Present Illness Initial comments: Dictation was produced using [employer] dictation software. please excuse any grammatical, word or spelling errors. Chief Complaint: 69-year-old female with history of Crohn's presents with left l ower quadrant abdominal pain History of Present Illness: Patient 69-year-old female she was diagnosed with Crohn's at the age of 16 states that for the last 2 weeks she has been having intermittent bouts of left lower quadrant abdominal pain. States that her symptoms are increasing in frequency and intensity. Over the last 48 hours her symptoms have been seemingly persistent. Denies any fever chills night sweats. Patient has history of abdominal surgery secondary to complications of Crohn's disease. The ROS documented in this emergency department record has been reviewed and confirmed by me. Those systems with pertinent positive or negative responses have been documented in the HPI. All other systems are other negative and/or noncontributory. (Manuel Marie) - Related Data Home Medications Medication Instructions Recorded Confirmed Omeprazole [PriLOSEC] 40 mg PO DAILY 03/25/18 05/05/23 Losartan [Cozaar] 50 mg PO DAILY 02/16/20 05/05/23 Ascorbic Acid [Vitamin C] 500 mg PO DAILY 04/30/23 05/05/23 Famotidine [Pepcid] 20 mg PO HS 04/30/23 05/05/23 Multivit with Calcium,Iron,Min 1 each PO DAILY 04/30/23 05/05/23 [Women's Multivitamin] Zinc Gluconate [Zinc] 50 mg PO DAILY 04/30/23 05/05/23 Allergies Allergy/AdvReac Type Severity Reaction Status Date / Time No Known Allergies Allergy Verified 11/01/24 05:05 Review of Systems ROS Other: All systems not noted in ROS Statement are negative. <Manuel Marie - Last Filed: 11/01/24 06:40> ROS Other: All systems not noted in ROS Statement are negative. <Avelino Burnette - Last Filed: 11/01/24 07:37> ROS Statement: Those systems with pertinent positive or pertinent negative responses have been documented in the HPI. Past Medical History Past Medical History: Cancer, GERD/Reflux, Hypertension, Skin Disorder Additional Past Medical History / Comment(s): Chrohn's, hx diverticulitis, cluster headaches, bronchitis, sinus problems, seasonal allergies., nephrolithiasis w/ surgery, skin cancer , vertigo. Eczema, aneurysm, heart murmur, dysphagia, feels bloated. History of Any Multi-Drug Resistant Organisms: None Reported Past Surgical History: Adenoidectomy, Appendectomy, Bowel Resection, Cholecystectomy, Heart Catheterization, Hernia Repair, Hysterectomy, Orthopedic Surgery, Tonsillectomy Additional Past Surgical History / Comment(s): Colonoscopies, EGD, cecum repair, L percutaneous nephrostolithotomy/cystoscopy, abdominal hernia repair with mesh, ORIF R wrist fx, skin cancer removals. Past Anesthesia/Blood Transfusion Reactions: No Reported Reaction Additional Past Anesthesia/Blood Transfusion Reaction / Comment(s): Pt has received blood in past without reaction. Past Psychological History: No Psychological Hx Reported Smoking Status: Former smoker Past Alcohol Use History: Occasional Past Drug Use History: None Reported - Past Family History Father Family Medical History: Cancer Additional Family Medical History / Comment(s): lung cancer Mother Family Medical History: Cancer Additional Family Medical History / Comment(s): brain cancer Son(s) Family Medical History: Cancer Additional Family Medical History / Comment(s): testicular cancer <Manuel Marie - Last Filed: 11/01/24 06:40> General Exam Limitations: no limitations <Manuel Marie - Last Filed: 11/01/24 06:40> - General Exam Comments Initial Comments: PHYSICAL EXAM: General Impression: Alert and oriented x3, not in acute distress HEENT: Normocephalic atraumatic, extra-ocular movements intact, pupils equal and reactive to light bilaterally, mucous membranes moist. Cardiovascular: Heart regular rate and rhythm Chest: Able to complete full sentences, no retractions, no tachypnea Abdomen: abdomen soft, palpatory left lower quadrant abdominal tenderness, non-distended, no organomegaly Musculoskeletal: Pulses present and equal in all extremities, no peripheral edema Motor: no focal deficits noted Neurological: CN II-XII grossly intact, no focal motor or sensory deficits noted Skin: Intact with no visualized rashes Psych: Normal affect and mood (Manuel Marie) Course Vital Signs 11/01/24 11/01/24 11/01/24 05:05 06:08 06:31 Temperature 98.4 F Pulse Rate 107 H 98 87 Respiratory 18 16 16 Rate Blood Pressure 142/81 121/78 125/67 O2 Sat by Pulse 97 100 97 Oximetry Medical Decision Making - Lab Data Result diagrams: 11/01/24 05:25 11/01/24 05:25 <Manuel Marie - Last Filed: 11/01/24 06:40> - Lab Data Result diagrams: 11/01/24 05:25 11/01/24 05:25 <Avelino Burnette - Last Filed: 11/01/24 07:37> - Medical Decision Making Was pt. sent in by a medical professional or institution (, PA, SCREEN STRETCHER, urgent care, hospital, or prison...) When possible be specific @ -[No] Did you speak to anyone other than the patient for history (EMS, parent, family, police, friend...)? What history was obtained from this source @ -[No] Did you review nursing and triage notes (agree or disagree)? Why? @ -[I reviewed and agree with nursing and triage notes] Were old charts reviewed (outside hosp., previous admission, EMS record, old EKG, old radiological studies, urgent care reports/EKG's, prison records)? Report findings @ -[No old charts were reviewed] Differential Diagnosis (chest pain, altered mental status, abdominal pain women, abdominal pain men, vaginal bleeding, musculoskeletal, weakness, fever, dyspnea, syncope, headache, dizziness, GI bleed, back pain, seizure, CVA, palpatations, mental health)? @ -Differential Abdominal Pain Women: Appendicitis, Cholecystitis, diverticulosis, ischemic bowel, pancreatitis, hepatitis, UTI, gastroenteritis, AAA, incarcerated hernia, bowel obstruction, constipation, inflammatory bowel, hepatitis, peptic ulcer disease, splenic infarction, perforated viscus, vulvitis, ovarian torsion, PID, kidney stone, placenta abruption, this is not meant to be an all-inclusive list EKG interpreted by me (3pts min.). @ -[None done] X-rays interpreted by me (1pt min.). @ -[None done] CT interpreted by me (1pt min.). @ -[None done] U/S interpreted by me (1pt. min.). @ -[None done] What testing was considered but not performed or refused? (CT, X-rays, U/S, labs)? Why? @ -[None] What meds were considered but not given or refused? Why? @ -[None] Was smoking cessation discussed for >3mins.? @ -[No] Were there social determinants of health that impacted care today? How? (Homelessness, low income, unemployed, alcoholism, drug addiction, transportation, low edu. Level, literacy, decrease access to med. care, long term, rehab)? @ -[No] Was there de-escalation of care discussed even if they declined (Discuss DNR or withdrawal of care, Hospice)? DNR status @ -[No] What co-morbidities impacted this encounter? (DM, HTN, Smoking, COPD, CAD, Cancer, CVA, ARF, Chemo, Hep., AIDS, mental health diagnosis, sleep apnea, morbid obesity)? @ -Crohn's disease Was patient admitted / discharged? Hospital course, mention meds given and route, prescriptions, significant lab abnormalities, going to OR and other per tinent info. @ -69-year-old female with history of Crohn's disease presents to the ER for worsening left lower quadrant abdominal pain.'s are stable. Labs are within acceptable limits Patient care signed out to Dr. Burnette at 7:[address] imaging and final disposition Did you discuss the management of the patient with other professionals (professionals i.e. , PA, SCREEN STRETCHER, lab, RT, psych nurse, social insurance specialist, nuclear equipment design engineer, teacher, landcare officer, caser)? Give summary @ -[No] Was critical care preformed (if so, how long)? @ -[No] Undiagnosed new problem with uncertain prognosis? @ -[No] Drug Therapy requiring intensive monitoring for toxicity (Heparin, Nitro, Insulin, Cardizem)? @ -[No] Were any procedures done? @ -[No] Diagnosis/symptom? Acute, or Chronic, or Acute on Chronic? Uncomplicated (without systemic symptoms) or Complicated (systemic symptoms)? @ -[default] Side effects of treatment? @ -[No] Exacerbation, Progression, or Severe Exacerbation? @ -[No] Poses a threat to life or bodily function? How? (Chest pain, USA, MT, pneumonia, PE, COPD, DKA, ARF, appy, cholecystitis, CVA, Diverticulitis, Homicidal, Suicidal, threat to staff... and all critical care pts) @ -[No] (Manuel Marie) I interpreted the CT of the abdomen pelvis shows partial small bowel obstruction some inflammation significant for probably Crohn's Was patient admitted / discharged? Hospital course, mention meds given and route, prescriptions, significant lab abnormalities, going to OR and other pertinent info. @ -I went back into reevaluate the patient after the CAT scan showed partial small bowel obstruction. Patient was nauseous and had some pain so I ordered pain medicine steroids and some antiemetics I spoke with sound physicians he agreed to admit the patient Undiagnosed new problem with uncertain prognosis? @ -No Drug Therapy requiring intensive monitoring for toxicity (Heparin, Nitro, Insulin, Cardizem)? @ -No Were any procedures done? @ -No Diagnosis/symptom? @ -Partial small bowel obstruction Acute, or Chronic, or Acute on Chronic? @ -Acute Uncomplicated (without systemic symptoms) or Complicated (systemic symptoms)? @ -Complicated Side effects of treatment? @ -No Exacerbation, Progression, or Severe Exacerbation? @ -No Poses a threat to life or bodily function? How? (Chest pain, USA, MT, pneumonia, PE, COPD, DKA, ARF, appy, cholecystitis, CVA, Diverticulitis, Homicidal, Suicidal, threat to staff... and all critical care pts) @ -No Diagnosis/symptom? @ -Exacerbation Crohn's Acute, or Chronic, or Acute on Chronic? @ -Acute Uncomplicated (without systemic symptoms) or Complicated (systemic symptoms)? @ -Complicated Side effects of treatment? @ -None Exacerbation, Progression, or Severe Exacerbation] @ -No Poses a threat to life or bodily function? @ -No (Avelino Burnette) - Lab Data Lab Results 11/01/24 11/01/24 Range/Units 05:25 05:25 WBC 9.57 (4.50-10.00) 10*3/uL RBC 4.89 (4.10-5.20) 10*6/uL Hgb 15.0 (12.0-15.0) g/dL Hct 43.0 (37.2-46.3) % MCV 87.9 (80.0-97.0) fL MCH 30.7 (27.0-32.0) pg MCHC 34.9 (32.0-37.0) g/dL Plt Count 304 (140-440) 10*3/uL MPV 9.5 (9.5-12.2) fL Immature Gran % (Auto) 0.1 % Neutrophils % 84.2 % Lymphocytes % 9.8 % Monocytes % 4.0 % Eosinophils % 1.6 % Basophils % 0.3 % Immature Gran # 0.01 (0.00-0.04) 10*3/uL Neutrophils # 8.06 H (1.80-7.70) 10*3/uL Lymphocytes # 0.94 (0.90-5.00) 10*3/uL Monocytes # 0.38 (0.20-1.00) 10*3/uL Eosinophils # 0.15 (0.04-0.35) 10*3/uL Basophils # 0.03 (0.00-0.10) 10*3/uL Sodium 137 (137-145) mmol/L Potassium 4.4 (3.5-5.1) mmol/L Chloride 105 (98-107) mmol/L Carbon Dioxide 20 L (22-30) mmol/L Anion Gap 12 mmol/L BUN 26 H (7-17) mg/dL Creatinine 0.77 (0.52-1.04) mg/dL Est GFR (CKD-EPI)AfAm >90 (>60 ml/min/1.73 sqM) Est GFR (CKD-EPI)NonAf 80 (>60 ml/min/1.73 sqM) Glucose 125 H (74-99) mg/dL Calcium 10.3 H (8.4-10.2) mg/dL Total Bilirubin 0.8 (0.2-1.3) mg/dL AST 37 H (14-36) U/L ALT 30 (4-34) U/L Alkaline Phosphatase 139 H (38-126) U/L Total Protein 7.8 (6.3-8.2) g/dL Albumin 4.6 (3.5-5.0) g/dL Lipase 147 (23-300) U/L Disposition <Manuel Marie - Last Filed: 11/01/24 06:40> Time of Disposition: 07:37 <Avelino Burnette - Last Filed: 11/01/24 07:37> Clinical Impression: Partial small bowel obstruction, Exacerbation of Crohn's disease Disposition: ADMITTED IP TO THIS HOSP Referrals: Grey Whitt MD [Primary Care Provider] - 1-2 days
[2024-11-01 05:39] LABS: Basophils # (A) 0.03 10*3/uL (0.00-0.10); Basophils % (A) 0.3 %; Eosinophils # (A) 0.15 10*3/uL (0.04-0.35); Eosinophils % (A) 1.6 %; Lymphocytes # (A) 0.94 10*3/uL (0.90-5.00); Lymphocytes % (A) 9.8 %; MCH 30.7 pg (27.0-32.0); MCHC 34.9 g/dL (32.0-37.0); MCV 87.9 fL (80.0-97.0); Mean Platelet Volume 9.5 fL (9.5-12.2); Monocytes # (A) 0.38 10*3/uL (0.20-1.00); Neutrophils # (A) 8.06 10*3/uL (1.80-7.70); Neutrophils % (A) 84.2 %; Platelet Count 304 10*3/uL (140-440); RBC 4.89 10*6/uL (4.10-5.20); RDW 13.3 % (11.5-14.5); WBC 9.57 10*3/uL (4.50-10.00)
[2024-11-01 05:57] LABS: ALT 30 U/L (4-34); AST 37 U/L (14-36); African American GFR (CKD) >90 (>60 ml/min/1.73 sqM); Albumin 4.6 g/dL (3.5-5.0); Alkaline Phosphatase 139 U/L (38-126); Anion Gap 12 mmol/L; Blood Urea Nitrogen 26 mg/dL (7-17); Calcium 10.3 mg/dL (8.4-10.2); Carbon Dioxide 20 mmol/L (22-30); Chloride 105 mmol/L (98-107); Glucose 125 mg/dL (74-99); Lipase 147 U/L (23-300); Non-African American GFR(CKD) 80 (>60 ml/min/1.73 sqM); Potassium 4.4 mmol/L (3.5-5.1); Sodium 137 mmol/L (137-145); Total Bilirubin 0.8 mg/dL (0.2-1.3); Total Protein 7.8 g/dL (6.3-8.2)
[2024-11-01] MEDS: MORPHINE SULFATE 4 MG/ML SYRINGE IVP PRN (06:08)
--- NOTE | 2024-11-01 07:07 | CT ---
EXAMINATION TYPE: CT abdomen pelvis w con CT DLP: 1188.7 mGycm, Automated exposure control for dose reduction was used. DATE OF EXAM: 11/01/2024 6:26 AM COMPARISON: MR Enterography 11/22/2018, CT abdomen and pelvis 09/02/2018 CLINICAL INDICATION:Female, 69 years old with history of LLQ abd pain, hx of crohns; TECHNIQUE: Standard CT of the abdomen and pelvis following the administration of 100 cc of Isovue 3 00 IV contrast material. Coronal and sagittal reformats were performed. FINDINGS: LOWER CHEST: The visualized lung bases are clear. ABDOMEN LIVER: Unremarkable GALLBLADDER AND BILE DUCTS: Gallbladder is surgically absent with mild intrahepatic and extra hepatic biliary dilatation likely physiologic and a postcholecystectomy change. No evidence of choledocholit hiasis. PANCREAS: Unremarkable. SPLEEN: Unremarkable. ADRENAL GLANDS: Unremarkable. KIDNEYS AND URETERS: No evidence of hydronephrosis. Kidneys enhance symmetrically. Right renal 1.8 cm simple cyst. Additional bilateral subcentimeter cortical hypodensities which likely represent renal cysts. No follow-up recommended. Nonobstructive right renal upper pole 4 mm calculus. Nonobstructive left lower pole submillimeter calculus. Nonobstructive left renal pelvis 9 mm calculus. Contrast is d emonstrated within both collecting systems and proximal ureters on the delayed phase. PELVIS BLADDER: Under distended, limiting evaluation. REPRODUCTIVE: The uterus is surgically absent. ABDOMEN & PELVIS STOMACH AND BOWEL: Large hiatal hernia containing approximately 50% of the stomach intrathoracic.Dist al colonic diverticulosis without evidence for acute diverticulitis. Chronic circumferential wall thi ckening of the sigmoid colon. Submucosal fat deposition within the terminal ileum with mild wall thic kening measuring up to 5 mm. No surrounding fat stranding. Fluid filled dilated distal small bowel me asuring up to 3.3 cm with a focal short segment transition point involving the distal ileum within th e anterior abdomen (series 201, image 62). There is upstream dilatation. No pneumatosis. No hyperemic bowel identified. PERITONEUM: No evidence of pneumoperitoneum. Trace fluid within the lower mesentery. VASCULATURE: Minimal atherosclerotic calcifications are present throughout the abdominal aorta and it s branches. No evidence of aortic aneurysm. MUSCULOSKELETAL: No acute osseous abnormalities. Degenerative changes of the pubic symphysis. Multile jesica degenerative disc disease which is most pronounced at L5-S1 and L1-L2. LYMPH NODES: No evidence for lymphadenopathy. SOFT TISSUE/ABDOMINAL WALL: Surgical changes of the lower anterior abdominal wall. Small fat filled r ight inguinal hernia. IMPRESSION: 1. Findings of Crohn's disease with focal short segment stricture involving the ileum within the ant erior abdomen. Results in partial small bowel obstruction. 2. Distal chronic colonic diverticulosis without evidence for acute diverticulitis. 3. Large hiatal hernia with approximately 50% of the stomach intrathoracic. 4. Bilateral renal calculi with a 9 mm calculus within the left renal pelvis. [facility], , 11/01/2024 7:05 AM
[2024-11-01] MEDS ORDERED: ONDANSETRON 4 MG/2 ML VIAL IVP PRN (07:40)
[2024-11-01] MEDS ORDERED: HYDROmorphone 0.5 MG/0.5 ML SYRINGE IVP PRN (07:41)
[2024-11-01] MEDS: SODIUM CHLORIDE 0.9% 1,000 ML IV ONE (08:06)
[2024-11-01] MEDS: methylPREDNISolone SOD SUCCI 125 MG/2 ML VIAL IV STA (08:07)
[2024-11-01] MEDS: ONDANSETRON 4 MG/2 ML VIAL IVP STA (08:07)
[2024-11-01] MEDS: HYDROmorphone 0.5 MG/0.5 ML SYRINGE IVP STA (08:07)
[2024-11-01] MEDS ORDERED: DEXTROSE 50% SYRINGE 50 ML IVP PRN ×2 (08:11)
[2024-11-01] MEDS: PANTOPRAZOLE 40 MG/10 ML VIAL IVP SCH (11:22)
--- NOTE | 2024-11-01 11:25 | P.HPIM ---
History of Present Illness H&P Date: 11/01/24 Chief Complaint: Abdominal Pain History of Presenting Illness: Patient is a very pleasant 69-year-old female with a past medical history of Crohn's disease follows Dr. Garcia, hypertension, GERD, cluster headaches, and skin cancer status post removal. Presented to the emergency department with a chief complaint of left lower quadrant abdominal pain. Patient reports symptoms began approximately 2 weeks ago and were initially intermittent but have pro gressively worsened in intensity and frequency and have been persistent over the past 48 hours. Patient does report experiencing nausea and vomiting prior to arrival but reports nausea and vomiting has fully subsided since arrival to our facility with last episode of emesis pain just prior to arrival. Denies having any hematemesis/coffee-ground emesis. She reports last passing flatus being yesterday evening and states last bowel movement was 2 days ago. Patient denies having any fevers, chills, diaphoresis, headache lightheadedness, dizziness, chest pain, palpitations, shortness of breath, or experiencing any difficulties with her changes in her urinary function. Patient does report following with systems librarian, Dr. Garcia and states history of bowel resection 40 years ago. Upon arrival to our facility, patient underwent evaluation in the emergency department. Vital signs upon arrival show blood pressure 142/81, heart rate 107, respiratory rate 18, temp 98.4 F, and SpO2 of 97% on room air. Labs completed and reviewed. CBC unremarkable. BMP showing bicarb of 28 and elevated BUN of 26. Blood glucose was 125. Calcium was elevated at 10.3. Liver profile showing elevated AST of 37 and alkaline phosphatase of 139 otherwise normal findings. Lipase normal findings at 147. CT abdomen and pelvis was completed with contrast showing findings of Crohn's disease with foca l short segment stricture involving the ileum within the anterior abdomen resulting in partial small bowel obstruction and distal chronic colonic diverticulosis without evidence for acute diverticulitis and large hiatal hernia with approximately 50% of the stomach intrathoracic region and bilateral renal calculi with a 9 mm calculus in the left renal pelvis with no evidence of hydronephrosis. Patient admitted under our services with consultation to gastroenterology and general surgery. Review of systems: Pertinent positives and negatives as discussed in HPI, a complete review of systems was performed and all other systems are negative. Physical exam: Vital signs reviewed and stable. General: Nontoxic, no distress and appears stated age. Derm: Skin warm and dry, normal coloration for ethnicity. Head: Atraumatic, normocephalic and symmetric. Eyes: EOM's intact, no lid lag, and anicteric sclera Mouth: no lip lesions, mucus membranes moist Cardiovascular: regular rate and rhythm with normal S1S2, no murmur, positive posterior tibial pulses bilaterally, and cap refill < 2 seconds. Lungs: Respirations even, regular, and unlabored on room air. Lungs CTA bilaterally, no rhonchi, no rales, no wheezing, and no accessory muscle usage. Abdominal: soft, tenderness upon palpation to left upper and lower quadrant worse in left lower quadrant, no guarding, no appreciable organomegaly Ext: ROM intact. No gross muscle atrophy, no edema, no contractures Neuro: Speech clear, face symmetrical and CN II-XII grossly intact with no noted focal neuro deficits Psych: Alert and oriented to person, place, time, and situation. Appropriate and pleasant affect. Assessment and Plan of Care: Crohn's Exacerbation Partial small bowel obstruction History of small bowel resection, 40 years ago - Gastroenterology consulted, discussed case with gastroenterology SCHOOL TREASURER. - General Surgery consulted - Order placed for NG tube, to low intermittent suction. - Strict NPO, diet only to be advanced per general surgery recommendations - Symptomatic care and pain management with Zofran 4 mg IVP every 6 hours as needed for nausea or vomiting and Dilaudid 0.5 mg IVP every 4 hours as needed for pain. - Patient received Solu-Medrol 125 mg IVP x 1 dose this morning and to be placed on maintenance steroids dose per recommendations of gastroenterology. - Continue gentle IV fluid hydration with 0.9% normal saline at 100 cc/h. - Patient placed on glycemic protocol with Accu-Cheks every 6 hours while NPO. - GI prophylaxis with Protonix 40 mg IVP daily Hypertension -Monitor vital signs and continue daily medication regimen with losartan 75 mg daily. Data and imaging reviewed: -As stated above in HPI The patient is admitted with an anticipated greater than 2 midnight stay for evaluation of Crohn's exacerbation with partial small bowel obstruction CODE STATUS: Full code DVT prophylaxis: Lovenox Discussed with: Patient, RN, ED physician, and gastroenterology SCHOOL TREASURER Anticipated discharge date: Pending clinical course Anticipated discharge place: Home Patient was seen independently by Nurse Practitioner. This document was prepared using [employer] dictation software. Please allow for errors in case worker while rare they do occur. Tremaine Weiner NP rendered care for this patient independently, reviewed the findings and plan as documented in the note above and agree with plan. I did not physically speak with or examine the patient on this date. Past Medical History Past Medical History: Cancer, GERD/Reflux, Hypertension, Skin Disorder Additional Past Medical History / Comment(s): Chrohn's, hx diverticulitis, cl uster headaches, bronchitis, sinus problems, seasonal allergies., nephrolithiasis w/ surgery, skin cancer , vertigo. Eczema, aneurysm, heart murmur, dysphagia, feels bloated. History of Any Multi-Drug Resistant Organisms: None Reported Past Surgical History: Adenoidectomy, Appendectomy, Bowel Resection, Cholecystectomy, Heart Catheterization, Hernia Repair, Hysterectomy, Orthopedic Surgery, Tonsillectomy Additional Past Surgical History / Comment(s): Colonoscopies, EGD, cecum repair, L percutaneous nephrostolithotomy/cystoscopy, abdominal hernia repair with mesh, ORIF R wrist fx, skin cancer removals. Past Anesthesia/Blood Transfusion Reactions: No Reported Reaction Additional Past Anesthesia/Blood Transfusion Reaction / Comment(s): Pt has received blood in past without reaction. Past Psychological History: No Psychological Hx Reported Smoking Status: Former smoker Past Alcohol Use History: Occasional Past Drug Use History: None Reported - Past Family History Father Family Medical History: Cancer Additional Family Medical History / Comment(s): lung cancer Mother Family Medical History: Cancer Additional Family Medical History / Comment(s): brain cancer Son(s) Family Medical History: Cancer Additional Family Medical History / Comment(s): testicular cancer Medications and Allergies Home Medications Medication Instructions Recorded Confirmed Type Losartan [Cozaar] 75 mg PO DAILY 02/16/20 11/01/24 History Famotidine [Pepcid] 20 mg PO HS 04/30/23 11/01/24 History Multivit with Calcium,Iron,Min 1 tab PO DAILY 04/30/23 11/01/24 History [Women's Multivitamin] Calcium Carbonate/Vitamin D3 2 tab PO DAILY 11/01/24 11/01/24 History [Calcium 500-Vit D3 5 Mcg (200 Iu)] Omeprazole [PriLOSEC] 40 mg PO DAILY 11/01/24 11/01/24 History Allergies Allergy/AdvReac Type Severity Reaction Status Date / Time No Known Allergies Allergy Verified 11/01/24 08:16 Physical Exam Vitals: Vital Signs Temp Pulse Resp BP Pulse Ox 11/01/24 06:31 87 16 125/67 97 11/01/24 06:08 98 16 121/78 100 11/01/24 05:05 98.4 F 107 H 18 142/81 97 Intake and Output 10/31/24 11/01/24 11/01/24 22:59 06:59 14:59 Other: Weight 81.647 kg Results CBC & Chem 7: 11/01/24 05:25 11/01/24 05:25 Labs: Abnormal Lab Results - Last 24 Hours (Table) 11/01/24 11/01/24 Range/Units 05:25 05:25 Neutrophils # 8.06 H (1.80-7.70) 10*3/uL Carbon Dioxide 20 L (22-30) mmol/L BUN 26 H (7-17) mg/dL Glucose 125 H (74-99) mg/dL Calcium 10.3 H (8.4-10.2) mg/dL AST 37 H (14-36) U/L Alkaline Phosphatase 139 H (38-126) U/L
[2024-11-01 12:11] LABS: Glucose,Whole Blood 168 mg/dL (70-110)
--- NOTE | 2024-11-01 13:22 | P.CONS ---
History of Present Illness - Reason for Consult Consult date: 11/01/24 Crohn's disease, partial small bowel obstruction Requesting physician: Avelino Burnette - Chief Complaint Abdominal pain, nausea and vomiting - History of Present Illness This a pleasant 69-year-old female with a history of Crohn's disease diagnosed at age 16 with history of terminal ileum resection over 30 years ago who presented to the emergency department with complaints of abdominal pain with vomiting. Patient states pain started intermittently about 2 weeks ago mostly on the left side. Yesterday afternoon she ate lunch following lunch she vomited was feeling dizzy but later on felt better. At dinnertime she tried to eat couple pieces of toast by 4 AM she was vomiting that up and having left sided abdominal pain. She came in for further evaluation. States she has not had a bowel movement for 2 to 3 days. Normal bowel movement is 1-2 loose stools daily . She denies any blood in her stool. She is not taking any medications for her Crohn's disease. Last EGD and colonoscopy 05/10/2023. Upper endoscopy with findings of mild antral gastritis, moderate size hiatal hernia, distal esophageal scotch gaze ring status post balloon dilation. Colonoscopy revealed distal sigmoid colon polyp status post polypectomy and scattered sigmoid diverticulosis. Review of Systems REVIEW OF SYSTEMS: CARDIOPULMONARY: No chest pain or shortness of breath. Gastrointestinal: Abdominal pain. Nausea with vomiting. No bowel movement in 2 to 3 days. No hematemesis, coffee-ground emesis. No rectal bleeding, or melena. GENITOURINARY: No dysuria or hematuria. MUSCULOSKELETAL: Reports normal range of motion. SKIN: No rashes. No jaundice. ENDOCRINE: No chills, fevers. No excessive weight gain or loss. No polydipsia or polyuria. PSYCHIATRIC: Unremarkable. NEUROLOGY: No change in mental status. Denies dizziness, headache. ENT: Vision unremarkable. CONSTITUTIONAL: No recent weight loss. No fever, chills, night sweats. Past Medical History Past Medical History: Cancer, GERD/Reflux, Hypertension, Skin Disorder Additional Past Medical History / Comment(s): Chrohn's, hx diverticulitis, cluster headaches, bronchitis, sinus problems, seasonal allergies., nephroli thiasis w/ surgery, skin cancer , vertigo. Eczema, aneurysm, heart murmurur, deviated septum History of Any Multi-Drug Resistant Organisms: None Reported Past Surgical History: Adenoidectomy, Appendectomy, Bowel Resection, Cholecystectomy, Heart Catheterization, Hernia Repair, Hysterectomy, Orthopedic Surgery, Tonsillectomy Additional Past Surgical History / Comment(s): Colonoscopies, EGD, cecum repair, L percutaneous nephrostolithotomy/cystoscopy, abdominal hernia repair with mesh, ORIF R wrist fx, skin cancer removals. Past Anesthesia/Blood Transfusion Reactions: No Reported Reaction Additional Past Anesthesia/Blood Transfusion Reaction / Comm: Pt has received bl ood in past without reaction. Past Psychological History: No Psychological Hx Reported Smoking Status: Current every day smoker Past Alcohol Use History: Occasional Additional Past Alcohol Use History / Comment(s): Pt states she has smoked on and off since 1982, patient smokes about 4 cigarettes/day Past Drug Use History: None Reported - Past Family History Father Family Medical History: Cancer Additional Family Medical History / Comment(s): lung cancer Mother Family Medical History: Cancer Additional Family Medical History / Comment(s): brain cancer Son(s) Family Medical History: Cancer Additional Family Medical History / Comment(s): testicular cancer Medications and Allergies Home Medications Medication Instructions Recorded Confirmed Type Losartan [Cozaar] 75 mg PO DAILY 02/16/20 11/01/24 History Famotidine [Pepcid] 20 mg PO HS 04/30/23 11/01/24 History Multivit with Calcium,Iron,Min 1 tab PO DAILY 04/30/23 11/01/24 History [Women's Multivitamin] Calcium Carbonate/Vitamin D3 2 tab PO DAILY 11/01/24 11/01/24 History [Calcium 500-Vit D3 5 Mcg (200 Iu)] Omeprazole [PriLOSEC] 40 mg PO DAILY 11/01/24 11/01/24 History Allergies Allergy/AdvReac Type Severity Reaction Status Date / Time No Known Allergies Allergy Verified 11/01/24 08:16 Physical Exam Vitals: Vital Signs Temp Pulse Pulse Resp BP BP Pulse Ox 11/01/24 12:43 98.2 F 79 16 116/71 92 L 11/01/24 10:00 98.0 F 80 16 124/76 95 11/01/24 06:31 87 16 125/67 97 11/01/24 06:08 98 16 121/78 100 11/01/24 05:05 98.4 F 107 H 18 142/81 97 Intake and Output 10/31/24 11/01/24 11/01/24 22:59 06:59 14:59 Other: Weight 81.647 kg 81.647 kg General appearance: The patient is alert, oriented, appears in no acute distress. HET: Head is normocephalic and atraumatic. Conjunctiva pink. Sclera anicteric. Neck: Supple without lymphadenopathy. Trachea midline. Heart: Regular. Lungs: Equal expansion, normal respiratory effort. Abdomen: Soft, left-sided abdominal tenderness, nondistended. Skin: No rashes. No jaundice. Extremities: Normal skin color and turgor. No pedal edema. Neurological: No focal deficits. Alert and oriented x3. Results CBC & Chem 7: 11/01/24 05:25 11/01/24 05:25 Labs: Abnormal Lab Results - Last 24 Hours (Table) 11/01/24 11/01/24 11/01/24 Range/Units 05:25 05:25 12:09 Neutrophils # 8.06 H (1.80-7.70) 10*3/uL Carbon Dioxide 20 L (22-30) mmol/L BUN 26 H (7-17) mg/dL Glucose 125 H (74-99) mg/dL POC Glucose (mg/dL) 168 H (70-110) mg/dL Calcium 10.3 H (8.4-10.2) mg/dL AST 37 H (14-36) U/L Alkaline Phosphatase 139 H (38-126) U/L Comments: CT abdomen pelvis with contrast reports findings of Crohn's disease with focal short segment stricture involving the ileum within the anterior abdomen. Results in partial small bowel obstruction. Distal chronic colonic diverticulosis without evidence for acute diverticulitis. Large hiatal hernia with approximately 50% of the stomach intrathoracic. Bilateral renal calculi with a 9 mm calculus within the left renal pelvis. Assessment and Plan (1) Crohns disease Narrative/Plan: 69-year-old female with longstanding history of controlled Crohn's disease not on any medication with history of terminal ileum resection over 35 years ago presenting with left-sided abdominal pain with nausea and vomiting and no bowel movement for 2 [address] evidence of Crohn's disease with focal short segment stricture involving ileum within the anterior abdomen resulting in a small bowel obstruction. Keep n.p.o. for now. Add Solu-Medrol 20 mg every 8 hours. CRP sed rate ordered. Current Visit: No Status: Acute Code(s): K50.90 - CROHN'S DISEASE, UNSPECIFIED, WITHOUT COMPLICATIONS SNOMED Code(s): 92533065 (2) Partial small bowel obstruction Narrative/Plan: General surgery following, keep NPO. Current Visit: Yes Status: Acute Code(s): K56.600 - PARTIAL INTESTINAL OBSTRUCTION, UNSPECIFIED TO CAUSE SNOMED Code(s): 955228938 Plan: 1. Continue symptomatic and supportive care 2. Keep n.p.o. for now 3. Pain medication as needed 4. CRP, sed rate ordered 5. Start IV Solu-Medrol 20 mg every 8 hours 6. General surgery on consultation, appreciate recommendations 7. Will order abdominal x-ray to evaluate for improvement of small bowel obstruction 8. If improvement of small bowel obstruction on x-ray, patient can be started on clear liquid diet Thank you for this consultation, we will continue to follow. Dr. Tania Garcia I agree with the dictator's note, documented as a scribe by Radha Stack.
--- NOTE | 2024-11-01 13:49 | P.GSCN ---
History of Present Illness Consult date: 11/01/24 History of present illness: CHIEF COMPLAINT: Abdominal pain HISTORY OF PRESENT ILLNESS: This is a 69-year-old female with a known history of Crohn's that was diagnosed at age 16. About 40 years ago she did require a bowel resection due to her Crohn's causing a bowel obstruction. And she also had a another bowel obstruction that was treated conservatively several years ago. Patient reports it has been about 2 days since her last bowel movement. She has been having abdominal pain more so on the left side of the abdomen for the last couple of weeks. She has passed a small amount of flatus today. CT scan abdomen pelvis had reported Crohn's disease with a focal short segment stricture involving the ileum within the anterior abdomen. Results in partial small bowel obstruction. GI service was consulted for her Crohn's exacerbation and they have started her on IV steroids. Surgical service consulted in regards to Crohn's with small bowel obstruction. Patient reports her nausea and vomiting have resolved. Her abdominal bloating is also improved since yesterday. Her other abdominal surgeries include appendectomy, cholecystectomy, hernia repair with mesh, hysterectomy. PAST MEDICAL HISTORY: See below PAST SURGICAL HISTORY: See below MEDICATIONS: See below ALLERGIES: See below SOCIAL HISTORY: No illicit drug use. REVIEW OF SYSTEMS: CONSTITUTIONAL: Denies fever or chills. HEENT: Denies blurred vision, vision changes, or eye pain. Denies hemoptysis CARDIOVASCULAR: Denies chest pain or pressure. RESPIRATORY: No shortness of breath. GASTROINTESTINAL: See HPI for pertinent findings HEMATOLOGIC: Denies bleeding disorders. GENITOURINARY: Denies any blood in urine or increased urinary frequency. SKIN: Denies pruitis. Denies rash. PHYSICAL EXAM: VITAL SIGNS: Reviewed GENERAL: Well-developed in no acute distress. HEENT: No sclera icterus. Extraocular movements grossly intact. Moist buccal mucosa. Head is atraumatic, normocephalic. No nasal drainage. ABDOMEN: Soft. Mildly distended. Tenderness palpation in the epigastric area and umbilicus NEUROLOGIC: Alert and oriented. Cranial nerves II through XII grossly intact. LABORATORY DATA: WBCs 4.57 Hgb 15 platelets 304 Sodium 137 potassium 4.4 creatinine 0.77 IMAGING: CT scan abdomen pelvis reports findings of Crohn's disease with focal short segment stricture involving the ileum within the anterior abdomen results and partial small bowel obstruction. Distal chronic colonic diverticulosis. Large hiatal hernia with approximately 50% of the stomach intrathoracic. Bilateral renal calculi with 9 mm calculus in the left renal pelvis. ASSESSMENT: 1. Crohn's exacerbation 2. Partial small bowel obstruction secondary to Crohn's disease and stricture. CT scan reports Crohn's disease with focal short segment stricture involving the ileum within the anterior abdomen results and a partial small bowel obstruction. 3. Large hiatal hernia with approximately 50% of the stomach intrathoracic PLAN: - Agree with IV steroids per GI service - Keep patient n.p.o. except ice chips for now - Encourage patient to ambulate - If patient has increase in nausea, vomiting or abdominal pain may need to place NG tube. Will monitor without NG tube at this time - Continue to monitor Physician Sole Filler note has been reviewed by physician. Signing provider agrees with the documented findings, assessment, and plan of care. Attestation Patient seen and examined at bedside. Presented with chief complaint of abdominal pain. She has known history of Crohn's disease that was diagnosed 50 years ago. She is not on any baseline treatment for this and does follow with gastroenterology. She has had issues in the past with small bowel obstruction secondary to Crohn's disease. Currently on CT of the abdomen pelvis there is a short segment stricture involving the ileum creating a partial obstruction. GI consult has been placed. Patient was started on IV steroids. Keep patient n.p.o. until further bowel function. If continued nausea or vomiting episodes will require nasogastric tube, however on exam, patient states she is feeling better and has had 2 small episodes of flatus. Continue to increase activity. Further recommendations based on patient's clinical progress. Byron Davis DO Past Medical History Past Medical History: Cancer, GERD/Reflux, Hypertension, Skin Disorder Additional Past Medical History / Comment(s): Chrohn's, hx diverticulitis, cluster headaches, bronchitis, sinus problems, seasonal allergies., nephrolithiasis w/ surgery, skin cancer , vertigo. Eczema, aneurysm, heart murmur, dysphagia, feels bloated. History of Any Multi-Drug Resistant Organisms: None Reported Past Surgical History: Adenoidectomy, Appendectomy, Bowel Resection, Cholecystectomy, Heart Catheterization, Hernia Repair, Hysterectomy, Orthopedic Surgery, Tonsillectomy Additional Past Surgical History / Comment(s): Colonoscopies, EGD, cecum repair, L percutaneous nephrostolithotomy/cystoscopy, abdominal hernia repair with mesh, ORIF R wrist fx, skin cancer removals. Past Anesthesia/Blood Transfusion Reactions: No Reported Reaction Additional Past Anesthesia/Blood Transfusion Reaction / Comm: Pt has received blood in past without reaction. Past Psychological History: No Psychological Hx Reported Smoking Status: Former smoker Past Alcohol Use History: Occasional Past Drug Use History: None Reported - Past Family History Father Family Medical History: Cancer Additional Family Medical History / Comment(s): lung cancer Mother Family Medical History: Cancer Additional Family Medical History / Comment(s): brain cancer Son(s) Family Medical History: Cancer Additional Family Medical History / Comment(s): testicular cancer Medications and Allergies Home Medications Medication Instructions Recorded Confirmed Type Losartan [Cozaar] 75 mg PO DAILY 02/16/20 11/01/24 History Famotidine [Pepcid] 20 mg PO HS 04/30/23 11/01/24 History Multivit with Calcium,Iron,Min 1 tab PO DAILY 04/30/23 11/01/24 History [Women's Multivitamin] Calcium Carbonate/Vitamin D3 2 tab PO DAILY 11/01/24 11/01/24 History [Calcium 500-Vit D3 5 Mcg (200 Iu)] Omeprazole [PriLOSEC] 40 mg PO DAILY 11/01/24 11/01/24 History Allergies Allergy/AdvReac Type Severity Reaction Status Date / Time No Known Allergies Allergy Verified 11/01/24 08:16 Surgical - Exam Osteopathic Statement: *. No significant issues noted on an osteopathic structural exam other than those noted in the History and Physical/Consult. Vital Signs Temp Pulse Resp BP Pulse Ox 98.4 F 107 H 18 142/81 97 11/01/24 05:05 11/01/24 05:05 11/01/24 05:05 11/01/24 05:05 11/01/24 05:05 Results - Labs 11/01/24 05:25 11/01/24 05:25 Abnormal Lab Results - Last 24 Hours (Table) 11/01/24 11/01/24 Range/Units 05:25 05:25 Neutrophils # 8.06 H (1.80-7.70) 10*3/uL Carbon Dioxide 20 L (22-30) mmol/L BUN 26 H (7-17) mg/dL Glucose 125 H (74-99) mg/dL Calcium 10.3 H (8.4-10.2) mg/dL AST 37 H (14-36) U/L Alkaline Phosphatase 139 H (38-126) U/L Diabetes panel 11/01/24 Range/Units 05:25 Sodium 137 (137-145) mmol/L Potassium 4.4 (3.5-5.1) mmol/L Chloride 105 (98-107) mmol/L Carbon Dioxide 20 L (22-30) mmol/L BUN 26 H (7-17) mg/dL Creatinine 0.77 (0.52-1.04) mg/dL Glucose 125 H (74-99) mg/dL Calcium 10.3 H (8.4-10.2) mg/dL AST 37 H (14-36) U/L ALT 30 (4-34) U/L Alkaline Phosphatase 139 H (38-126) U/L Total Protein 7.8 (6.3-8.2) g/dL Albumin 4.6 (3.5-5.0) g/dL Calcium panel 11/01/24 Range/Units 05:25 Calcium 10.3 H (8.4-10.2) mg/dL Albumin 4.6 (3.5-5.0) g/dL Pituitary panel 11/01/24 Range/Units 05:25 Sodium 137 (137-145) mmol/L Potassium 4.4 (3.5-5.1) mmol/L Chloride 105 (98-107) mmol/L Carbon Dioxide 20 L (22-30) mmol/L BUN 26 H (7-17) mg/dL Creatinine 0.77 (0.52-1.04) mg/dL Glucose 125 H (74-99) mg/dL Calcium 10.3 H (8.4-10.2) mg/dL Adrenal panel 11/01/24 Range/Units 05:25 Sodium 137 (137-145) mmol/L Potassium 4.4 (3.5-5.1) mmol/L Chloride 105 (98-107) mmol/L Carbon Dioxide 20 L (22-30) mmol/L BUN 26 H (7-17) mg/dL Creatinine 0.77 (0.52-1.04) mg/dL Glucose 125 H (74-99) mg/dL Calcium 10.3 H (8.4-10.2) mg/dL Total Bilirubin 0.8 (0.2-1.3) mg/dL AST 37 H (14-36) U/L ALT 30 (4-34) U/L Alkaline Phosphatase 139 H (38-126) U/L Total Protein 7.8 (6.3-8.2) g/dL Albumin 4.6 (3.5-5.0) g/dL
--- NOTE | 2024-11-01 14:28 | XR ---
EXAMINATION TYPE: XR abdomen 1V DATE OF EXAM: 11/01/2024 2:12 PM COMPARISON: CT same day. CLINICAL INDICATION: Female, 69 years old with history of Small bowel obstruction; [facility] TECHNIQUE: One radiographic view of the abdomen was obtained. FINDINGS: The bowel gas pattern is nonspecific without dilated loops of small or large bowel. . Fecal material and gas are demonstrated throughout the colon and rectum. There is no evidence for organome vitaliy or pneumoperitoneum. No acute osseous process. No abnormal calcifications are present. Upper q uadrant cholecystectomy clips. Calculi seen on CT same day calculus in the left renal pelvises poorly visualized due to overlapping feces. There is excreted IV contrast in the collecting system. IMPRESSION: 1. Excreted IV contrast in the urinary collecting system limiting evaluation of the calculi. 2. Nonspecific bowel gas pattern without radiographic evidence for acute process. [facility], , 11/01/2024 2:26 PM
[2024-11-01] MEDS: ACETAMINOPHEN TAB 325 MG TAB PO PRN (16:38)
[2024-11-01] MEDS: methylPREDNISolone SOD SUCCI 40 MG/ML 1 ML VIAL IV SCH (16:39)
[2024-11-01 17:05] LABS: Glucose,Whole Blood 132 mg/dL (70-110)
[2024-11-02 00:22] LABS: Glucose,Whole Blood 128 mg/dL (70-110)
[2024-11-02 06:27] LABS: Glucose,Whole Blood 115 mg/dL (70-110)
[2024-11-02] MEDS: ENOXAPARIN 40 MG/0.4 ML SYRINGE SQ SCH (08:01)
[2024-11-02] MEDS: LOSARTAN 50 MG TAB PO SCH (08:01)
[2024-11-02 08:21] LABS: HCT 37.4 % (37.2-46.3); HGB 12.4 g/dL (12.0-15.0); MCHC 33.2 g/dL (32.0-37.0); MCV 90.6 fL (80.0-97.0); Mean Platelet Volume 9.7 fL (9.5-12.2); Platelet Count 268 10*3/uL (140-440); RBC 4.13 10*6/uL (4.10-5.20); RDW 13.7 % (11.5-14.5); WBC 11.75 10*3/uL (4.50-10.00)
[2024-11-02 08:33] LABS: ALT 35 U/L (4-34); AST 31 U/L (14-36); African American GFR (CKD) >90 (>60 ml/min/1.73 sqM); Albumin 3.8 g/dL (3.5-5.0); Albumin/Globulin Ratio 1.4; Alkaline Phosphatase 113 U/L (38-126); Anion Gap 6 mmol/L; Blood Urea Nitrogen 28 mg/dL (7-17); Calcium 9.8 mg/dL (8.4-10.2); Carbon Dioxide 24 mmol/L (22-30); Chloride 110 mmol/L (98-107); Globulin 2.8 g/dL; Glucose 125 mg/dL (74-99); Magnesium 2.1 mg/dL (1.6-2.3); Non-African American GFR(CKD) 82 (>60 ml/min/1.73 sqM); Potassium 4.5 mmol/L (3.5-5.1); Sodium 140 mmol/L (137-145); Total Bilirubin 0.8 mg/dL (0.2-1.3); Total Protein 6.6 g/dL (6.3-8.2)
--- NOTE | 2024-11-02 11:18 | P.PN ---
Subjective Progress Note Date: 11/02/24 SURGICAL PROGRESS NOTE CHIEF COMPLAINT: Crohn's exacerbation HISTORY OF PRESENT ILLNESS: Patient reports feeling better. Abdominal pain has resolved. She has had a bowel movement. She is requesting advancement of diet. Afebrile. WBC 11.75. She is receiving steroids. PHYSICAL EXAM: VITAL SIGNS: Reviewed. GENERAL: Well-developed in no acute distress. ABDOMEN: Soft. Nondistended. Nontender. NEUROLOGIC: Alert and oriented. Cranial nerves II through XII grossly intact. ASSESSMENT: 1. Crohn's exacerbation 2. Partial small bowel obstruction secondary to Crohn's disease and stricture. CT scan reports Crohn's disease with focal short segment stricture involving the ileum within the anterior abdomen results and a partial small bowel obstruction. 3. Large hiatal hernia with approximately 50% of the stomach intrathoracic 4. Leukocytosis likely due to steroids PLAN: - Advance diet to clear liquids. Okay for coffee. Diet advancement discussed with GI service. - Steroids per GI service - Continue to monitor Physician Power Plant Superintendent note has been reviewed by physician. Signing provider agrees with the documented findings, assessment, and plan of care. Attestation Patient seen and examined at bedside. Presented with chief complaint of concern for partial small bowel obstruction secondary to Crohn's exacerbation. She did have a bowel movement this morning. Abdominal pain has resolved. Advance to clear liquid diet. Continue steroids per GI service. Appears to be improving. Byron Davis, Objective - Vital Signs Vital signs: Vital Signs Temp 97.9 F 11/02/24 07:16 Pulse 79 11/02/24 07:16 Resp 18 11/02/24 07:16 BP 138/75 11/02/24 07:16 Pulse Ox 99 11/02/24 07:16 FiO2 Intake & Output 11/01/24 11/02/24 11/02/24 18:59 06:59 18:59 Weight 81.647 kg Other: # Voids 3 - Labs CBC & Chem 7: 11/02/24 08:00 11/02/24 08:00 Labs: Abnormal Lab Results - Last 24 Hours (Table) 11/01/24 11/01/24 11/01/24 Range/Units 05:25 12:09 17:04 WBC (4.50-10.00) 10*3/uL ESR 52 H (0-30) mm/Hr Chloride (98-107) mmol/L BUN (7-17) mg/dL Glucose (74-99) mg/dL POC Glucose (mg/dL) 168 H 132 H (70-110) mg/dL ALT (4-34) U/L 11/02/24 11/02/24 11/02/24 Range/Units 00:10 06:25 08:00 WBC 11.75 H (4.50-10.00) 10*3/uL ESR (0-30) mm/Hr Chloride (98-107) mmol/L BUN (7-17) mg/dL Glucose (74-99) mg/dL POC Glucose (mg/dL) 128 H 115 H (70-110) mg/dL ALT (4-34) U/L 11/02/24 Range/Units 08:00 WBC (4.50-10.00) 10*3/uL ESR (0-30) mm/Hr Chloride 110 H (98-107) mmol/L BUN 28 H (7-17) mg/dL Glucose 125 H (74-99) mg/dL POC Glucose (mg/dL) (70-110) mg/dL ALT 35 H (4-34) U/L
[2024-11-02 12:11] LABS: Glucose,Whole Blood 117 mg/dL (70-110)
--- NOTE | 2024-11-02 12:41 | P.PN ---
Subjective Progress Note Date: 11/02/24 Principal diagnosis: Crohn's disease, small bowel obstruction This a pleasant 69-year-old female with a history of Crohn's disease diagnosed at age 16 with history of terminal ileum resection over 30 years ago who presented to the emergency department with complaints of abdominal pain with vomiting. Patient states pain started intermittently about 2 weeks ago mostly on the left side. Yesterday afternoon she ate lunch following lunch she vomited was feeling dizzy but later on felt better. At dinnertime she tried to eat couple pieces of toast by 4 AM she was vomiting that up and having left sided abdominal pain. She came in for further evaluation. States she has not had a bowel movement for 2 to 3 days. Normal bowel movement is 1-2 loose stools daily. She denies any blood in her stool. She is not taking any medications for her Crohn's disease. Last EGD and colonoscopy 05/10/2023. Upper endoscopy with findings of mild antral gastritis, moderate size hiatal hernia, distal esophageal scotch gaze ring status post balloon dilation. Colonoscopy revealed distal sigmoid colon polyp status post polypectomy and scattered sigmoid diverticulosis. 11/02/2024 Patient seen and examined today as a follow-up. She is sitting up in bed and appears comfortable. States abdominal pain has resolved. Patient had a bowel movement. Denies any nausea or vomiting. She has been afebrile. Sed rate was elevated at 52 CRP was normal Objective - Vital Signs Vital signs: Vital Signs Temp 97.9 F 11/02/24 07:16 Pulse 79 11/02/24 07:16 Resp 18 11/02/24 07:16 BP 138/75 11/02/24 07:16 Pulse Ox 99 11/02/24 07:16 FiO2 Intake & Output 11/01/24 11/02/24 11/02/24 18:59 06:59 18:59 Weight 81.647 kg Other: # Voids 3 - Exam General appearance: The patient is alert, oriented, appears in no acute distress. HET: Head is normocephalic and atraumatic. Conjunctiva pink. Sclera anicteric. Neck: Supple without lymphadenopathy. Abdomen: Soft, nontender, nondistended. Extremities: Normal skin color and turgor. No pedal edema Skin: No rashes, no jaundice Neurological: No focal deficits. Alert and oriented. - Labs CBC & Chem 7: 11/02/24 08:00 11/02/24 08:00 Labs: Abnormal Lab Results - Last 24 Hours (Table) 11/01/24 11/01/24 11/01/24 Range/Units 05:25 12:09 17:04 WBC (4.50-10.00) 10*3/uL ESR 52 H (0-30) mm/Hr Chloride (98-107) mmol/L BUN (7-17) mg/dL Glucose (74-99) mg/dL POC Glucose (mg/dL) 168 H 132 H (70-110) mg/dL ALT (4-34) U/L 11/02/24 11/02/24 11/02/24 Range/Units 00:10 06:25 08:00 WBC 11.75 H (4.50-10.00) 10*3/uL ESR (0-30) mm/Hr Chloride (98-107) mmol/L BUN (7-17) mg/dL Glucose (74-99) mg/dL POC Glucose (mg/dL) 128 H 115 H (70-110) mg/dL ALT (4-34) U/L 11/02/24 Range/Units 08:00 WBC (4.50-10.00) 10*3/uL ESR (0-30) mm/Hr Chloride 110 H (98-107) mmol/L BUN 28 H (7-17) mg/dL Glucose 125 H (74-99) mg/dL POC Glucose (mg/dL) (70-110) mg/dL ALT 35 H (4-34) U/L Assessment and Plan (1) Crohns disease Narrative/Plan: 69-year-old female with longstanding history of controlled Crohn's disease not on any medication with history of terminal ileum resection over 35 years ago presenting with left-sided abdominal pain with nausea and vomiting and no bowel movement for 2 [address] evidence of Crohn's disease with focal short segment stricture involving ileum within the anterior abdomen resulting in a small bowel obstruction. Keep n.p.o. for now. Add Solu-Medrol 20 mg every 8 hours. CRP sed rate ordered. Current Visit: No Status: Acute Code(s): K50.90 - CROHN'S DISEASE, UNSPECIFIED, WITHOUT COMPLICATIONS SNOMED Code(s): 03312163 (2) Partial small bowel obstruction Narrative/Plan: General surgery following. Patient had bowel movement, small bowel obstruction resolved. Current Visit: Yes Status: Acute Code(s): K56.600 - PARTIAL INTESTINAL OBSTRUCTION, UNSPECIFIED TO CAUSE SNOMED Code(s): 216538323 Plan: 1. Continue symptomatic and supportive care 2. May start on clear liquid diet, then advance to full liquid diet if tolerated 3. Pain medication as needed 4. Continue IV Solu-Medrol 20 mg every 8 hours, will plan to transition to oral prednisone 40 mg daily taper 5. Continue with recommendations from general surgery 6. Anticipate discharge in next 24 hours Thank you for this consultation, we will continue to follow. Dr. Tania Garcia I agree with the dictator's note, documented as a scribe by Radha Stack.
--- NOTE | 2024-11-02 13:01 | P.PN ---
Subjective Progress Note Date: 11/02/24 Hospital course: Patient is a very pleasant 69-year-old female with a past medical history of Crohn's disease follows Dr. Garcia, hypertension, GERD, cluster headaches, and skin cancer status post removal. Presented to the emergency department with a chief complaint of left lower quadrant abdominal pain. Patient reports symptoms began approximately 2 weeks ago and were initially intermittent but have progressively worsened in intensity and frequency and have been persistent over the past 48 hours. Patient does report experiencing nausea and vomiting prior to arrival but reports nausea and vomiting has fully subsided since arrival to our facility with last episode of emesis pain just prior to arrival. Denies having any hematemesis/coffee-ground emesis. She reports last passing flatus being yesterday evening and states last bowel movement was 2 days ago. Patient denies having any fevers, chills, diaphoresis, headache lightheadedness, dizziness, chest pain, palpitations, shortness of breath, or experiencing any difficulties with her changes in her urinary function. Patient does report following with campaign analyst, Dr. Garcia and states history of bowel resection 40 years ago. Upon arrival to our facility, patient underwent evaluation in the emergency department. Vital signs upon arrival show blood pressure 142/81, heart rate 107, respiratory rate 18, temp 98.4 F, and SpO2 of 97% on room air. Labs completed and reviewed. CBC unremarkable. BMP showing bicarb of 28 and elevated BUN of 26. Blood glucose was 125. Calcium was el evated at 10.3. Liver profile showing elevated AST of 37 and alkaline phosphatase of 139 otherwise normal findings. Lipase normal findings at 147. CT abdomen and pelvis was completed with contrast showing findings of Crohn's disease with focal short segment stricture involving the ileum within the anterior abdomen resulting in partial small bowel obstruction and distal chronic colonic diverticulosis without evidence for acute diverticulitis and large hiatal hernia with approximately 50% of the stomach intrathoracic region and bilateral renal calculi with a 9 mm calculus in the left renal pelvis with no evidence of hydronephrosis. Patient admitted under our services with consultation to gastroenterology and general surgery. Physical exam: Patient seen and fully evaluated at bedside this morning. She reports significant improvement and states barely experienced any abdominal pain. She was nontender upon physical exam denying any pain with palpation. Patient denies any further episodes of nausea or vomiting or any other complaints at thi s. She remains on IV steroids. Reports passing flatus but denies bowel movement. General surgery evaluated advancing diet to clear liquid at this time. Vital signs reviewed and stable. General: Nontoxic, no distress and appears stated age. Derm: Skin warm and dry, normal coloration for ethnicity. Head: Atraumatic, normocephalic and symmetric. Eyes: EOM's intact, no lid lag, and anicteric sclera Mouth: no lip lesions, mucus membranes moist Cardiovascular: regular rate and rhythm with normal S1S2, no murmur, positive posterior tibial pulses bilaterally, and cap refill < 2 seconds. Lungs: Respirations even, regular, and unlabored on room air. Lungs CTA bilaterally, no rhonchi, no rales, no wheezing, and no accessory muscle usage. Abdominal: soft, nontender upon palpation this morning, no guarding, no appreciable organomegaly Ext: ROM intact. No gross muscle atrophy, no edema, no contractures Neuro: Speech clear, face symmetrical and CN II-XII grossly intact with no noted focal neuro deficits Psych: Alert and oriented to person, place, time, and situation. Appropriate and pleasant affect. Assessment and Plan of Care: Crohn's Exacerbation Partial small bowel obstruction History of small bowel resection, 40 years ago - Gastroenterology consulted, discussed case with gastroenterology DIRECTOR CLINICAL INFORMATION SERVICES. - General Surgery following, discussed case with general surgery PA. Diet to be advanced to clear liquids. - Strict NPO, diet only to be advanced per general surgery recommendations - Symptomatic care and pain management with Zofran 4 mg IVP every 6 hours as needed for nausea or vomiting and Dilaudid 0.5 mg IVP every 4 hours as needed for pain. - Patient received Solu-Medrol 125 mg IVP x 1 dose in the ED and to continue Solu-Medrol 20 mg IVP every 8 hours at this time. - Continue gentle IV fluid hydration with 0.9% normal saline at 100 cc/h. - Patient placed on glycemic protocol with Accu-Cheks every 6 hours while NPO. - GI prophylaxis with Protonix 40 mg IVP daily Hypertension -Monitor vital signs and continue daily medication regimen with losartan 75 mg daily. Data and imaging reviewed: -Morning labs reviewed. CBC showing mild leukocytosis with WBC count of 11.75 otherwise normal findings. BMP showing hyperchloremia with chloride at 110 and mild prerenal azotemia with BUN of 28. Blood glucose was 125. Magnesium 2.1. Liver profile showing slightly elevated ALT of 35 otherwise normal findings. -KUB completed and radiology report reviewed showing excreted IV contrast in the urinary collecting system limiting evaluation of the calculi and nonspecific bowel gas pattern. -Vital signs reviewed. Blood pressure 138/70, HR 79, respiratory rate 18, temp 97.9 F, and SpO2 of 99% on room air. CODE STATUS: Full code DVT prophylaxis: Lovenox Discussed with: Patient, RN, General Sx PA and gastroenterology DIRECTOR CLINICAL INFORMATION SERVICES Anticipated discharge date: Pending clinical course Anticipated discharge place: Home Patient was seen independently by Nurse Practitioner. This document was prepared using [employer] dictation software. Please allow for errors in boom conveyor operator while rare they do occur. Tremaine Weiner NP rendered care for this patient independently, reviewed the findings and plan as documented in the note above and agree with plan. I did not physically speak with or examine the patient on this date Objective - Vital Signs Vital signs: Vital Signs Temp 97.9 F 11/02/24 07:16 Pulse 79 11/02/24 07:16 Resp 18 11/02/24 07:16 BP 138/75 11/02/24 07:16 Pulse Ox 99 11/02/24 07:16 FiO2 Intake & Output 11/01/24 11/02/24 11/02/24 18:59 06:59 18:59 Weight 81.647 kg Other: # Voids 3 - Labs CBC & Chem 7: 11/02/24 08:00 11/02/24 08:00 Labs: Abnormal Lab Results - Last 24 Hours (Table) 11/01/24 11/01/24 11/01/24 Range/Units 05:25 12:09 17:04 WBC (4.50-10.00) 10*3/uL ESR 52 H (0-30) mm/Hr Chloride (98-107) mmol/L BUN (7-17) mg/dL Glucose (74-99) mg/dL POC Glucose (mg/dL) 168 H 132 H (70-110) mg/dL ALT (4-34) U/L 11/02/24 11/02/24 11/02/24 Range/Units 00:10 06:25 08:00 WBC 11.75 H (4.50-10.00) 10*3/uL ESR (0-30) mm/Hr Chloride (98-107) mmol/L BUN (7-17) mg/dL Glucose (74-99) mg/dL POC Glucose (mg/dL) 128 H 115 H (70-110) mg/dL ALT (4-34) U/L 11/02/24 Range/Units 08:00 WBC (4.50-10.00) 10*3/uL ESR (0-30) mm/Hr Chloride 110 H (98-107) mmol/L BUN 28 H (7-17) mg/dL Glucose 125 H (74-99) mg/dL POC Glucose (mg/dL) (70-110) mg/dL ALT 35 H (4-34) U/L
[2024-11-02 13:58] VITALS: BMI 29.9
[2024-11-02 17:50] LABS: Glucose,Whole Blood 108 mg/dL (70-110)
[2024-11-02 23:57] LABS: Glucose,Whole Blood 121 mg/dL (70-110)
[2024-11-03 05:46] LABS: Glucose,Whole Blood 111 mg/dL (70-110)
[2024-11-03 08:35] LABS: HCT 33.9 % (37.2-46.3); HGB 11.1 g/dL (12.0-15.0); MCH 30.2 pg (27.0-32.0); MCHC 32.7 g/dL (32.0-37.0); MCV 92.4 FL (80.0-97.0); Mean Platelet Volume 10.7 FL (9.5-12.2); NRBC Per 100 WBC 0 X 10*3/uL (0.00-0.01); Platelet Count 242 X 10*3/uL (140-440); RBC 3.67 X 10*6/uL (4.10-5.20); RDW 14.1 % (11.5-14.5); WBC 9.56 X 10*3/uL (4.50-10.00)
[2024-11-03 09:10] LABS: ALT 29 U/L (8-44); AST 27 U/L (13-35); Albumin 3.7 g/dL (3.8-4.9); Albumin/Globulin Ratio 1.76 Ratio (1.60-3.17); Alkaline Phosphatase 96 U/L (41-126); BUN/Creat Ratio 29.14 Ratio (12.00-20.00); Blood Urea Nitrogen 20.4 mg/dL (9.0-27.0); Calcium 9.4 mg/dL (8.7-10.3); Carbon Dioxide 22.8 mmol/L (21.6-31.8); Chloride 109 mmol/L (96-109); Globulin 2.1 g/dL (1.6-3.3); Glucose 115 mg/dL (70-110); Magnesium 2.3 mg/dL (1.5-2.4); Potassium 4.8 mmol/L (3.5-5.5); Sodium 138 mmol/L (135-145); Total Bilirubin 0.3 mg/dL (0.3-1.2); Total Protein 5.8 g/dL (6.2-8.2)
--- NOTE | 2024-11-03 10:07 | US ---
EXAMINATION TYPE: US pelvic limited DATE OF EXAM: 11/03/2024 COMPARISON: CT 2024 CLINICAL INDICATION: Female, 69 years old with history of postmenopausal vaginal bleeding; TECHNIQUE: Transabdominal (TA). FINDINGS: Date of LMP: 30 years ago 1. Uterus: surgically absent 2. Endometrium: surgically absent 3. Right Ovary: surgically absent 4. Left Ovary: surgically absent 5. Bilateral Adnexa: wnl 6. Posterior cul-de-sac: wnl Postsurgical changes with surgical absence of the uterus, endometrium, and both ovaries. No free flui d identified. No mass is identified. IMPRESSION: 1. No ultrasound evidence for acute process. 2. Postsurgical changes from total hysterectomy with bilateral oophorectomy. No suspicious masses mary ntified. [facility], , 11/03/2024 10:05 AM
--- NOTE | 2024-11-03 11:09 | P.PN ---
Subjective Progress Note Date: 11/03/24 Principal diagnosis: Crohn's disease, small bowel obstruction This a pleasant 69-year-old female with a history of Crohn's disease diagnosed at age 16 with history of terminal ileum resection over 30 years ago who presented to the emergency department with complaints of abdominal pain with vomiting. Patient states pain started intermittently about 2 weeks ago mostly on the left side. Yesterday afternoon she ate lunch following lunch she vomited was feeling dizzy but later on felt better. At dinnertime she tried to eat couple pieces of toast by 4 AM she was vomiting that up and having left sided abdominal pain. She came in for further evaluation. States she has not had a bowel movement for 2 to 3 days. Normal bowel movement is 1-2 loose stools daily. She denies any blood in her stool. She is not taking any medications for her Crohn's disease. Last EGD and colonoscopy 05/10/2023. Upper endoscopy with findings of mild antral gastritis, moderate size hiatal hernia, distal esophageal scotch gaze ring status post balloon dilation. Colonoscopy revealed distal sigmoid colon polyp status post polypectomy and scattered sigmoid diverticulosis. 11/02/2024 Patient seen and examined today as a follow-up. She is sitting up in bed and appears comfortable. States abdominal pain has resolved. Patient had a bowel movement. Denies any nausea or vomiting. She has been afebrile. Sed rate was elevated at 52 CRP was normal 11/03/2024 Patient seen and examined today as a follow-up. She denies any abdominal pain did have a little lower abdominal cramping earlier this morning. Tolerating full liquid diet. No nausea or vomiting. Had another bowel movement today which she states was loose, nonbloody. She is afebrile. Objective - Vital Signs Vital signs: Vital Signs Temp 97.5 F L 11/03/24 07:55 Pulse 93 11/03/24 07:55 Resp 16 11/03/24 07:55 BP 134/72 11/03/24 07:55 Pulse Ox 97 11/03/24 07:55 FiO2 Intake & Output 11/02/24 11/03/24 11/03/24 18:59 06:59 18:59 Weight 81.647 kg Other: # Voids 3 2 - Exam General appearance: The patient is alert, oriented, appears in no acute distress. HET: Head is normocephalic and atraumatic. Conjunctiva pink. Sclera anicteric. Neck: Supple without lymphadenopathy. Abdomen: Soft, nontender, nondistended. Extremities: Normal skin color and turgor. No pedal edema Skin: No rashes, no jaundice Neurological: No focal deficits. Alert and oriented. - Labs CBC & Chem 7: 11/03/24 03:49 11/03/24 03:49 Labs: Abnormal Lab Results - Last 24 Hours (Table) 11/02/24 11/02/24 11/03/24 Range/Units 12:10 23:48 03:49 RBC 3.67 L (4.10-5.20) X 10*6/uL Hgb 11.1 L (12.0-15.0) g/dL Hct 33.9 L (37.2-46.3) % BUN/Creatinine Ratio (12.00-20.00) Ratio Glucose (70-110) mg/dL POC Glucose (mg/dL) 117 H 121 H (70-110) mg/dL Total Protein (6.2-8.2) g/dL Albumin (3.8-4.9) g/dL 11/03/24 11/03/24 Range/Units 03:49 05:44 RBC (4.10-5.20) X 10*6/uL Hgb (12.0-15.0) g/dL Hct (37.2-46.3) % BUN/Creatinine Ratio 29.14 H (12.00-20.00) Ratio Glucose 115 H (70-110) mg/dL POC Glucose (mg/dL) 111 H (70-110) mg/dL Total Protein 5.8 L (6.2-8.2) g/dL Albumin 3.7 L (3.8-4.9) g/dL Assessment and Plan (1) Crohns disease Narrative/Plan: 69-year-old female with longstanding history of controlled Crohn's disease not on any medication with history of terminal ileum resection over 35 years ago presenting with left-sided abdominal pain with nausea and vomiting and no bowel movement for 2 [address] evidence of Crohn's disease with focal short segment stricture involving ileum within the anterior abdomen resulting in a small bowel obstruction. Keep n.p.o. for now. Add Solu-Medrol 20 mg every 8 hours. CRP sed rate ordered. Current Visit: No Status: Acute Code(s): K50.90 - CROHN'S DISEASE, UNSPECIFIED, WITHOUT COMPLICATIONS SNOMED Code(s): 37293760 (2) Partial small bowel obstruction Narrative/Plan: General surgery following. Patient had bowel movement, small bowel obstruction resolved. Current Visit: Yes Status: Acute Code(s): K56.600 - PARTIAL INTESTINAL OBSTRUCTION, UNSPECIFIED TO CAUSE SNOMED Code(s): 969762495 Plan: 1. Continue symptomatic and supportive care 2. Low fiber diet for lunch 3. Transition to prednisone 40 mg daily, taper by 5 mg weekly 4. Patient is cleared from gastroenterology for discharge if she tolerates her lunch Recommend outpatient follow-up in 1 to 2 weeks with gastroenterology. Thank you for this consultation. Dr. Tania Garcia I agree with the dictator's note, documented as a scribe by Radha Stack.
--- NOTE | 2024-11-03 11:50 | P.PN ---
Subjective Progress Note Date: 11/03/24 Hospital course: Patient is a very pleasant 69-year-old female with a past medical history of Crohn's disease follows Dr. Garcia, hypertension, GERD, cluster headaches, and skin cancer status post removal. Presented to the emergency department with a chief complaint of left lower quadrant abdominal pain. Patient reports symptoms began approximately 2 weeks ago and were initially intermittent but have progressively worsened in intensity and frequency and have been persistent over the past 48 hours. Patient does report experiencing nausea and vomiting prior to arrival but reports nausea and vomiting has fully subsided since arrival to our facility with last episode of emesis pain just prior to arrival. Denies having any hematemesis/coffee-ground emesis. She reports last passing flatus being yesterday evening and states last bowel movement was 2 days ago. Patient denies having any fevers, chills, diaphoresis, headache lightheadedness, dizziness, chest pain, palpitations, shortness of breath, or experiencing any difficulties with her changes in her urinary function. Patient does report following with stockroom selector, Dr. Garcia and states history of bowel resection 40 years ago. Upon arrival to our facility, patient underwent evaluation in the emergency department. Vital signs upon arrival show blood pressure 142/81, heart rate 107, respiratory rate 18, temp 98.4 F, and SpO2 of 97% on room air. Labs completed and reviewed. CBC unremarkable. BMP showing bicarb of 28 and elevated BUN of 26. Blood glucose was 125. Calcium was el evated at 10.3. Liver profile showing elevated AST of 37 and alkaline phosphatase of 139 otherwise normal findings. Lipase normal findings at 147. CT abdomen and pelvis was completed with contrast showing findings of Crohn's disease with focal short segment stricture involving the ileum within the anterior abdomen resulting in partial small bowel obstruction and distal chronic colonic diverticulosis without evidence for acute diverticulitis and large hiatal hernia with approximately 50% of the stomach intrathoracic region and bilateral renal calculi with a 9 mm calculus in the left renal pelvis with no evidence of hydronephrosis. Patient admitted under our services with consultation to gastroenterology and general surgery. Physical exam: Patient seen and fully evaluated at bedside this morning. She reports total improvement of abdominal pain, but does report having a couple episodes of vaginal bleeding/spotting this morning. She reports history of vaginal bleeding after her hysterectomy and does report previous blood transfusion but states she never found out what was going on. She denies having any pain or discomfort. She is tolerating full liquid diet. Denies any other complaints. Vital signs reviewed and stable. General: Nontoxic, no distress and appears stated age. Derm: Skin warm and dry, normal coloration for ethnicity. Head: Atraumatic, normocephalic and symmetric. Eyes: EOM's intact, no lid lag, and anicteric sclera Mouth: no lip lesions, mucus membranes moist Cardiovascular: regular rate and rhythm with normal S1S2, no murmur, positive posterior tibial pulses bilaterally, and cap refill < 2 seconds. Lungs: Respirations even, regular, and unlabored on room air. Lungs CTA bilaterally, no rhonchi, no rales, no wheezing, and no accessory muscle usage. Abdominal: soft, nontender upon palpation this morning, no guarding, no appreciable organomegaly Ext: ROM intact. No gross muscle atrophy, no edema, no contractures Neuro: Speech clear, face symmetrical and CN II-XII grossly intact with no noted focal neuro deficits Psych: Alert and oriented to person, place, time, and situation. Appropriate and pleasant affect. Assessment and Plan of Care: Crohn's Exacerbation Partial small bowel obstruction History of small bowel resection, 40 years ago - Gastroenterology following, discussed case with gastroenterology OFFICE SUPPORT SPECIALIST. - General Surgery following, discussed case with general surgery PA. - Diet advanced this morning to full liquid. Patient tolerating well. - Symptomatic care and pain management with Zofran 4 mg IVP every 6 hours as needed for nausea or vomiting and Dilaudid 0.5 mg IVP every 4 hours as needed for pain. - Patient received Solu-Medrol 125 mg IVP x 1 dose in the ED and to continue Solu-Medrol 20 mg IVP every 8 hours at this time. - GI prophylaxis with Protonix 40 mg IVP daily Normocytic anemia Vaginal bleeding, hx of hysterectomy -Hemoglobin initially 15.0 and is down trended over the past 48 hours to 12.4 and now 11.1. This is possibly secondary to hemoconcentration patient did receive IV fluid hydration so possible dilution, however patient reports having a couple episodes of vaginal bleeding. With history of Crohn's disease and need for previous blood transfusion, will evaluate further to rule out underlying mass or rectovaginal fistula. -Order placed for limited abdominal/pelvic ultrasound to rule out underlying mass or bladder mass -Consult placed to gynecology for evaluation to rule out rectovaginal fistula -Continue to monitor CBC closely with repeat CBC later this evening and again tomorrow morning, transfuse if indicated for hemoglobin less than 7. -Lovenox discontinued and patient placed in CINTIA hose and SCDs for DVT prophylaxi s. Hypertension -Monitor vital signs and continue daily medication regimen with losartan 75 mg daily. Data and imaging reviewed: -Morning labs reviewed. CBC showing mild normocytic anemia with hemoglobin of 11.1. BMP unremarkable. Blood glucose 115. Magnesium 2.3. Liver profile unremarkable with exception of low total protein of 5.8 and albumin of 3.7 -Order placed for pelvic ultrasound. Upon following up with results, ultrasound revealing no evidence for acute process showing postsurgical changes from total hysterectomy with bilateral oophorectomy and no suspicious masses noted. -Vital signs reviewed. Blood pressure 134/72, heart rate 93, respiratory rate 16, temp 97.5 F, and SpO2 of 97% on room air CODE STATUS: Full code DVT prophylaxis: SCDs secondary to acute postmenopausal vaginal bleed Discussed with: Patient, RN, General Sx PA gastroenterology OFFICE SUPPORT SPECIALIST, and evening sitter, Dr. Meier Anticipated discharge date: Pending clinical course Anticipated discharge place: Home Patient was seen independently by Nurse Practitioner. This document was prepared using [employer] dictation software. Please allow for errors in primary substance abuse counselor while rare they do occur. Tremaine Weiner NP rendered care for this patient independently, reviewed the findings and plan as documented in the note above and agree with plan. I did not physically speak with or examine the patient on this date. . Objective - Vital Signs Vital signs: Vital Signs Temp 97.5 F L 11/03/24 07:55 Pulse 93 11/03/24 07:55 Resp 16 11/03/24 07:55 BP 134/72 11/03/24 07:55 Pulse Ox 97 11/03/24 07:55 FiO2 Intake & Output 11/02/24 11/03/24 11/03/24 18:59 06:59 18:59 Weight 81.647 kg Other: # Voids 3 2 - Labs CBC & Chem 7: 11/03/24 03:49 11/03/24 03:49 Labs: Abnormal Lab Results - Last 24 Hours (Table) 11/02/24 11/02/24 11/03/24 Range/Units 12:10 23:48 03:49 RBC 3.67 L (4.10-5.20) X 10*6/uL Hgb 11.1 L (12.0-15.0) g/dL Hct 33.9 L (37.2-46.3) % BUN/Creatinine Ratio (12.00-20.00) Ratio Glucose (70-110) mg/dL POC Glucose (mg/dL) 117 H 121 H (70-110) mg/dL Total Protein (6.2-8.2) g/dL Albumin (3.8-4.9) g/dL 11/03/24 11/03/24 Range/Units 03:49 05:44 RBC (4.10-5.20) X 10*6/uL Hgb (12.0-15.0) g/dL Hct (37.2-46.3) % BUN/Creatinine Ratio 29.14 H (12.00-20.00) Ratio Glucose 115 H (70-110) mg/dL POC Glucose (mg/dL) 111 H (70-110) mg/dL Total Protein 5.8 L (6.2-8.2) g/dL Albumin 3.7 L (3.8-4.9) g/dL
--- NOTE | 2024-11-03 13:13 | P.PN ---
Subjective Progress Note Date: 11/03/24 SURGICAL PROGRESS NOTE CHIEF COMPLAINT: Crohn's exacerbation HISTORY OF PRESENT ILLNESS: Patient is complaining of some mild discomfort in the left lower quadrant of the abdomen. She did have 2 bowel movements and is having flatus. She is tolerating the full liquid diet. She did complain of some vaginal spotting. Afebrile. WBC 9.56 PHYSICAL EXAM: VITAL SIGNS: Reviewed. GENERAL: Well-developed in no acute distress. ABDOMEN: Soft. Nondistended. Mild tenderness left lower quadrant NEUROLOGIC: Alert and oriented. Cranial nerves II through XII grossly intact. ASSESSMENT: 1. Crohn's exacerbation 2. Partial small bowel obstruction secondary to Crohn's disease and stricture. CT scan reports Crohn's disease with focal short segment stricture involving the ileum within the anterior abdomen results and a partial small bowel obstruction. 3. Large hiatal hernia with approximately 50% of the stomach intrathoracic 4. Leukocytosis likely due to steroids PLAN: -Advance diet to low fiber, soft foods -Patient can be discharged from surgical standpoint if tolerating diet and cleared by GI service -Steroids per GI service -Recommend CLINICAL APPEALS RN evaluation for vaginal spotting Physician Stripper Preliminary note has been reviewed by physician. Signing provider agrees with the documented findings, assessment, and plan of care. Attestation Patient seen and examined at bedside on 11/03/2024. She has had multiple bowel movements. It appears that her bowel obstruction has resolved. Advance diet. Patient is noted to have some mild vaginal spotting and CLINICAL APPEALS RN evaluation is pending. No plan for acute surgical intervention. Continue current management. Byron Davis, Objective - Vital Signs Vital signs: Vital Signs Temp 97.9 F 11/03/24 13:02 Pulse 61 11/03/24 13:02 Resp 18 11/03/24 13:02 BP 135/72 11/03/24 13:02 Pulse Ox 98 11/03/24 13:02 FiO2 Intake & Output 11/02/24 11/03/24 11/03/24 18:59 06:59 18:59 Weight 81.647 kg Other: # Voids 3 2 - Labs CBC & Chem 7: 11/04/24 05:40 11/04/24 05:40 Labs: Abnormal Lab Results - Last 24 Hours (Table) 11/02/24 11/03/24 11/03/24 Range/Units 23:48 03:49 03:49 RBC 3.67 L (4.10-5.20) X 10*6/uL Hgb 11.1 L (12.0-15.0) g/dL Hct 33.9 L (37.2-46.3) % BUN/Creatinine Ratio 29.14 H (12.00-20.00) Ratio Glucose 115 H (70-110) mg/dL POC Glucose (mg/dL) 121 H (70-110) mg/dL Total Protein 5.8 L (6.2-8.2) g/dL Albumin 3.7 L (3.8-4.9) g/dL 11/03/24 Range/Units 05:44 RBC (4.10-5.20) X 10*6/uL Hgb (12.0-15.0) g/dL Hct (37.2-46.3) % BUN/Creatinine Ratio (12.00-20.00) Ratio Glucose (70-110) mg/dL POC Glucose (mg/dL) 111 H (70-110) mg/dL Total Protein (6.2-8.2) g/dL Albumin (3.8-4.9) g/dL
[2024-11-03 18:33] LABS: HCT 35.3 % (37.2-46.3); HGB 11.7 g/dL (12.0-15.0); MCH 30.4 pg (27.0-32.0); MCHC 33.1 g/dL (32.0-37.0); MCV 91.7 fL (80.0-97.0); Mean Platelet Volume 9.8 fL (9.5-12.2); Platelet Count 274 10*3/uL (140-440); RBC 3.85 10*6/uL (4.10-5.20); RDW 14.1 % (11.5-14.5); WBC 10.75 10*3/uL (4.50-10.00)
[2024-11-04 02:45] VITALS: RESP 16
[2024-11-04 07:59] LABS: HCT 33.8 % (37.2-46.3); HGB 10.8 g/dL (12.0-15.0); MCH 29.2 pg (27.0-32.0); MCV 91.4 FL (80.0-97.0); Mean Platelet Volume 10.4 FL (9.5-12.2); NRBC Per 100 WBC 0 X 10*3/uL (0.00-0.01); Platelet Count 249 X 10*3/uL (140-440)
[2024-11-04] MEDS: predniSONE 20 MG TAB PO SCH (08:13)
[2024-11-04 08:19] VITALS: BP 159/81; PULSE 64; TEMP 97.9
[2024-11-04 08:20] LABS: BUN/Creat Ratio 26.71 Ratio (12.00-20.00); Blood Urea Nitrogen 18.7 mg/dL (9.0-27.0); Glucose 113 mg/dL (70-110)
[2024-11-04 08:21] LABS: Calcium 9.1 mg/dL (8.7-10.3); Carbon Dioxide 22.2 mmol/L (21.6-31.8); Chloride 107 mmol/L (96-109); Magnesium 2.1 mg/dL (1.5-2.4); Potassium 4.7 mmol/L (3.5-5.5); Sodium 139 mmol/L (135-145)
--- NOTE | 2024-11-04 09:13 | P.PN ---
Subjective Progress Note Date: 11/04/24 Principal diagnosis: Crohn's disease, small bowel obstruction This a pleasant 69-year-old female with a history of Crohn's disease diagnosed at age 16 with history of terminal ileum resection over 30 years ago who presented to the emergency department with complaints of abdominal pain with vomiting. Patient states pain started intermittently about 2 weeks ago mostly on the left side. Yesterday afternoon she ate lunch following lunch she vomited was feeling dizzy but later on felt better. At dinnertime she tried to eat couple pieces of toast by 4 AM she was vomiting that up and having left sided abdominal pain. She came in for further evaluation. States she has not had a bowel movement for 2 to 3 days. Normal bowel movement is 1-2 loose stools daily. She denies any blood in her stool. She is not taking any medications for her Crohn's disease. Last EGD and colonoscopy 05/10/2023. Upper endoscopy with findings of mild antral gastritis, moderate size hiatal hernia, distal esophageal scotch gaze ring status post balloon dilation. Colonoscopy revealed distal sigmoid colon polyp status post polypectomy and scattered sigmoid diverticulosis. 11/02/2024 Patient seen and examined today as a follow-up. She is sitting up in bed and appears comfortable. States abdominal pain has resolved. Patient had a bowel movement. Denies any nausea or vomiting. She has been afebrile. Sed rate was elevated at 52 CRP was normal 11/03/2024 Patient seen and examined today as a follow-up. She denies any abdominal pain did have a little lower abdominal cramping earlier this morning. Tolerating full liquid diet. No nausea or vomiting. Had another bowel movement today which she states was loose, nonbloody. She is afebrile. 11/04/2024 Patient seen and examined today as a follow-up. She was kept overnight secondary to new onset vaginal bleeding. Was seen by gynecology, vaginal ultrasound done without any abnormal findings. No further vaginal bleeding. No abdominal pain, nausea or vomiting. Tolerating regular diet. Objective - Vital Signs Vital signs: Vital Signs Temp 97.9 F 11/04/24 08:00 Pulse 64 11/04/24 08:00 Resp 16 11/04/24 08:00 BP 159/81 11/04/24 08:00 Pulse Ox 95 11/04/24 08:00 FiO2 Intake & Output 11/03/24 11/04/24 11/04/24 18:59 06:59 18:59 Intake Total 1620 Balance 1620 Intake: Oral 1620 Other: # Voids 3 2 # Bowel Movements 1 - Exam General appearance: The patient is alert, oriented, appears in no acute distress. HET: Head is normocephalic and atraumatic. Conjunctiva pink. Sclera anicteric. Neck: Supple without lymphadenopathy. Abdomen: Soft, nontender, nondistended. Extremities: Normal skin color and turgor. No pedal edema Skin: No rashes, no jaundice Neurological: No focal deficits. Alert and oriented. - Labs CBC & Chem 7: 11/04/24 05:40 11/04/24 05:40 Labs: Abnormal Lab Results - Last 24 Hours (Table) 11/03/24 11/03/24 11/04/24 Range/Units 03:49 18:03 05:40 WBC 10.75 H (4.50-10.00) 10*3/uL RBC 3.85 L 3.70 L (4.10-5.20) 10*6/uL Hgb 11.7 L 10.8 L (12.0-15.0) g/dL Hct 35.3 L 33.8 L (37.2-46.3) % BUN/Creatinine Ratio 29.14 H (12.00-20.00) Ratio Glucose 115 H (70-110) mg/dL Total Protein 5.8 L (6.2-8.2) g/dL Albumin 3.7 L (3.8-4.9) g/dL 11/04/24 Range/Units 05:40 WBC (4.50-10.00) 10*3/uL RBC (4.10-5.20) 10*6/uL Hgb (12.0-15.0) g/dL Hct (37.2-46.3) % BUN/Creatinine Ratio 26.71 H (12.00-20.00) Ratio Glucose 113 H (70-110) mg/dL Total Protein (6.2-8.2) g/dL Albumin (3.8-4.9) g/dL Assessment and Plan (1) Crohns disease Narrative/Plan: 69-year-old female with longstanding history of controlled Crohn's disease not on any medication with history of terminal ileum resection over 35 years ago pre senting with left-sided abdominal pain with nausea and vomiting and no bowel movement for 2 [address] evidence of Crohn's disease with focal short segment stricture involving ileum within the anterior abdomen resulting in a small bowel obstruction. Keep n.p.o. for now. Add Solu-Medrol 20 mg every 8 hours. CRP sed rate ordered. Current Visit: No Status: Acute Code(s): K50.90 - CROHN'S DISEASE, UNSPECIFIED, WITHOUT COMPLICATIONS SNOMED Code(s): 45857813 (2) Partial small bowel obstruction Narrative/Plan: General surgery following. Patient had bowel movement, small bowel obstruction resolved. Current Visit: Yes Status: Acute Code(s): K56.600 - PARTIAL INTESTINAL OBSTRUCTION, UNSPECIFIED TO CAUSE SNOMED Code(s): 108747351 Plan: 1. Continue symptomatic and supportive care 2. Low fiber diet for lunch 3. Transition to prednisone 40 mg daily, taper by 5 mg weekly 4. Patient is cleared from gastroenterology for discharge if she tolerates her lunch Recommend outpatient follow-up in 1 to 2 weeks with gastroenterology. Thank you for this consultation. We will sign off at this time. Dr. Tania Garcia I agree with the dictator's note, documented as a scribe by Radha Stack.
--- NOTE | 2024-11-04 11:20 | P.DS ---
Providers Date of admission: 11/01/24 07:44 Expected date of discharge: 11/04/24 Attending physician: Mary Sandoval MD Consults: 11/01/24 07:39 Consult Physician Urgent Consulting Provider: Kya Garcia Consult Reason/Comments: Partial small bowel, Crohn's disease Do you want consulting provider notified?: Yes 11/01/24 08:10 Consult Physician Routine Consulting Provider: Byron Davis Consult Reason/Comments: SBO, crohn's disease Do you want consulting provider notified?: Yes Primary care physician: Grey Whitt MD Hospital Course: Discharge Diagnosis: Crohn's Exacerbation. Patient was hospitalized and evaluated by general surgery and gastroenterology. She was placed on IV steroids and is being discharged home on extended prednisone taper for Crohn's exacerbation. She had full resolution of abdominal pain, tolerating oral intake and reports normal bowel function with soft formed stools. Patient to follow-up outpatient with PCP in 1 to 2 days and with senior pastor in 1 week. Partial small bowel obstruction. Resolved with conservative measures, bowel rest, and IV fluid hydration. History of small bowel resection, 40 years ago. Normocytic anemia. Hemoglobin stable at 10.8 on discharge, patient denies any further episodes of vaginal bleeding.. Vaginal bleeding, hx of hysterectomy. Pelvic ultrasound completed normal findings showing no pelvic mass or bladder emergency reported. Patient was evaluated by gynecology and cleared from their perspective with no reported findings of rectovaginal fistula. Hypertension. Continue daily medication regimen with losartan 75 mg daily. Hospital course: Patient is a very pleasant 69-year-old female with a past medical history of Crohn's disease follows Dr. Garcia, hypertension, GERD, cluster headaches, and skin cancer status post removal. Presented to the emergency department with a chief complaint of left lower quadrant abdominal pain. Patient reports symptoms began approximately 2 weeks ago and were initially intermittent but have progressively worsened in intensity and frequency and have been persistent over the past 48 hours. Patient does report experiencing nausea and vomiting prior to arrival but reports nausea and vomiting has fully subsided since arrival to our facility with last episode of emesis pain just prior to arrival. Denies having any hematemesis/coffee-ground emesis. She reports last passing flatus being yesterday evening and states last bowel movement was 2 days ago. Patient denies having any fevers, chills, diaphoresis, headache lightheadedness, dizziness, chest pain, palpitations, shortness of breath, or experiencing any difficulties with her changes in her urinary function. Patient does report following with senior pastor, Dr. Garcia and states history of bowel resection 40 years ago. Upon arrival to our facility, patient underwent evaluation in the emergency department. Vital signs upon arrival show blood pressure 142/81, heart rate 107, respiratory rate 18, temp 98.4 F, and SpO2 of 97% on room air. Labs completed and reviewed. CBC unremarkable. BMP showing bicarb of 28 and elevated BUN of 26. Blood glucose was 125. Calcium was elevated at 10.3. Liver profile showing elevated AST of 37 and alkaline phosphatase of 139 otherwise normal findings. Lipase normal findings at 147. CT abdomen and pelvis was completed with contrast showing findings of Crohn's disease with focal short segment stricture involving the ileum within the anterior abdomen resulting in partial small bowel obstruction and distal chronic colonic diverticulosis without evidence for acute diverticulitis and large hiatal hernia with approximately 50% of the stomach intrathoracic region and bilateral renal calculi with a 9 mm calculus in the left renal pelvis with no evidence of hydronephrosis. Patient admitted under our services with consultation to gastroenterology and general surgery. Physical exam: Vital signs reviewed and stable. General: Nontoxic, no distress and appears stated age. Derm: Skin warm and dry, normal coloration for ethnicity. Head: Atraumatic, normocephalic and symmetric. Eyes: EOM's intact, no lid lag, and anicteric sclera Mouth: no lip lesions, mucus membranes moist Cardiovascular: regular rate and rhythm with normal S1S2, no murmur, positive posterior tibial pulses bilaterally, and cap refill < 2 seconds. Lungs: Respirations even, regular, and unlabored on room air. Lungs CTA bilaterally, no rhonchi, no rales, no wheezing, and no accessory muscle usage. Abdominal: Bowel sounds x 4, abdomen is soft, nontender upon palpation, no guarding, no appreciable organomegaly Ext: ROM intact. No gross muscle atrophy, no edema, no contractures Neuro: Speech clear, face symmetrical and CN II-XII grossly intact with no noted focal neuro deficits Psych: Alert and oriented to person, place, time, and situation. Appropriate and pleasant affect. A total of 33 minutes of time were spent preparing this complex discharge summary. Pt was discharged on 11/04/2024 at 9:11 AM. Patient was seen independently by Nurse Practitioner. This document was prepared using [employer] dictation software. Please allow for errors in supervisor burling and joining while rare they do occur. Tremaine Weiner NP rendered care for this patient independently, reviewed the findings and plan as documented in the note above. I did not physically speak with or examine the patient on this date. Patient Condition at Discharge: Stable Plan - Discharge Summary Discharge Rx Participant: Yes New Discharge Prescriptions: New predniSONE 0 mg PO DIRECTED #126 tab Continue Losartan [Cozaar] 75 mg PO DAILY Multivit with Calcium,Iron,Min [Women's Multivitamin] 1 tab PO DAILY Omeprazole [PriLOSEC] 40 mg PO DAILY Famotidine [Pepcid] 20 mg PO HS Calcium Carbonate/Vitamin D3 [Calcium 500-Vit D3 5 Mcg (200 Iu)] 2 tab PO DAILY Discharge Medication List Losartan [Cozaar] 75 mg PO DAILY 02/16/20 [History] Famotidine [Pepcid] 20 mg PO HS 04/30/23 [History] Multivit with Calcium,Iron,Min [Women's Multivitamin] 1 tab PO DAILY 04/30/23 [History] Calcium Carbonate/Vitamin D3 [Calcium 500-Vit D3 5 Mcg (200 Iu)] 2 tab PO DAILY 11/01/24 [History] Omeprazole [PriLOSEC] 40 mg PO DAILY 11/01/24 [History] predniSONE 0 mg PO DIRECTED #126 tab 11/03/24 [Rx] Follow up Appointment(s)/Referral(s): Grey Whitt MD [Primary Care Provider] - 1-2 days Kya Garcia MD [STAFF PHYSICIAN] - 1 Week Patient Instructions/Handouts: Crohn Disease (DC) Discharge Disposition: HOME SELF-CARE
--- NOTE | 2024-11-04 15:23 | P.PN ---
Subjective Progress Note Date: 11/04/24 SURGICAL PROGRESS NOTE CHIEF COMPLAINT: Crohn's exacerbation HISTORY OF PRESENT ILLNESS: Patient is feeling better. Denies abdominal pain. She is tolerating diet. She had no further vaginal spotting. She has been having bowel movements she is scheduled for discharge today. WBC 8.40 PHYSICAL EXAM: VITAL SIGNS: Reviewed. GENERAL: Well-developed in no acute distress. ABDOMEN: Soft. Nondistended. Nontender NEUROLOGIC: Alert and oriented. Cranial nerves II through XII grossly intact. ASSESSMENT: 1. Crohn's exacerbation 2. Partial small bowel obstruction secondary to Crohn's disease and stricture. improved. CT scan reports Crohn's disease with focal short segment stricture involving the ileum within the anterior abdomen results and a partial small bowel obstruction. 3. Large hiatal hernia with approximately 50% of the stomach intrathoracic 4. Leukocytosis likely due to steroids PLAN: -Okay for discharge from surgical standpoint -Steroids per GI service Physician [employer] Mechanic note has been reviewed by physician. Signing provider agrees with the documented findings, assessment, and plan of care. Attestation Patient feeling better. Having bowel function. Evaluated by I O PSYCHOLOGIST team secondary to vaginal spotting. Obstruction appears to have resolved. Steroids per GI service. Surgically stable for discharge. Byron Davis DO Objective - Vital Signs Vital signs: Vital Signs Temp 97.9 F 11/04/24 08:00 Pulse 64 11/04/24 08:00 Resp 16 11/04/24 08:00 BP 159/81 11/04/24 08:00 Pulse Ox 95 11/04/24 08:00 FiO2 Intake & Output 11/03/24 11/04/24 11/04/24 18:59 06:59 18:59 Intake Total 1620 Balance 1620 Intake: Oral 1620 Other: # Voids 3 2 # Bowel Movements 1 - Labs CBC & Chem 7: 11/04/24 05:40 11/04/24 05:40 Labs: Abnormal Lab Results - Last 24 Hours (Table) 11/03/24 11/04/24 11/04/24 Range/Units 18:03 05:40 05:40 WBC 10.75 H (4.50-10.00) 10*3/uL RBC 3.85 L 3.70 L (4.10-5.20) 10*6/uL Hgb 11.7 L 10.8 L (12.0-15.0) g/dL Hct 35.3 L 33.8 L (37.2-46.3) % BUN/Creatinine Ratio 26.71 H (12.00-20.00) Ratio Glucose 113 H (70-110) mg/dL
== END 2024-11-04 09:44 | disposition home or self-care (01) | DRG 386 ==
LOC: EC 05:03 → 5NMEDONC 07:43 → OBSVTOIN 07:44 → 5NMEDONC 08:42
PROVIDERS: ADMIT Student in an Organized Health Care Education/Training Program; ATTEND Student in an Organized Health Care Education/Training Program
PROC: 0D9670Z Drainage of Stomach with Drainage Device, Via Natural or Artificial Opening (ICD-10-PCS; principal; 2024-11-01)
DX: K50.012 Crohn's disease of small intestine with intestinal obstruction (principal); K56.600 Partial intestinal obstruction, unspecified as to cause; D64.9 Anemia, unspecified; I10 Essential (primary) hypertension; E87.8 Other disorders of electrolyte and fluid balance, not elsewhere classified; K44.9 Diaphragmatic hernia without obstruction or gangrene; K57.30 Diverticulosis of large intestine without perforation or abscess without bleeding; K21.9 Gastro-esophageal reflux disease without esophagitis; N93.9 Abnormal uterine and vaginal bleeding, unspecified; T38.0X5A Adverse effect of glucocorticoids and synthetic analogues, initial encounter; D72.829 Elevated white blood cell count, unspecified; F17.210 Nicotine dependence, cigarettes, uncomplicated; Z79.899 Other long term (current) drug therapy; Z85.828 Personal history of other malignant neoplasm of skin
CPT/HCPCS: 36415; 74018; 74177; 76857; 80048; 80053; 83690; 83735; 85025; 85027; 85652; 86140; 96361; 96374; 96375; 99285

== ENCOUNTER → 2024-11-15 | Outpatient (CLI) | payer MEDICARE ==
[2024-11-15 15:09] LABS: Basophils # (A) 0.02 X 10*3/uL (0.00-0.10); Basophils % (A) 0.2 %; Eosinophils # (A) 0.03 X 10*3/uL (0.04-0.35); Eosinophils % (A) 0.3 %; HCT 41.7 % (37.2-46.3); HGB 13.3 g/dL (12.0-15.0); Lymphocytes # (A) 1.23 X 10*3/uL (0.90-5.00); Lymphocytes % (A) 10.6 %; MCH 29.5 pg (27.0-32.0); MCHC 31.9 g/dL (32.0-37.0); MCV 92.5 FL (80.0-97.0); Mean Platelet Volume 9.4 FL (9.5-12.2); Monocytes % (A) 3.4 %; NRBC Per 100 WBC 0 X 10*3/uL (0.00-0.01); Neutrophils % (A) 84.9 %; Platelet Count 306 X 10*3/uL (140-440); RBC 4.51 X 10*6/uL (4.10-5.20); RDW 14.6 % (11.5-14.5); WBC 11.65 X 10*3/uL (4.50-10.00)
[2024-11-15 15:20] LABS: ALT 23 U/L (8-44); AST 17 U/L (13-35); Albumin/Globulin Ratio 1.67 Ratio (1.60-3.17); Alkaline Phosphatase 89 U/L (41-126); Blood Urea Nitrogen 22.7 mg/dL (9.0-27.0); C Reactive Protein <0.30 mg/dL (0.00-0.80); Carbon Dioxide 26.1 mmol/L (21.6-31.8); Chloride 102 mmol/L (96-109); Globulin 2.4 g/dL (1.6-3.3); Glucose 96 mg/dL (70-110); Sodium 139 mmol/L (135-145); Total Bilirubin 0.3 mg/dL (0.3-1.2); Total Protein 6.4 g/dL (6.2-8.2)
[2024-11-15 15:51] LABS: Erythrocyte Sedimentation Rate 21 mm/Hr (0-30)
== END | disposition home or self-care (01) ==
LOC: LABWHC1 09:31
PROVIDERS: ATTEND Internal Medicine Gastroenterology
DX: K50.90 Crohn's disease, unspecified, without complications (principal)
CPT/HCPCS: 36415; 80053; 85025; 85652; 86140

== ENCOUNTER → 2024-11-18 | Outpatient (CLI) | payer MEDICARE | END | disposition home or self-care (01) | LOC: LABWHC1 11:30 | PROVIDERS: ATTEND Nurse Practitioner Family | DX: K50.90 Crohn's disease, unspecified, without complications (principal) | CPT/HCPCS: 83993 ==